=== PATIENT | male | born 1935 | race Caucasian/White ===

== ENCOUNTER 2018-07-05 14:39 | Observation (INO) | payer MEDICARE ==
[2018-07-05] MEDS ORDERED: BACIGUENT PACKET TP ONE (14:46)
--- NOTE | 2018-07-05 14:52 | ERPHSYRPT ---
- History of Present Illness Time Seen by Provider: 07/05/18 14:40 Source: patient, family Exam Limitations: no limitations Physician History: patient falling frequently at home; fell Tuesday - confused and slurred speech after that cleared in less then 24 hrs; CT was neg for bleed or stroke; fell again today hitting head and right elbow; suffered skin tear to elbow; no pain; patient remembers falling - tripped at home- not witnessed; confused and slurred speech after fall again today- cleared faster but still mentally "OFF" per family; no neck pain; no seizures or incontinence of focal weakness; general weakness Occurred: this morning, days ago (also 3 days ago) Reason for Fall: lost balance, fell from standing pos Injuries/Pain Location: head, upper extremity (right elbow) Loss of Consciousness: no loss of consciousness Quality: dullness Severity of Pain-Max: mild Severity of Pain-Current: none Modifying Factors: Improves With: nothing Associated Symptoms (Fall): denies symptoms Allergies/Adverse Reactions: No Known Drug Allergies Allergy (Verified 07/05/18 14:55) Home Medications: Clopidogrel Bisulfate [Clopidogrel] 75 mg PO DAILY 07/05/18 [History] Famotidine [Pepcid] 40 mg PO BID 07/05/18 [History] Folic Acid 1 mg PO DAILY 07/05/18 [History] Insulin Detemir [Levemir] 10 units SQ HS 07/05/18 [History] Isosorbide Mononitrate 20 mg [monoKET 20 MG] 20 mg PO TID 07/05/18 [History] Levothyroxine Sodium 75 mcg PO DAILY 07/05/18 [History] Metoprolol Succinate 50 mg [Toprol Xl 50 MG] 50 mg PO DAILY 07/05/18 [ History] Mirtazapine 15 mg PO HS 07/05/18 [History] Ranolazine 500 MG [Ranexa 500 MG] 500 mg PO BID 07/05/18 [History] Rosuvastatin Calcium 5 mg PO DAILY 07/05/18 [History] - Review of Systems Constitutional: No Symptoms Eyes: No Symptoms Ears, Nose, & Throat: No Symptoms Respiratory: No Cough, No Dyspnea, No Wheezing Cardiac: No Chest Pain, No Palpitations, No Syncope Abdominal/Gastrointestinal: No Abdominal Pain, No Nausea, No Vomiting, No Diarrhea Genitourinary Symptoms: No Dysuria, No Hematuria, No Incontinence, No Urinary Retention Musculoskeletal: Arthralgias, Fall, Injury (right elbow skin tear; abrasion post occiput), No Joint Redness, No Joint Pain, No Joint Swelling Skin: No Symptoms Neurological: No Symptoms Psychological: No Symptoms Endocrine: No Symptoms Hematologic/Lymphatic: Anemia, Easy Bleeding, Easy Bruising Immunological/Allergic: No Symptoms - Past Medical History Pertinent Past Medical History: Yes - Past Surgical History Past Surgical History: Yes - Social History Smoking Status: Never smoker Exposure to second hand smoke: No Alcohol Use: None Drug Use: none Patient Lives Alone: Yes Significant Family History: no pertinent family hx - Female History Hx Now: No - Nursing Vital Signs Nursing Vital Signs: Initial Vital Signs Temperature 97.8 F 07/05/18 14:40 Pulse Rate 75 07/05/18 14:40 Blood Pressure 188/104 07/05/18 14:40 O2 Sat by Pulse Oximetry 100 07/05/18 14:40 Pain Scale Pain Intensity 0 - [place] Coma Score Best Eye Response ([place]): (4) open spontaneously Best Verbal Response ([place]): (5) oriented Best Motor Response ([place]): (6) obeys commands [place] Total: 15 - Physical Exam General Appearance: mild distress, alert, thin, other (hard of hearing) Head Injury: lacerations (post occiput; no bleeding or FB), No active bleeding, No Merino's Sign, No raccoon eyes, No swelling, No tenderness Eye Exam: PERRL/EOMI, eyes nml inspection, other (fundi benign) ENT Exam: airway nml, nml ext.inspection, decreased hearing, No evidence of ENT injury, No clotted nasal blood, No malocclusion Neck Exam: supple, trachea midline, full range of motion, normal alignment, normal inspection, No focal neuro deficit, No muscle spasm, No paraspinous muscle tender, No pain on movement of neck, No stiff neck, No tenderness, No meningismus, No carotid bruit, No JVD, No subcutaneous emphysema Respiratory/Chest Exam: normal breath sounds, No chest tenderness, No respiratory distress, No ecchymosis, No crepitus, No rales, No rhonchi, No wheezing, No subcutaneous emphysema, No rib tenderness, No palpable fracture, No paradoxical movements Cardiovascular Exam: normal heart sounds, regular rate/rhythm, normal peripheral pulses, No murmur, No edema, No JVD Gastrointestinal Exam: soft, normal bowel sounds, No tenderness, No distention, No guarding, No pulsatile mass, No rebound, No organomegaly Genitalia Exam: normal genital exam Rectal Exam: deferred Back Exam: normal inspection, normal range of motion, No CVA tenderness, No vertebral tenderness, No rash, No point tenderness Extremity Exam: normal inspection (except for post right elbow with two small bleeding skin tears- no FB), normal range of motion, capillary refill <3 sec, pelvis stable, lacerations (skin teas post right elbow x 2), No riya's sign, No joint swelling, No bony point tenderness, No hip tenderness, No pain with movement, No pedal edema Peripheral Pulses: carotid (R): 4+, carotid (L): 4+, femoral (R): 4+, femoral (L ): 4+, dorsalis-pedis (R): 3+, dorsalis-pedis (L): 3+ Neurologic Exam: alert, oriented x 3, cooperative, bar turner II-XII nml as tested, normal mood/affect, sensation nml, No nml cerebellar function (poor balance), No nml station & gait (unsteady without help), No motor deficits, No facial droop, No slurred speech Skin Exam: normal color, warm, dry, ecchymosis (multiple old), laceration ( scalp post occiput 1 cm non- bleeding; skin tears psot right elbow x 2), No rash , No petechiae, No cyanosis SpO2 Interpretation: normal SpO2: 100 O2 Delivery: Room Air - Course Nursing assessment & vital signs reviewed: Yes - CT Exams Head CT Interpretation: Tele-radiologist Report, No/Intracranial Hemorrhag Ordered Tests: Active Orders 24 hr Category Date Time Status Accucheck ACHS Care 07/05/18 16:11 Ordered Accucheck STAT Care 07/05/18 14:44 Active Ambulate Patient ROUTINE Care 07/05/18 14:44 Active Call Admit Doctor for Orders ON ADMISSION Care 07/05/18 16:13 Ordered Branch Manager STAT Care 07/05/18 14:45 Active Code Status Order ROUTINE Care 07/05/18 16:12 Ordered Fall Protocol ROUTINE Care 07/05/18 16:13 Ordered IV Care Q6H Care 07/05/18 16:12 Ordered IV Insertion STAT Care 07/05/18 14:44 Active Neuro Checks Q4H Care 07/05/18 16:11 Ordered Orthostatic Vital Signs STAT Care 07/05/18 14:[address] in Observation ROUTINE Care 07/05/18 16:12 Ordered Pulse Oximetry (ED) STAT Care 07/05/18 14:44 Active Re-Check Vital Signs STAT Care 07/05/18 14:44 Active Sammy Megn, Apply ROUTINE Care 07/05/18 16:11 Ordered Telemetry q6h Care 07/05/18 16:11 Ordered Weight,Daily 0600 Care 07/05/18 16:11 Ordered Wound Care STAT Care 07/05/18 14:46 Active 2000 Calorie ADA Diet 07/05/18 Dinner Ordered HEAD WITHOUT CONTRAST [CT] Stat Exams 07/05/18 14:44 Completed MRI BRAIN WITH CONTRAST [MRI] Stat Exams 07/05/18 16:15 Ordered BMP Stat Lab 07/05/18 15:20 Completed CBC W DIFF Stat Lab 07/05/18 15:20 Completed PROTIME WITH INR Stat Lab 07/05/18 15:20 Completed Transfer Order Routine Transfer 07/05/18 Ordered Medication Summary Generic Name Dose Route Start Last Admin Trade Name Freq PRN Reason Stop Dose Admin Sodium Chloride 1,000 mls @ 100 mls/hr 07/05/18 14:45 07/05/18 15:55 Sodium Chloride 0.9% 1000 Ml IV 08/04/18 14:44 100 mls/hr .Q10H KATHYA Administration Sodium Chloride 1,000 mls @ 100 mls/hr 07/05/18 16:15 Sodium Chloride 0.9% 1000 Ml IV 08/04/18 16:14 .Q10H KATHYA Discontinued Medications Generic Name Dose Route Start Last Admin Trade Name Freq PRN Reason Stop Dose Admin Bacitracin Zinc 0.9 gm 07/05/18 14:46 07/05/18 15:55 Baciguent Packet TP 07/05/18 14:47 0.9 gm STAT ONE Administration Bacitracin Zinc Confirm 07/05/18 15:47 Baciguent Packet Administered 07/05/18 15:48 Dose 1 gm .ROUTE .STK-MED ONE Lab/Rad Data: Laboratory Result Diagrams 07/05/18 15:20 07/05/18 15:20 Laboratory Results 07/05/18 07/05/18 07/05/18 Range/Units 15:20 15:20 15:20 WBC 4.5 (4.0-10.5) K/mm3 RBC 3.15 L (4.1-5.6) M/mm3 Hgb 10.1 L (12.5-18.0) gm/dl Hct 29.5 L (42-50) % MCV 93.7 (78-100) fl MCH 32.0 (26-32) pg MCHC 34.2 (32-36) g/dl RDW 13.5 (11.5-14.0) % Plt Count 96 L (150-450) K/mm3 MPV 8.7 (6-9.5) fl Gran % 62.1 (36.0-66.0) % Eos # (Auto) 0.11 (0-0.5) Absolute Lymphs (auto) 1.27 (1.0-4.6) Absolute Monos (auto) 0.32 (0.0-1.3) Lymphocytes % 28.0 (24.0-44.0) % Monocytes % 7.1 (0.0-12.0) % Eosinophils % 2.4 (0.00-5.0) % Basophils % 0.4 (0.0-0.4) % Absolute Granulocytes 2.81 (1.4-6.9) Basophils # 0.02 (0-0.4) PT 12.4 (8.83-12.87) SECONDS INR 1.07 (0.8-3.0) Sodium 140 (137-145) mmol/L Potassium 5.1 (3.5-5.1) mmol/L Chloride 112 H (98-107) mmol/L Carbon Dioxide 19 L (22-30) mmol/L Anion Gap 14.2 (5-15) MEQ/L BUN 29 H (9-20) mg/dL Creatinine 1.43 H (0.66-1.25) mg/dL Estimated GFR 50.4 ML/MIN Glucose 310 H (74-106) mg/dL Calcium 8.1 L (8.4-10.2) mg/dL Slides for Path Review YES reviewed - Progress Progress: improved, re-examined (after xr) Progress Note: 07/05/18 15:01 family at bedside; will get FSBS and OSVS; labs CT head; clean and dress skin tears; will monitor and recheck; sats good 07/05/18 15:[address] ; BS 301; family at bedside; CT result pending; patient speech slow, thick and occassionally slight slurring; patient subdued compared to normal; lives with who has memory issues; after last fall had weakness one side for a while; not now 07/05/18 15:27 CT neg; labs pending; 07/05/18 15:31 OSVS tolerated ok; no change; family at bedside - informed of CT results; 07/05/18 16:08 recheck and reviewed labs - anemia- low plt; elevated renal function and BS; Dr Larose consulted and will place in Obs for further evaluation; patient and family notified and concur Discussed with : Rick (consulted and will admit to Obs) Will see patient in: hospital (observation) Counseled pt/family regarding: lab results, diagnosis, need for follow-up, rad results - Departure Time of Disposition: 16:09 Departure Disposition: Observation Clinical Impression: Frequent falls, Head injury, acute, Altered mental status, unspecified Condition: Fair Critical Care Time: No Referrals: EVAN LAROSE MD [Primary Care Provider] -
--- NOTE | 2018-07-05 15:29 | XRAY ---
Indication: Head injury following fall. Plavix therapy. Multiple contiguous axial images obtained through the head without contrast. Comparison: One day earlier. Stable age-appropriate global atrophy and mild periventricular degenerative micro-ischemia. Again no acute intracranial hemorrhage, abnormal extra-axial fluid question, or mass effect. Fourth ventricle is midline. Bony calvarium remains intact. Stable mucosal thickening of the right sphenoid sinus. Remaining visualized paranasal sinuses and mastoid air cells are clear. Impression: Stable nonacute senile brain with right sphenoid sinus disease. CT DI 49.41
[2018-07-05 15:33] LABS: BASOPHIL % 0.4 % (0.0-0.4); Basophil (Absolute #) 0.02 (0-0.4); Eosinophil % 2.4 % (0.00-5.0); Eosinophil (Absolute #) 0.11 (0-0.5); Granulocyte Absolute (ANC) 2.81 (1.4-6.9); Granulocytes % 62.1 % (36.0-66.0); Hematocrit 29.5 % (42-50); Hemoglobin 10.1 gm/dl (12.5-18.0); Lymphocyte (Absolute #) 1.27 (1.0-4.6); Mean Cell Volume 93.7 fl (78-100); Mean Corpuscular Hgb Concent. 34.2 g/dl (32-36); Mean Platelet Volume 8.7 fl (6-9.5); Monocyte (Absolute #) 0.32 (0.0-1.3); Monocytes % 7.1 % (0.0-12.0); Platelet Count 96 K/mm3 (150-450); Red Blood Count 3.15 M/mm3 (4.1-5.6); Red Cell Distribution Width 13.5 % (11.5-14.0); White Blood Count 4.5 K/mm3 (4.0-10.5)
[2018-07-05 15:36] LABS: INR 1.07 (0.8-3.0); PROTIME 12.4 SECONDS (8.83-12.87)
[2018-07-05 15:40] LABS: ANION GAP 14.2 MEQ/L (5-15); Calcium 8.1 mg/dL (8.4-10.2); Creatinine 1 1.43 mg/dL (0.66-1.25); Potassium 5.1 mmol/L (3.5-5.1)
[2018-07-05] MEDS ORDERED: BACIGUENT PACKET ONE (15:47)
[2018-07-05 15:54] LABS: Slide Review 1 YES
[2018-07-05] MEDS: Sodium Chloride 0.9% 1000 ML 1,000 ML IV SCH (15:55)
[2018-07-05] MEDS ORDERED: Sodium Chloride 0.9% 1000 ML 1,000 ML IV SCH (16:15)
[2018-07-05] MEDS ORDERED: APRESOLINE 20 MG/ML INJ IV PRN (18:00)
[2018-07-05] MEDS ORDERED: Pepcid 20 MG PO SCH (22:00)
[2018-07-05] MEDS: Lantus Insulin SQ SCH (22:02)
[2018-07-05] MEDS: Colace 100 MG PO SCH (22:02)
[2018-07-05] MEDS: NovoLOG Insulin SQ PRN (22:03)
[2018-07-05] MEDS: monoKET 20 MG PO SCH (22:03)
[2018-07-05] MEDS: Ranexa 500 MG PO SCH (22:03)
[2018-07-05] MEDS: Pepcid 20 MG PO SCH (22:03)
[2018-07-05] MEDS: TYLENOL 325 MG PO PRN (23:28)
[2018-07-06] MEDS: Sodium Chloride 0.9% 1000 ML 1,000 ML IV SCH ×3 (01:47→23:30)
--- NOTE | 2018-07-06 07:35 | PCM.HP ---
History of Present Illness - Chief Complaint Chief Complaint: Frequent Falls History of Present Illness: is a 82 year old male who was followed by Dr Oakes and has not yet established with me, he arrived yesterday in the emergency room with family complaining of frequent falls at home with some confusion and slurred speech. He is by himself this morning but does relay multiple falls in the last several weeks, he feels like he has a hard time thinking of things and finding words, he denies any focal weakness or numbness to his arms or legs. It sounds as though he has been unsteady and had some falls for some time, normally ambulates with a walker at home. 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 - Review of Systems Constitutional: No Fever, No Chills Respiratory: No Cough, No Short Of Breath Cardiac: No Chest Pain, No Edema, No Syncope Abdominal/Gastrointestinal: No Abdominal Pain, No Nausea, No Vomiting, No Diarrhea Neurological: Gait Changes, Speech Changes, No Focal Weakness, No Headache, No Paralysis, No Seizure, No Sensory Changes Psychological: No Symptoms Medications & Allergies Home Medications: Home Medication List Calcium Carbonate [Tums] 200 mg PO UD PRN 07/05/18 [History Confirmed 07/05/18] Cholecalciferol (Vitamin D3) [D3 Dots] 2,000 unit PO DAILY 07/05/18 [History Confirmed 07/05/18] Clopidogrel Bisulfate [Clopidogrel] 75 mg PO DAILY 07/05/18 [History Confirmed 07/05/18] Diphenhydramine HCl 25 mg [Benadryl 25 mg Capsule] 50 mg PO HS PRN [History Confirmed 07/05/18] Docusate Sodium 1 tab PO BID 07/05/18 [History Confirmed 07/05/18] Famotidine [Pepcid] 40 mg PO BID 07/05/18 [History Confirmed 07/05/18] Folic Acid 1 mg PO DAILY 07/05/18 [History Confirmed 07/05/18] Insulin Detemir [Levemir] 10 units SQ HS 07/05/18 [History Confirmed 07/05/18] Iron,Carb/Vit C/Vit B12/Folic [Iron 100 Plus Tablet] 1 each PO DAILY 07/05/18 [ History Confirmed 07/05/18] Isosorbide Mononitrate 20 mg [monoKET 20 MG] 20 mg PO TID 07/05/18 [History Confirmed 07/05/18] Levothyroxine Sodium 75 mcg PO DAILY 07/05/18 [History Confirmed 07/05/18] Melatonin 1 cap PO HS PRN 07/05/18 [History Confirmed 07/05/18] Metoprolol Succinate 50 mg [Toprol Xl 50 MG] 50 mg PO DAILY 07/05/18 [ History Confirmed 07/05/18] Mirtazapine 15 mg PO HS PRN 07/05/18 [History Confirmed 07/05/18] Mupirocin Calcium [Mupirocin] 30 gm TP TID 07/05/18 [History Confirmed 07/05/18] Naproxen Sodium 220 mg [Aleve 220 MG] 220 mg PO Q8H PRN PRN 07/05/18 [ History Confirmed 07/05/18] Ranolazine 500 MG [Ranexa 500 MG] 500 mg PO BID 07/05/18 [History Confirmed 07/05/18] Rosuvastatin Calcium 5 mg PO DAILY 07/05/18 [History Confirmed 07/05/18] Allergies/Adverse Reactions: Allergies Allergy/AdvReac Type Severity Reaction Status Date / Time No Known Drug Allergies Allergy Verified 07/05/18 14:55 - Past Medical History Past Medical History: Yes Neurological History: Peripheral Neuropathy ENT History: Cataracts Cardiac History: High Cholesterol, Myocardial Infarction ([place]) Respiratory History: No Pertinent History Endocrine Medical History: Diabetes Type II, Hypothyroidism GI Medical History: Gallbladder Disease History: Renal Disease Comment: chronic anemia - Past Surgical History Past Surgical History: Yes Cardiac History: CABG, Cardiac Stent, Valve Replacement GI Surgical History: Cholecystectomy Musculskeletal Surgical Hx: Orthopedic Surgery - Social History Smoking Status: Former smoker Exposure to second hand smoke: No Alcohol: None Drug Use: none Significant Family History: no pertinent family hx - Physical Exam Vital Signs: Vital Signs - 24 hr Temp Pulse Resp BP Pulse Ox 07/06/18 04:00 98.7 F 74 15 144/64 97 07/06/18 00:00 97.5 F 72 16 183/79 96 07/05/18 20:00 97.7 F 73 18 180/81 98 07/05/18 17:40 97.7 F 70 20 191/81 99 07/05/18 17:01 97.7 F 70 20 191/81 99 07/05/18 16:16 100 07/05/18 16:09 68 14 185/91 100 07/05/18 15:21 100 07/05/18 14:40 97.8 F 75 188/104 100 General Appearance: no apparent distress, thin Neurologic Exam: alert, cooperative, 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 nml as tested, sensation nml, aphasia, other (cranial nerve testing is normal, strength and sensation appear intact and symmetrical, he does have some difficulty findings words but speech is not slurred.), No motor weakness Respiratory Exam: normal breath sounds, lungs clear, No respiratory distress Cardiovascular Exam: regular rate/rhythm, normal heart sounds, normal peripheral pulses Gastrointestinal/Abdomen Exam: soft, normal bowel sounds, No tenderness, No mass Extremity Exam: normal inspection, normal range of motion, pelvis stable Skin Exam: normal color, warm, dry, No rash Results - Labs Lab/Micro Results: Accuchecks Accucheck Value: 237 Accucheck Value: 301 Lab Results-Last 24 Hours 07/05/18 07/05/18 07/05/18 Range/Units 15:20 15:20 15:20 WBC 4.5 (4.0-10.5) K/mm3 RBC 3.15 L (4.1-5.6) M/mm3 Hgb 10.1 L (12.5-18.0) gm/dl Hct 29.5 L (42-50) % MCV 93.7 (78-100) fl MCH 32.0 (26-32) pg MCHC 34.2 (32-36) g/dl RDW 13.5 (11.5-14.0) % Plt Count 96 L (150-450) K/mm3 MPV 8.7 (6-9.5) fl Gran % 62.1 (36.0-66.0) % Eos # (Auto) 0.11 (0-0.5) Absolute Lymphs (auto) 1.27 (1.0-4.6) Absolute Monos (auto) 0.32 (0.0-1.3) Lymphocytes % 28.0 (24.0-44.0) % Monocytes % 7.1 (0.0-12.0) % Eosinophils % 2.4 (0.00-5.0) % Basophils % 0.4 (0.0-0.4) % Absolute Granulocytes 2.81 (1.4-6.9) Basophils # 0.02 (0-0.4) PT 12.4 (8.83-12.87) SECONDS INR 1.07 (0.8-3.0) Sodium 140 (137-145) mmol/L Potassium 5.1 (3.5-5.1) mmol/L Chloride 112 H (98-107) mmol/L Carbon Dioxide 19 L (22-30) mmol/L Anion Gap 14.2 (5-15) MEQ/L BUN 29 H (9-20) mg/dL Creatinine 1.43 H (0.66-1.25) mg/dL Estimated GFR 50.4 ML/MIN Glucose 310 H (74-106) mg/dL Calcium 8.1 L (8.4-10.2) mg/dL Slides for Path Review YES Accuchecks Accucheck Value: 237 Accucheck Value: 301 - Radiology Impressions Radiology Exams & Impressions: Radiology Procedures Category Date Time Status HEAD WITHOUT CONTRAST [CT] Stat Exams 07/05/18 14:44 Completed MRI BRAIN WITH CONTRAST [MRI] Stat Exams 07/06/18 Ordered Assessment/Plan (1) CVA (cerebral vascular accident) Current Visit: Yes Status: Acute Assessment & Plan: head ct negative but patient has been hypertensive with new onset of expressive aphasia which points to a neurological insult, will obtain MRI today and neurology consult. will add 81mg aspirin to his plavix at this time. I have ordered prn hydralazine only to be given for bp >180/110 due to suspicion of acute or subacute infarct. will likely need rehab placement pending results. Code(s): I63.9 - CEREBRAL INFARCTION, UNSPECIFIED (2) Altered mental status, unspecified Current Visit: Yes Status: Acute Code(s): R41.82 - ALTERED MENTAL STATUS, UNSPECIFIED (3) Frequent falls Current Visit: Yes Status: Acute Code(s): R29.6 - REPEATED FALLS
[2018-07-06] MEDS: TYLENOL 325 MG PO PRN ×3 (07:56→22:41)
[2018-07-06] MEDS ORDERED: CALCIUM CARBONATE 200 MG PO PRN (08:19)
[2018-07-06] MEDS ORDERED: Tums EX 750 MG PO PRN (08:25)
[2018-07-06] MEDS: Ranexa 500 MG PO SCH ×2 (09:35→22:41)
[2018-07-06] MEDS: monoKET 20 MG PO SCH ×3 (09:36→22:41)
[2018-07-06] MEDS: PLAVIX 75 MG Tablet PO SCH (09:36)
[2018-07-06] MEDS: Zocor 10MG PO SCH (09:36)
[2018-07-06] MEDS: Toprol Xl 50 MG PO SCH (09:36)
[2018-07-06] MEDS: SYNTHROID 75 MCG PO SCH (09:36)
[2018-07-06] MEDS: ECOTRIN 81 MG PO SCH (09:37)
[2018-07-06] MEDS: Bactroban OINTMENT TOP SCH ×3 (09:37→22:40)
[2018-07-06] MEDS: Colace 100 MG PO SCH ×2 (09:37→22:40)
[2018-07-06] MEDS: Pepcid 20 MG PO SCH ×2 (09:37→22:41)
[2018-07-06] MEDS: FOLATE 1 MG PO SCH (09:41)
--- NOTE | 2018-07-06 09:51 | XRAY ---
Indication: TIA symptoms. Frequent falls. Slurred speech. Sagittal, coronal, and axial MRI brain was performed without contrast using T1, T2, FLAIR, diffusion, and ADC sequences. Comparison: November 25, 2010. Again age-appropriate global atrophy and mild periventricular degenerative micro-ischemia signal bilaterally. No acute intracranial hemorrhage, abnormal extra-axial fluid collection, or mass effect. Diffusion images are negative for restricted signal. Fourth ventricle is midline. 7/8 cranial nerve complex bilaterally symmetric. Normal flow void signal within the major intracerebral circulation. Normal-appearing craniocervical junction and sella turcica. Again chronic mucosal thickening of the right sphenoid sinus and 11 mm polyp/retention cyst floor of the left maxillary sinus. Remaining paranasal sinuses are clear. Impression: 1. Again aging brain including atrophy and degenerative micro-ischemia. 2. No acute intracranial abnormalities or evidence for evolving large vessel territorial stroke. 3. Incidental paranasal sinus disease.
[2018-07-06] MEDS ORDERED: MUPIROCIN CALCIUM TP SCH (10:00)
[2018-07-06 11:16] LABS: Folate (Folic Acid) > 20.0 ng/mL (2.76 - >20)
[2018-07-06] MEDS: NovoLOG Insulin SQ PRN ×2 (11:53→22:40)
[2018-07-06] MEDS: Lantus Insulin SQ SCH (22:40)
[2018-07-07 05:57] LABS: BASOPHIL % 0.4 % (0.0-0.4); Basophil (Absolute #) 0.02 (0-0.4); Eosinophil % 2.4 % (0.00-5.0); Eosinophil (Absolute #) 0.12 (0-0.5); Granulocyte Absolute (ANC) 2.78 (1.4-6.9); Granulocytes % 55.2 % (36.0-66.0); Hematocrit 27.3 % (42-50); Hemoglobin 8.9 gm/dl (12.5-18.0); Lymphocyte (Absolute #) 1.74 (1.0-4.6); Lymphocytes % 34.5 % (24.0-44.0); Mean Cell Volume 95.5 fl (78-100); Mean Corpuscular Hemoglobin 31.1 pg (26-32); Mean Corpuscular Hgb Concent. 32.6 g/dl (32-36); Mean Platelet Volume 9.1 fl (6-9.5); Monocyte (Absolute #) 0.38 (0.0-1.3); Monocytes % 7.5 % (0.0-12.0); Platelet Count 93 K/mm3 (150-450); Red Blood Count 2.86 M/mm3 (4.1-5.6); Red Cell Distribution Width 13.6 % (11.5-14.0)
[2018-07-07 06:16] LABS: ALBUMIN 3.6 g/dL (3.5-5.0); ANION GAP 12.6 MEQ/L (5-15); BILIRUBIN,TOTAL 0.4 mg/dL (0.2-1.3); Calcium 8.6 mg/dL (8.4-10.2); Creatinine 1 1.34 mg/dL (0.66-1.25); MAGNESIUM 2.2 mg/dL (1.6-2.3); Potassium 5.1 mmol/L (3.5-5.1); Total Protein 5.8 g/dL (6.3-8.2)
[2018-07-07] MEDS: Zocor 10MG PO SCH (08:27)
[2018-07-07] MEDS: Pepcid 20 MG PO SCH ×2 (08:27→21:30)
[2018-07-07] MEDS: Toprol Xl 50 MG PO SCH (08:27)
[2018-07-07] MEDS: monoKET 20 MG PO SCH ×3 (08:27→21:30)
[2018-07-07] MEDS: Colace 100 MG PO SCH ×2 (08:28→21:30)
[2018-07-07] MEDS: Bactroban OINTMENT TOP SCH ×3 (08:28→21:37)
[2018-07-07] MEDS: SYNTHROID 75 MCG PO SCH (08:28)
[2018-07-07] MEDS: PLAVIX 75 MG Tablet PO SCH (08:28)
[2018-07-07] MEDS: ECOTRIN 81 MG PO SCH (08:28)
[2018-07-07] MEDS: Sodium Chloride 0.9% 1000 ML 1,000 ML IV SCH (08:28)
[2018-07-07] MEDS: FOLATE 1 MG PO SCH (08:28)
[2018-07-07] MEDS: Ranexa 500 MG PO SCH ×2 (08:28→21:30)
--- NOTE | 2018-07-07 09:08 | PCM.NOTE ---
Date and Time: 07/07/18 09 Subjective Assessment: patient seems to be conversing better, joking with family. no weakness or numbness etc. Objective Exam General Appearance: no apparent distress, alert Neurologic Exam: alert, oriented x 3, cooperative, normal mood/affect, nml cerebellar function, sensation nml, No motor deficits Skin Exam: normal color, warm, dry Respiratory Exam: normal breath sounds, lungs clear, No respiratory distress Cardiovascular Exam: regular rate/rhythm, normal heart sounds Gastrointestinal/Abdomen Exam: soft, No tenderness, No mass OBJECTIVE DATA Vital Signs: Vital Signs - 24 hr Temp Pulse Resp BP Pulse Ox 07/07/18 07:20 98 F 69 20 171/72 99 07/07/18 04:00 98.3 F 72 16 172/76 98 07/07/18 00:00 98.2 F 70 16 156/70 98 07/06/18 20:00 98.2 F 69 16 164/71 99 07/06/18 15:38 97.9 F 72 19 166/70 99 07/06/18 11:37 97.6 F 71 13 160/70 99 Pain Assessment - Last Documented Pain Intensity 4 Pain Scale Used 0-10 Pain Scale Intake and Output: Intake & Output 07/04/18 07/05/18 07/06/18 07/07/18 11:59 11:59 11:59 11:59 Intake Total 1020 3113 Output Total 625 1425 Balance 395 1688 Weight 57.1 kg 57.2 kg Lab Results: Accuchecks Date 07/07/18 Date 07/06/18 Date 07/06/18 Time 07:30 Time 16:30 Time 11:30 Accucheck Value: 151 Accucheck Value: 267 Accucheck Value: 181 Accucheck Value: 344 Lab Results-Last 24 Hours 07/06/18 07/06/18 07/06/18 Range/Units 08:22 08:22 08:22 WBC (4.0-10.5) K/mm3 RBC (4.1-5.6) M/mm3 Hgb (12.5-18.0) gm/dl Hct (42-50) % MCV (78-100) fl MCH (26-32) pg MCHC (32-36) g/dl RDW (11.5-14.0) % Plt Count (150-450) K/mm3 MPV (6-9.5) fl Gran % (36.0-66.0) % Eos # (Auto) (0-0.5) Absolute Lymphs (auto) (1.0-4.6) Absolute Monos (auto) (0.0-1.3) Lymphocytes % (24.0-44.0) % Monocytes % (0.0-12.0) % Eosinophils % (0.00-5.0) % Basophils % (0.0-0.4) % Absolute Granulocytes (1.4-6.9) Basophils # (0-0.4) Sodium (137-145) mmol/L Potassium (3.5-5.1) mmol/L Chloride (98-107) mmol/L Carbon Dioxide (22-30) mmol/L Anion Gap (5-15) MEQ/L BUN (9-20) mg/dL Creatinine (0.66-1.25) mg/dL Estimated GFR ML/MIN Glucose (74-106) mg/dL Hemoglobin A1c 5.79 (4.5-6.0) % Calcium (8.4-10.2) mg/dL Magnesium (1.6-2.3) mg/dL Total Bilirubin (0.2-1.3) mg/dL AST (17-59) U/L ALT (0-50) U/L Alkaline Phosphatase (38-126) U/L Serum Total Protein (6.3-8.2) g/dL Albumin (3.5-5.0) g/dL Vitamin B12 > 1000 H (239-931) pg/mL Folic Acid > 20.0 (2.76 - >20) ng/mL TSH 3rd Generation 5.660 H (0.47-4.68) mIU/L Slides for Path Review 07/07/18 07/07/18 Range/Units 05:00 05:00 WBC 5.0 (4.0-10.5) K/mm3 RBC 2.86 L (4.1-5.6) M/mm3 Hgb 8.9 L (12.5-18.0) gm/dl Hct 27.3 L (42-50) % MCV 95.5 (78-100) fl MCH 31.1 (26-32) pg MCHC 32.6 (32-36) g/dl RDW 13.6 (11.5-14.0) % Plt Count 93 L (150-450) K/mm3 MPV 9.1 (6-9.5) fl Gran % 55.2 (36.0-66.0) % Eos # (Auto) 0.12 (0-0.5) Absolute Lymphs (auto) 1.74 (1.0-4.6) Absolute Monos (auto) 0.38 (0.0-1.3) Lymphocytes % 34.5 (24.0-44.0) % Monocytes % 7.5 (0.0-12.0) % Eosinophils % 2.4 (0.00-5.0) % Basophils % 0.4 (0.0-0.4) % Absolute Granulocytes 2.78 (1.4-6.9) Basophils # 0.02 (0-0.4) Sodium 142 (137-145) mmol/L Potassium 5.1 (3.5-5.1) mmol/L Chloride 113 H (98-107) mmol/L Carbon Dioxide 21 L (22-30) mmol/L Anion Gap 12.6 (5-15) MEQ/L BUN 22 H (9-20) mg/dL Creatinine 1.34 H (0.66-1.25) mg/dL Estimated GFR 54.4 ML/MIN Glucose 101 (74-106) mg/dL Hemoglobin A1c (4.5-6.0) % Calcium 8.6 (8.4-10.2) mg/dL Magnesium 2.2 (1.6-2.3) mg/dL Total Bilirubin 0.40 (0.2-1.3) mg/dL AST 34 (17-59) U/L ALT 52 H (0-50) U/L Alkaline Phosphatase 69 (38-126) U/L Serum Total Protein 5.8 L (6.3-8.2) g/dL Albumin 3.6 (3.5-5.0) g/dL Vitamin B12 (239-931) pg/mL Folic Acid (2.76 - >20) ng/mL TSH 3rd Generation (0.47-4.68) mIU/L Slides for Path Review Radiology Exams: Radiology Procedures Category Date Time Status CAROTID BILATERAL [US] Routine Exams 07/07/18 05:00 Ordered HEAD WITHOUT CONTRAST [CT] Stat Exams 07/05/18 14:44 Completed MRI BRAIN W/O CONTRAST [MRI] Stat Exams 07/06/18 09:36 Completed Assessment/Plan (1) CVA (cerebral vascular accident) Current Visit: Yes Status: Acute Assessment & Plan: continue aspirin, plavix and statin therapy. bp is stable at this time and will allow to be slightly hypertensive Code(s): I63.9 - CEREBRAL INFARCTION, UNSPECIFIED (2) Altered mental status, unspecified Current Visit: Yes Status: Acute Code(s): R41.82 - ALTERED MENTAL STATUS, UNSPECIFIED (3) Frequent falls Current Visit: Yes Status: Acute Code(s): R29.6 - REPEATED FALLS
--- NOTE | 2018-07-07 10:38 | XRAY ---
Indication: Stroke. Two-dimensional sonogram and color Doppler imaging of the carotid arteries of the neck performed. Comparison: None Examination of the right carotid circulation demonstrates tortuous common carotid artery. Mild heterogeneous plaquing seen in the level of the bulb extending into the origin and proximal internal carotid artery. PSV of the CCA is 75 cm/s. PSV of the ICA is 69 cm/s. ICA/CCA ratio is 0.9. Normal antegrade vertebral artery flow. Examination of the left carotid circulation demonstrates minimal scattered calcified plaquing throughout the common carotid artery. Mild heterogeneous plaquing at the level of the bulb extending into the origins of the internal and external carotid arteries. PSV of the CCA is 64 cm/s. PSV of the ICA is 145 cm/s. ICA/CCA ratio is 2.3. Normal antegrade vertebral artery flow. Impression: Minimal/mild scattered arteriosclerotic plaquing, left greater than right. Velocity measurements and ratios favor 50-69% stenosis on the left and less than 50% stenosis on the right.
--- NOTE | 2018-07-07 12:27 | XRAY ---
Indication: alf placement. Comparison: November 25, 2010. Portable chest again demonstrates bilateral tiny calcified granulomas. No focal infiltrate, consolidation, or large effusion. Heart is not enlarged again with cardiac valvular replacement surgery. Bony thorax intact again with mild osteopenia and degenerative changes. Partially visualized lower cervical fusion surgery. Impression: Nonacute chest with chronic features.
[2018-07-07] MEDS: NovoLOG Insulin SQ PRN (21:30)
[2018-07-07] MEDS: Lantus Insulin SQ SCH (21:30)
[2018-07-07] MEDS ORDERED: NON-FORMULARY ITEM PO SCH (22:00)
[2018-07-08 05:38] LABS: BASOPHIL % 0.4 % (0.0-0.4); Basophil (Absolute #) 0.02 (0-0.4); Eosinophil % 2.6 % (0.00-5.0); Eosinophil (Absolute #) 0.13 (0-0.5); Granulocyte Absolute (ANC) 2.72 (1.4-6.9); Granulocytes % 54.5 % (36.0-66.0); Hematocrit 25.9 % (42-50); Hemoglobin 8.7 gm/dl (12.5-18.0); Lymphocyte (Absolute #) 1.68 (1.0-4.6); Lymphocytes % 33.7 % (24.0-44.0); Mean Cell Volume 94.2 fl (78-100); Mean Corpuscular Hemoglobin 31.6 pg (26-32); Mean Corpuscular Hgb Concent. 33.6 g/dl (32-36); Mean Platelet Volume 9.4 fl (6-9.5); Monocyte (Absolute #) 0.44 (0.0-1.3); Monocytes % 8.8 % (0.0-12.0); Platelet Count 94 K/mm3 (150-450); Red Blood Count 2.75 M/mm3 (4.1-5.6); Red Cell Distribution Width 13.3 % (11.5-14.0)
[2018-07-08 06:03] LABS: ANION GAP 12.4 MEQ/L (5-15); Calcium 8.9 mg/dL (8.4-10.2); Creatinine 1 1.39 mg/dL (0.66-1.25); Potassium 4.9 mmol/L (3.5-5.1)
[2018-07-08] MEDS: Ranexa 500 MG PO SCH ×2 (10:54→20:46)
[2018-07-08] MEDS: Zocor 10MG PO SCH (10:54)
[2018-07-08] MEDS: Pepcid 20 MG PO SCH ×2 (10:54→20:46)
[2018-07-08] MEDS: monoKET 20 MG PO SCH ×3 (10:54→20:46)
[2018-07-08] MEDS: Toprol Xl 50 MG PO SCH (10:54)
[2018-07-08] MEDS: Colace 100 MG PO SCH ×2 (10:54→20:47)
[2018-07-08] MEDS: FOLATE 1 MG PO SCH (10:54)
[2018-07-08] MEDS: ECOTRIN 81 MG PO SCH (10:54)
[2018-07-08] MEDS: SYNTHROID 75 MCG PO SCH (10:54)
[2018-07-08] MEDS: PLAVIX 75 MG Tablet PO SCH (10:54)
[2018-07-08] MEDS: Bactroban OINTMENT TOP SCH ×3 (10:55→20:50)
[2018-07-08] MEDS ORDERED: Levofloxacin 500 MG Tablet PO ONE (11:35)
--- NOTE | 2018-07-08 11:41 | PCM.NOTE ---
Date and Time: 07/08/18 1136 Subjective Assessment: Patient reports he has some pain around his sore on his 2nd toe of his right foot. he states he has been finishing up keflex for this prescribed by ROSA MARIA Chacon but it hasn't gotten much better. He reports it stops hurting if he walks on his foot. He is hard of hearing. He denies any constipation or other pain. He is awaiting placement for rehab at [facility]. - Review of Systems Constitutional: No Symptoms Eyes: No Symptoms Ears, Nose, & Throat: Hearing Changes Respiratory: No Symptoms Cardiac: No Symptoms Abdominal/Gastrointestinal: No Symptoms Genitourinary Symptoms: No Symptoms Musculoskeletal: No Symptoms Skin: Other (sore on left 2nd toe) Objective Exam General Appearance: no apparent distress, alert, other (very hard of hearing) Neurologic Exam: alert, cooperative, normal mood/affect, other Skin Exam: normal color, other (0.5 x 0.5 cm ulcer on 2nd toe of right foot with surrounding tenderness and erythema.) Respiratory Exam: normal breath sounds, lungs clear, No crackles/rales, No rhonchi, No wheezing Cardiovascular Exam: regular rate/rhythm, normal heart sounds, No murmur, No friction rub, No gallop Gastrointestinal/Abdomen Exam: soft, normal bowel sounds, No tenderness, No distention, No mass Extremity Exam: other (no c/c/e) OBJECTIVE DATA Vital Signs: Vital Signs - 24 hr Temp Pulse Resp BP Pulse Ox 07/08/18 08:00 98.5 F 67 16 145/65 97 07/08/18 04:00 98.5 F 71 16 152/69 98 07/08/18 00:00 98.3 F 73 14 157/68 96 07/07/18 20:00 97.6 F 73 20 163/76 100 07/07/18 16:00 98.4 F 70 18 182/81 100 07/07/18 11:55 97.6 F 67 21 137/63 98 Pain Assessment - Last Documented Pain Intensity 0 Pain Scale Used 0-10 Pain Scale Intake and Output: Intake & Output 07/06/18 07/07/18 07/08/18 07/09/18 06:59 06:59 06:59 07:59 Intake Total 660 3633 1653 240 Output Total 707 6345 875 Balance 35 6248 778 240 Weight 57.1 kg 57.2 kg 57.2 kg Lab Results: Accuchecks Date 07/08/18 Date 07/07/18 Time 07:30 Time 22:00 Accucheck Value: 90 Accucheck Value: 363 Accucheck Value: 187 Lab Results-Last 24 Hours 07/08/18 07/08/18 Range/Units 05:34 05:34 WBC 5.0 (4.0-10.5) K/mm3 RBC 2.75 L (4.1-5.6) M/mm3 Hgb 8.7 L (12.5-18.0) gm/dl Hct 25.9 L (42-50) % MCV 94.2 (78-100) fl MCH 31.6 (26-32) pg MCHC 33.6 (32-36) g/dl RDW 13.3 (11.5-14.0) % Plt Count 94 L (150-450) K/mm3 MPV 9.4 (6-9.5) fl Gran % 54.5 (36.0-66.0) % Eos # (Auto) 0.13 (0-0.5) Absolute Lymphs (auto) 1.68 (1.0-4.6) Absolute Monos (auto) 0.44 (0.0-1.3) Lymphocytes % 33.7 (24.0-44.0) % Monocytes % 8.8 (0.0-12.0) % Eosinophils % 2.6 (0.00-5.0) % Basophils % 0.4 (0.0-0.4) % Absolute Granulocytes 2.72 (1.4-6.9) Basophils # 0.02 (0-0.4) Sodium 140 (137-145) mmol/L Potassium 4.9 (3.5-5.1) mmol/L Chloride 111 H (98-107) mmol/L Carbon Dioxide 22 (22-30) mmol/L Anion Gap 12.4 (5-15) MEQ/L BUN 23 H (9-20) mg/dL Creatinine 1.39 H (0.66-1.25) mg/dL Estimated GFR 52.1 ML/MIN Glucose 74 (74-106) mg/dL Calcium 8.9 (8.4-10.2) mg/dL Radiology Exams: Radiology Procedures Category Date Time Status CAROTID BILATERAL [US] Routine Exams 07/07/18 05:00 Completed CHEST 1 VIEW (PORTABLE) Routine Exams 07/07/18 12:10 Completed Assessment/Plan (1) CVA (cerebral vascular accident) Current Visit: Yes Status: Acute Assessment & Plan: Continue with plavix and aspirin. Carotid doppler showed 50-69% stenosis in left carotid artery so would benefit from outpatient consultation with director of analytical development about possible carotid endarterectomy on this side. She had <50% stenosis on right. Check fasting lipid profile and conitnue statin. Code(s): I63.9 - CEREBRAL INFARCTION, UNSPECIFIED (2) Diabetic foot ulcer associated with secondary diabetes mellitus Current Visit: Yes Status: Acute Qualifiers: Diabetic foot ulcer location: toe Laterality: right Assessment & Plan: Start levofloxacin as looks infected. His Hgb A1C was very good and last blood glucose was 90. Code(s): E08.621 - DIABETES MELLITUS DUE TO UNDERLYING CONDITION W FOOT ULCER; L97.509 - NON-PRESSURE CHRONIC ULCER OTH PRT UNSP FOOT W UNSP SEVERITY (3) Anemia Current Visit: Yes Status: Acute Qualifiers: Anemia type: unspecified type Qualified Code(s): D64.9 - Anemia, unspecified Assessment & Plan: Will check stool for hemoccult and iron and vit b 12 levels. Code(s): D64.9 - ANEMIA, UNSPECIFIED
[2018-07-08 12:46] LABS: Iron 54 ug/dL (49-181); Iron Saturation 23 % (20-39); TIBC 238 ug/dL (261-497)
[2018-07-08 13:55] LABS: Ferritin 1500 ng/mL (17.9-464); Vitamin B12 > 1000 pg/mL (239-931)
[2018-07-08] MEDS: NovoLOG Insulin SQ PRN ×2 (17:21→20:55)
[2018-07-08] MEDS: Lantus Insulin SQ SCH (20:48)
[2018-07-08] MEDS: PATIENT OWN MEDICATION PO SCH (20:52)
[2018-07-09] MEDS: TYLENOL 325 MG PO PRN ×3 (00:50→21:20)
[2018-07-09 05:26] LABS: BASOPHIL % 0.4 % (0.0-0.4); Basophil (Absolute #) 0.02 (0-0.4); Eosinophil % 2.7 % (0.00-5.0); Eosinophil (Absolute #) 0.12 (0-0.5); Granulocyte Absolute (ANC) 2.38 (1.4-6.9); Granulocytes % 53.2 % (36.0-66.0); Hematocrit 25.3 % (42-50); Hemoglobin 8.4 gm/dl (12.5-18.0); Lymphocyte (Absolute #) 1.65 (1.0-4.6); Lymphocytes % 36.8 % (24.0-44.0); Mean Cell Volume 94.8 fl (78-100); Mean Corpuscular Hgb Concent. 33.2 g/dl (32-36); Mean Platelet Volume 8.8 fl (6-9.5); Monocyte (Absolute #) 0.31 (0.0-1.3); Monocytes % 6.9 % (0.0-12.0); Platelet Count 83 K/mm3 (150-450); Red Blood Count 2.67 M/mm3 (4.1-5.6); Red Cell Distribution Width 13.6 % (11.5-14.0); White Blood Count 4.5 K/mm3 (4.0-10.5)
[2018-07-09 05:31] LABS: Mean Corpuscular Hemoglobin 31.4 pg (26-32)
[2018-07-09 05:37] LABS: ANION GAP 11.7 MEQ/L (5-15); Calcium 8.4 mg/dL (8.4-10.2); Creatinine 1 1.59 mg/dL (0.66-1.25)
[2018-07-09 05:48] LABS: Risk Ratio 3.9
[2018-07-09 07:11] LABS: Slide Review 1 YES
[2018-07-09] MEDS: Toprol Xl 50 MG PO SCH (10:13)
[2018-07-09] MEDS: Pepcid 20 MG PO SCH ×2 (10:13→21:10)
[2018-07-09] MEDS: Ranexa 500 MG PO SCH ×2 (10:13→21:11)
[2018-07-09] MEDS: ECOTRIN 81 MG PO SCH (10:13)
[2018-07-09] MEDS: SYNTHROID 75 MCG PO SCH (10:13)
[2018-07-09] MEDS: monoKET 20 MG PO SCH ×3 (10:13→21:11)
[2018-07-09] MEDS: FOLATE 1 MG PO SCH (10:13)
[2018-07-09] MEDS: PLAVIX 75 MG Tablet PO SCH (10:13)
[2018-07-09] MEDS: Levofloxacin 250MG Tablet PO SCH (10:13)
[2018-07-09] MEDS: Colace 100 MG PO SCH ×2 (10:13→21:11)
[2018-07-09] MEDS: Zocor 10MG PO SCH (10:13)
[2018-07-09] MEDS: NORVASC 5 MG PO SCH (10:15)
[2018-07-09] MEDS: Bactroban OINTMENT TOP SCH ×3 (10:18→21:13)
--- NOTE | 2018-07-09 11:15 | PCM.NOTE ---
Date and Time: 07/09/18 1110 Subjective Assessment: Patient reports that his 2nd right toe continues to hurt. He reports he thinks he has had an X-ray of this and when I look at his old record, I can fine an X- ray 06/21/18 that was read as negative. He also had arterial study of his femoral arteries bilat that showed occulsion of his right femoral artery (dated 07/04/18) and ordered by Dr. Jaskaran Hannon. Patient reports some generalized weakness. He is agreeable to going to rehab. - Review of Systems Constitutional: Weakness Eyes: No Symptoms Ears, Nose, & Throat: No Symptoms Respiratory: No Symptoms Cardiac: No Symptoms Abdominal/Gastrointestinal: No Symptoms Genitourinary Symptoms: No Symptoms Musculoskeletal: Other (right 2nd toe pain) Skin: Other (ulcer on foot) Neurological: No Symptoms Objective Exam General Appearance: no apparent distress Neurologic Exam: alert, cooperative, normal mood/affect Skin Exam: normal color, warm, other (0.5 x0.5 cm ulcer on right toe with minimal erythema surrounding; very tender to touch) Cardiovascular Exam: regular rate/rhythm, normal heart sounds, No murmur, No friction rub, No gallop Gastrointestinal/Abdomen Exam: soft, normal bowel sounds, No tenderness, No distention, No mass Extremity Exam: other (no c/c/e) OBJECTIVE DATA Vital Signs: Vital Signs - 24 hr Temp Pulse Resp BP Pulse Ox 07/09/18 07:26 97.7 F 76 17 165/70 97 07/09/18 05:00 98.7 F 67 12 143/67 97 07/09/18 00:00 98.4 F 72 16 137/63 98 07/08/18 20:00 97.6 F 72 20 163/69 97 07/08/18 16:00 98.5 F 70 18 144/61 99 07/08/18 12:00 97.8 F 68 16 182/74 99 Pain Assessment - Last Documented Pain Intensity 6 Pain Scale Used 0-10 Pain Scale Intake and Output: Intake & Output 07/07/18 07/08/18 07/09/18 07/10/18 05:59 05:59 06:59 06:59 Intake Total 240 Output Total Balance 240 Weight Lab Results: Accuchecks Date 07/09/18 Date 07/08/18 Date 07/08/18 Date 07/08/18 Time 07:30 Time 22:00 Time 16:30 Time 11:30 Accucheck Value: 77 Accucheck Value: 267 Accucheck Value: 204 Accucheck Value: 102 Lab Results-Last 24 Hours 07/08/18 07/08/18 07/09/18 Range/Units 05:00 05:00 05:05 WBC (4.0-10.5) K/mm3 RBC (4.1-5.6) M/mm3 Hgb (12.5-18.0) gm/dl Hct (42-50) % MCV (78-100) fl MCH (26-32) pg MCHC (32-36) g/dl RDW (11.5-14.0) % Plt Count (150-450) K/mm3 MPV (6-9.5) fl Gran % (36.0-66.0) % Eos # (Auto) (0-0.5) Absolute Lymphs (auto) (1.0-4.6) Absolute Monos (auto) (0.0-1.3) Lymphocytes % (24.0-44.0) % Monocytes % (0.0-12.0) % Eosinophils % (0.00-5.0) % Basophils % (0.0-0.4) % Absolute Granulocytes (1.4-6.9) Basophils # (0-0.4) Sodium (137-145) mmol/L Potassium (3.5-5.1) mmol/L Chloride (98-107) mmol/L Carbon Dioxide (22-30) mmol/L Anion Gap (5-15) MEQ/L BUN (9-20) mg/dL Creatinine (0.66-1.25) mg/dL Estimated GFR ML/MIN Glucose (74-106) mg/dL Calcium (8.4-10.2) mg/dL Iron 54 (49-181) ug/dL TIBC 238 L (261-497) ug/dL Iron Saturation 23 (20-39) % Ferritin 1500 H (17.9-464) ng/mL Triglycerides 87 (30-150) mg/dL Cholesterol 102 (50-200) mg/dL LDL Cholesterol 64 (30-100) mg/dL HDL Cholesterol 26 L (40-60) mg/dL Heart Disease Risk Ratio 3.9 Vitamin B12 > 1000 H (239-931) pg/mL Slides for Path Review 07/09/18 07/09/18 Range/Units 05:05 05:05 WBC 4.5 (4.0-10.5) K/mm3 RBC 2.67 L (4.1-5.6) M/mm3 Hgb 8.4 L (12.5-18.0) gm/dl Hct 25.3 L (42-50) % MCV 94.8 (78-100) fl MCH 31.4 (26-32) pg MCHC 33.2 (32-36) g/dl RDW 13.6 (11.5-14.0) % Plt Count 83 L (150-450) K/mm3 MPV 8.8 (6-9.5) fl Gran % 53.2 (36.0-66.0) % Eos # (Auto) 0.12 (0-0.5) Absolute Lymphs (auto) 1.65 (1.0-4.6) Absolute Monos (auto) 0.31 (0.0-1.3) Lymphocytes % 36.8 (24.0-44.0) % Monocytes % 6.9 (0.0-12.0) % Eosinophils % 2.7 (0.00-5.0) % Basophils % 0.4 (0.0-0.4) % Absolute Granulocytes 2.38 (1.4-6.9) Basophils # 0.02 (0-0.4) Sodium 140 (137-145) mmol/L Potassium 5.0 (3.5-5.1) mmol/L Chloride 111 H (98-107) mmol/L Carbon Dioxide 22 (22-30) mmol/L Anion Gap 11.7 (5-15) MEQ/L BUN 28 H (9-20) mg/dL Creatinine 1.59 H (0.66-1.25) mg/dL Estimated GFR 44.6 ML/MIN Glucose 77 (74-106) mg/dL Calcium 8.4 (8.4-10.2) mg/dL Iron (49-181) ug/dL TIBC (261-497) ug/dL Iron Saturation (20-39) % Ferritin (17.9-464) ng/mL Triglycerides (30-150) mg/dL Cholesterol (50-200) mg/dL LDL Cholesterol (30-100) mg/dL HDL Cholesterol (40-60) mg/dL Heart Disease Risk Ratio Vitamin B12 (239-931) pg/mL Slides for Path Review YES Radiology Exams: Radiology Procedures Category Date Time Status CHEST 1 VIEW (PORTABLE) Routine Exams 07/07/18 12:10 Completed TOE(S) (MIN 2 VIEWS) Routine Exams 07/09/18 Ordered Assessment/Plan (1) CVA (cerebral vascular accident) Current Visit: Yes Status: Acute Assessment & Plan: Continue with aspirin and plavix; plan for rehab at [facility] upon discharge; awaiting insurance approval. Code(s): I63.9 - CEREBRAL INFARCTION, UNSPECIFIED (2) Diabetic foot ulcer associated with secondary diabetes mellitus Current Visit: Yes Status: Acute Qualifiers: Diabetic foot ulcer location: toe Laterality: right Assessment & Plan: Redness around ulcer has improved with starting levofloxacin yesterday. Plan to continue this. Will repeat X-ray to look for possible osteomyelitis. His ferritin level was very high when checked for his anemia which is concerning. He has lower blood glucoses in the AM (70's to 90's); will try to adjust insulin to avoid this. Code(s): E08.621 - DIABETES MELLITUS DUE TO UNDERLYING CONDITION W FOOT ULCER; L97.509 - NON-PRESSURE CHRONIC ULCER OTH PRT UNSP FOOT W UNSP SEVERITY (3) Anemia Current Visit: Yes Status: Acute Qualifiers: Anemia type: due to chronic kidney disease Chronic kidney disease stage: stage 3 (moderate) Qualified Code(s): N18.3 - Chronic kidney disease, stage 3 (moderate); D63.1 - Anemia in chronic kidney disease Assessment & Plan: Stable at this time. Will discontinue further blood draws at this time as he has been stable. Code(s): D64.9 - ANEMIA, UNSPECIFIED (4) Cellulitis of toe of right foot Current Visit: Yes Status: Acute Assessment & Plan: Continue levofloxacin. Code(s): L03.031 - CELLULITIS OF RIGHT TOE (5) Peripheral arterial occlusive disease Current Visit: Yes Status: Acute Assessment & Plan: Will consult his farm implement engine mechanic, DR. Jaskaran Hannon, as this patient most likely will need revascularization of his right femoral artery for his chronic right toe wound to heal. Code(s): I77.9 - DISORDER OF ARTERIES AND ARTERIOLES, UNSPECIFIED (6) Hypertension Current Visit: Yes Status: Acute Assessment & Plan: Continue metoprolol and add amlodipine 5 mg daily. Code(s): I10 - ESSENTIAL (PRIMARY) HYPERTENSION
[2018-07-09] MEDS: NovoLOG Insulin SQ SCH ×2 (12:00→17:26)
[2018-07-09] MEDS: Lantus Insulin SQ SCH (21:11)
--- NOTE | 2018-07-09 21:36 | XRAY ---
Indication: 2nd toe ulcer. Comparison: None 2 views of the right 2nd toe demonstrates mild osteopenia. No other bony, articular, or soft tissue abnormalities.
[2018-07-09] MEDS: PATIENT OWN MEDICATION PO SCH (21:44)
[2018-07-10] MEDS: TYLENOL 325 MG PO PRN ×3 (03:54→21:50)
--- NOTE | 2018-07-10 08:10 | PCM.NOTE ---
Date and Time: 07/10/18 0806 Subjective Assessment: patient remains stable, no new complaints at this time. he is tolerating ambulation and speech has improved since admission. Objective Exam General Appearance: no apparent distress, alert Respiratory Exam: normal breath sounds, lungs clear, No respiratory distress Cardiovascular Exam: regular rate/rhythm, normal heart sounds Gastrointestinal/Abdomen Exam: soft, No tenderness, No mass OBJECTIVE DATA Vital Signs: Vital Signs - 24 hr Temp Pulse Resp BP Pulse Ox 07/10/18 07:07 97.8 F 71 20 152/64 96 07/10/18 05:00 98.3 F 68 16 153/67 98 07/09/18 23:26 98.2 F 70 16 152/67 100 07/09/18 21:00 97.9 F 67 20 138/60 100 07/09/18 17:00 97.8 F 76 18 143/65 100 07/09/18 13:00 97.5 F 69 18 140/63 99 Pain Assessment - Last Documented Pain Intensity 2 Pain Scale Used FLACC Intake and Output: Intake & Output 07/07/18 07/08/18 07/09/18 07/10/18 10:59 10:59 11:59 11:59 Intake Total 1060 Output Total Balance 1060 Weight 60.9 kg Lab Results: Accuchecks Date 07/09/18 Date 07/09/18 Time 16:30 Time 11:30 Accucheck Value: 194 Accucheck Value: 187 Radiology Exams: Radiology Procedures Category Date Time Status TOE(S) (MIN 2 VIEWS) Routine Exams 07/09/18 11:47 Completed Assessment/Plan (1) CVA (cerebral vascular accident) Current Visit: Yes Status: Acute Assessment & Plan: continue asa and plavix, rehab for PT/ST Code(s): I63.9 - CEREBRAL INFARCTION, UNSPECIFIED (2) Altered mental status, unspecified Current Visit: Yes Status: Acute Code(s): R41.82 - ALTERED MENTAL STATUS, UNSPECIFIED (3) Frequent falls Current Visit: Yes Status: Acute Code(s): R29.6 - REPEATED FALLS (4) 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 Code(s): I77.9 - DISORDER OF ARTERIES AND ARTERIOLES, UNSPECIFIED
[2018-07-10] MEDS: NovoLOG Insulin SQ SCH ×3 (08:35→16:30)
[2018-07-10] MEDS: Zocor 10MG PO SCH (09:17)
[2018-07-10] MEDS: Ranexa 500 MG PO SCH ×2 (09:17→21:50)
[2018-07-10] MEDS: NORVASC 5 MG PO SCH (09:17)
[2018-07-10] MEDS: PLAVIX 75 MG Tablet PO SCH (09:17)
[2018-07-10] MEDS: monoKET 20 MG PO SCH ×3 (09:17→21:50)
[2018-07-10] MEDS: ECOTRIN 81 MG PO SCH (09:17)
[2018-07-10] MEDS: Colace 100 MG PO SCH ×2 (09:17→21:50)
[2018-07-10] MEDS: Pepcid 20 MG PO SCH ×2 (09:17→21:49)
[2018-07-10] MEDS: SYNTHROID 75 MCG PO SCH (09:17)
[2018-07-10] MEDS: Levofloxacin 250MG Tablet PO SCH (09:17)
[2018-07-10] MEDS: Toprol Xl 50 MG PO SCH (09:17)
[2018-07-10] MEDS: FOLATE 1 MG PO SCH (09:17)
[2018-07-10] MEDS: Bactroban OINTMENT TOP SCH ×3 (09:18→21:50)
[2018-07-10] MEDS: PATIENT OWN MEDICATION PO SCH (21:49)
[2018-07-10] MEDS: Lantus Insulin SQ SCH (21:50)
--- NOTE | 2018-07-11 08:32 | PCM.NOTE ---
Date and Time: 07/11/18828 Subjective Assessment: patient states he is feeling well, still has some pain in his toe region from his ulceration. his speech is more fluid. he is unsteady and a significant fall risk. Objective Exam General Appearance: no apparent distress, alert Respiratory Exam: normal breath sounds, lungs clear, No respiratory distress Cardiovascular Exam: regular rate/rhythm, normal heart sounds Gastrointestinal/Abdomen Exam: soft, No tenderness, No mass Extremity Exam: normal inspection, normal range of motion OBJECTIVE DATA Vital Signs: Vital Signs - 24 hr Temp Pulse Resp BP Pulse Ox 07/11/18 07:15 97.8 F 74 20 118/68 96 07/11/18 04:00 98.4 F 75 16 142/65 99 07/11/18 00:00 98.5 F 78 16 149/63 98 07/10/18 20:00 97.3 F 71 18 151/65 100 07/10/18 16:07 97.6 F 67 20 137/63 99 07/10/18 11:02 97.2 F 78 20 147/78 95 07/10/18 10:36 97.8 F 71 20 152/64 96 Pain Assessment - Last Documented Pain Intensity [address] [facility] Intake and Output: Intake & Output 07/08/18 07/09/18 07/10/18 07/11/18 10:59 11:59 11:59 11:59 Intake Total 1480 1020 Output Total Balance 1480 1020 Weight 60.9 kg 61 kg Lab Results: Accuchecks Date 07/10/18 Date 07/10/18 Time 16:30 Time 11:30 Accucheck Value: 196 Accucheck Value: 163 Radiology Exams: Radiology Procedures Category Date Time Status TOE(S) (MIN 2 VIEWS) Routine Exams 07/09/18 11:47 Completed Assessment/Plan (1) CVA (cerebral vascular accident) Current Visit: Yes Status: Acute Assessment & Plan: continue aspirin and plavix, patient unable to live on his own at this time and desperately needs a rehab stay for speech therapy, physical therapy and improve strength and functional status. Code(s): I63.9 - CEREBRAL INFARCTION, UNSPECIFIED (2) Altered mental status, unspecified Current Visit: Yes Status: Acute Assessment & Plan: patient with some mild underlying dementia, EEG confirms diffuse slowing but nothing focal consistent with encephalopathy. patient is unsafe to live on his own at this time and unable to care for himself in my opinion. Code(s): R41.82 - ALTERED MENTAL STATUS, UNSPECIFIED (3) Frequent falls Current Visit: Yes Status: Acute Code(s): R29.6 - REPEATED FALLS (4) Diabetic foot ulcer associated with secondary diabetes mellitus Current Visit: Yes Status: Acute Qualifiers: Diabetic foot ulcer location: toe Laterality: right Code(s): E08.621 - DIABETES MELLITUS DUE TO UNDERLYING CONDITION W FOOT ULCER; L97.509 - NON-PRESSURE CHRONIC ULCER OTH PRT UNSP FOOT W UNSP SEVERITY (5) Peripheral arterial occlusive disease Current Visit: Yes Status: Acute Assessment & Plan: will f/u with Dr Jaskaran Hannon, continue local wound care to toe at this time. Code(s): I77.9 - DISORDER OF ARTERIES AND ARTERIOLES, UNSPECIFIED
[2018-07-11] MEDS: NovoLOG Insulin SQ SCH ×3 (08:34→17:08)
[2018-07-11] MEDS: PLAVIX 75 MG Tablet PO SCH (09:25)
[2018-07-11] MEDS: SYNTHROID 75 MCG PO SCH (09:25)
[2018-07-11] MEDS: FOLATE 1 MG PO SCH (09:25)
[2018-07-11] MEDS: monoKET 20 MG PO SCH ×3 (09:25→20:42)
[2018-07-11] MEDS: Toprol Xl 50 MG PO SCH (09:25)
[2018-07-11] MEDS: Ranexa 500 MG PO SCH ×2 (09:25→20:42)
[2018-07-11] MEDS: Pepcid 20 MG PO SCH ×2 (09:25→20:42)
[2018-07-11] MEDS: Zocor 10MG PO SCH (09:26)
[2018-07-11] MEDS: ECOTRIN 81 MG PO SCH (09:26)
[2018-07-11] MEDS: Bactroban OINTMENT TOP SCH ×3 (09:26→20:41)
[2018-07-11] MEDS: Levofloxacin 250MG Tablet PO SCH (09:26)
[2018-07-11] MEDS: Colace 100 MG PO SCH ×2 (09:26→20:43)
[2018-07-11] MEDS: NORVASC 5 MG PO SCH (09:26)
[2018-07-11] MEDS: PATIENT OWN MEDICATION PO SCH (20:41)
[2018-07-11] MEDS: Lantus Insulin SQ SCH (20:43)
[2018-07-11] MEDS: TYLENOL 325 MG PO PRN (22:01)
[2018-07-12] MEDS: TYLENOL 325 MG PO PRN ×2 (04:01→10:04)
[2018-07-12 07:16] VITALS: BP 151/71; PULSE 75; O2SAT 96
[2018-07-12] MEDS: NovoLOG Insulin SQ SCH (07:47)
--- NOTE | 2018-07-12 09:40 | PCM.DS ---
Discharge Summary Date of Admission: 07/05/18 16:52 Admitting Physician: EVAN LAROSE Consults: Consults on Case 07/06/18 07:39 Consult Tele-Health [Tele-Health Consult] ROUTINE 07/09/18 11:07 Consult Cardiology ROUTINE Primary Care Provider: EVAN LAROSE Allergies Allergies No Known Drug Allergies Allergy (Verified 07/05/18 14:55) Hospital Summary - Hospital Course Hospital Course: patient was admitted with expressive aphasia, weakness and falls. he has improved during his stay and is eating well and tolerating therapy and more steady on his feet. was planning rehab stay but now family plans to have daughter move in with him and requesting discharge to home. he does have a nonhealing ulceration to right 2nd toe, arterial doppler by Dr Jaskaran Thompson shows stenosis on stent in femoral artery. wound is clean at this time, will need wound care and referral back to cardiology. - Vitals & Intake/Output Vital Signs: Vital Signs Temperature 97.8 F 07/12/18 07:14 Pulse Rate 75 07/12/18 07:14 Respiratory Rate 18 07/12/18 07:14 Blood Pressure 151/71 07/12/18 07:14 O2 Sat by Pulse Oximetry 96 07/12/18 07:14 Intake & Output: Intake & Output 07/09/18 07/10/18 07/11/18 07/12/18 11:59 11:59 11:59 11:59 Intake Total 1480 1020 2170 Output Total Balance 1480 1020 2170 Weight 60.9 kg 61 kg 61.2 kg - Lab Result Diagrams: 07/09/18 05:05 07/09/18 05:05 Lab Results-Last 24 Hrs: Accuchecks Date 07/12/18 Date 07/11/18 Date 07/11/18 Time 07:30 Time 17:35 Time 11:30 Accucheck Value: 104 Accucheck Value: 202 Accucheck Value: 139 Micro Results-Entire Visit: Accuchecks Date 07/12/18 Date 07/11/18 Date 07/11/18 Time 07:30 Time 17:35 Time 11:30 Accucheck Value: 104 Accucheck Value: 202 Accucheck Value: 139 - Procedures and Test Procedures and Tests throughout Hospitalization: Therapy Orders & Screens 07/06/18 18:36 PT Eval & Treat ( Order) ROUTINE Reason for Eval:: recent falls Diagnosis: CVA 07/07/18 06:00 EEG 41-60 Minutes (Normal) ONCE Comment: Reason For Exam: Diagnosis: CVA 07/07/18 09:25 Speech Therapy Eval & Treat [ Eval & Treat ( Order)] .as ordered Comment: Physician Instructions: Reason For Exam: cva, expressive aphasia Evaluate: Yes Treat: Yes Reason for Eval: expressive aphasia Diagnosis: CVA Discharge Exam General Appearance: no apparent distress, alert Skin Exam: normal color, warm, dry Respiratory Exam: normal breath sounds, lungs clear, No respiratory distress Cardiovascular Exam: regular rate/rhythm, normal heart sounds Gastrointestinal/Abdomen Exam: soft, No tenderness, No mass Extremity Exam: other (right 2nd toe ulceration, no redness or drainage) Final Diagnosis/Problem List - Final Discharge Diagnosis/Problem (1) CVA (cerebral vascular accident) Current Visit: Yes Status: Acute Assessment & Plan: improved, doing much better at this time. on aspirin and plavix (2) Altered mental status, unspecified Current Visit: Yes Status: Acute (3) Frequent falls Current Visit: Yes Status: Acute Assessment & Plan: refer for home health. patient is home bound, requires a walker to ambulate. he is unable to drive and has some underlying dementia. 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 Current Visit: Yes Status: Acute (5) Peripheral arterial occlusive disease Current Visit: Yes Status: Acute Assessment & Plan: needs to f/u with Dr Jaskaran Thompson - Discharge Disposition: Home, Self-Care Condition: Good Prescriptions: New Aspirin EC 81 mg [Ecotrin 81 mg] 81 mg PO DAILY tablet.ec Amlodipine Besylate 5 mg [Norvasc 5 mg] 5 mg PO QAM #30 tablet Continue Folic Acid 1 mg PO DAILY Metoprolol Succinate 50 mg [Toprol Xl 50 MG] 50 mg PO DAILY Levothyroxine Sodium 75 mcg PO DAILY Isosorbide Mononitrate 20 mg [monoKET 20 MG] 20 mg PO TID Rosuvastatin Calcium 5 mg PO DAILY Famotidine [Pepcid] 40 mg PO BID Mirtazapine 15 mg PO HS PRN PRN Reason: Insomnia Clopidogrel Bisulfate [Clopidogrel] 75 mg PO DAILY Ranolazine 500 MG [Ranexa 500 MG] 500 mg PO BID Insulin Detemir [Levemir] 10 units SQ HS Docusate Sodium 1 tab PO BID Calcium Carbonate [Tums] 200 mg PO UD PRN PRN Reason: Indigestion Naproxen Sodium 220 mg [Aleve 220 MG] 220 mg PO Q8H PRN PRN PRN Reason: Pain Cholecalciferol (Vitamin D3) [D3 Dots] 2,000 unit PO DAILY Diphenhydramine HCl 25 mg [Benadryl 25 mg Capsule] 50 mg PO HS PRN PRN Reason: Insomnia Iron,Carb/Vit C/Vit B12/Folic [Iron 100 Plus Tablet] 1 each PO DAILY Mupirocin Calcium [Mupirocin] 30 gm TP TID Melatonin 1 cap PO HS PRN PRN Reason: Insomnia Follow up with: JASKARAN THOMPSON MD [CONSULTING PHYSICIAN] - 1 Week
[2018-07-12] MEDS: monoKET 20 MG PO SCH (10:04)
[2018-07-12] MEDS: Pepcid 20 MG PO SCH (10:04)
[2018-07-12] MEDS: SYNTHROID 75 MCG PO SCH (10:04)
[2018-07-12] MEDS: Ranexa 500 MG PO SCH (10:04)
[2018-07-12] MEDS: NORVASC 5 MG PO SCH (10:04)
[2018-07-12] MEDS: PLAVIX 75 MG Tablet PO SCH (10:05)
[2018-07-12] MEDS: Toprol Xl 50 MG PO SCH (10:05)
[2018-07-12] MEDS: FOLATE 1 MG PO SCH (10:05)
[2018-07-12] MEDS: ECOTRIN 81 MG PO SCH (10:05)
[2018-07-12] MEDS: Levofloxacin 250MG Tablet PO SCH (10:05)
[2018-07-12] MEDS: Zocor 10MG PO SCH (10:05)
[2018-07-12] MEDS: Colace 100 MG PO SCH (10:05)
[2018-07-12] MEDS: Bactroban OINTMENT TOP SCH (10:07)
== END 2018-07-12 11:50 | disposition home or self-care (01) ==
LOC: ED 14:39 → UNDOADMOB 16:52 → MED SURG 16:52 → OBSVTOIN 07-06 07:38 → INTOOBSV 07-06 07:38
PROVIDERS: ADMIT Family Medicine; ATTEND Family Medicine
DX: I63.9 Cerebral infarction, unspecified (principal); R47.01 Aphasia; R41.82 Altered mental status, unspecified; T82.856A Stenosis of peripheral vascular stent, initial encounter; E11.621 Type 2 diabetes mellitus with foot ulcer; R53.1 Weakness; E03.9 Hypothyroidism, unspecified; N18.3 Chronic kidney disease, stage 3 (moderate); D63.1 Anemia in chronic kidney disease; L03.031 Cellulitis of right toe; I10 Essential (primary) hypertension; Z91.81 History of falling; I77.9 Disorder of arteries and arterioles, unspecified; Z79.01 Long term (current) use of anticoagulants; Z79.4 Long term (current) use of insulin; Z79.899 Other long term (current) drug therapy; I25.2 Old myocardial infarction
CPT/HCPCS: 36415; 70450; 70551; 71045; 73660; 80048; 80053; 80061; 82607; 82728; 82746; 82962; 83036; 83540; 83550; 83721; 83735; 84443; 85025; 85610; 92522; 93041; 93268; 93880; 95812; 96360; 97110; 97161; 97530; 99285; G0378; Q3014; J0360; A9270-GY

== ENCOUNTER 2019-04-12 10:13 | Emergency (ER) | payer MEDICARE ==
--- NOTE | 2019-04-12 10:57 | ERPHSYRPT ---
- History of Present Illness Time Seen by Provider: 04/12/19 10:14 Source: patient Patient Subjective Stated Complaint: pt to ER with complaints of R Leg swelling. pt had procedure done tuesday ( angiograph ) in [place]. pt home health nurse noticed swelling of calf yesterday and today was worse. Triage Nursing Assessment: pt to ER with complaints of R leg swelling since yesterday. procedure done tuesday. Physician History: Patient is here with right leg swelling. Patient recently had angiograph with stenting 2 days ago in the right lower leg. This was done by Dr. Nevarez at [facility]. This was done there because no other physicians would perform the procedure. Over the past 24 hours, he has developed right calf swelling and tenderness. He was seen by his PCP and sent into the emergency department. Right lower leg swelling/pain radiates into right upper leg Duration : 2 days timing: after procedure other signs/symptoms: they have seen their PCP by not contacted Dr. Nevarez. Allergies/Adverse Reactions: No Known Drug Allergies Allergy (Verified 04/12/19 10:43) Home Medications: Calcium Carbonate [Tums] 200 mg PO UD PRN 07/05/18 [History] Cholecalciferol (Vitamin D3) [D3 Dots] 2,000 unit PO DAILY 07/05/18 [History] Clopidogrel Bisulfate [Clopidogrel] 75 mg PO DAILY 07/05/18 [History] Diphenhydramine HCl 25 mg [Benadryl 25 mg Capsule] 50 mg PO HS PRN [History] Docusate Sodium 1 tab PO BID 07/05/18 [History] Famotidine [Pepcid] 40 mg PO BID 07/05/18 [History] Folic Acid 1 mg PO DAILY 07/05/18 [History] Insulin Detemir [Levemir] 10 units SQ HS 07/05/18 [History] Iron,Carb/Vit C/Vit B12/Folic [Iron 100 Plus Tablet] 1 each PO DAILY 07/05/18 [ History] Isosorbide Mononitrate 20 mg [monoKET 20 MG] 20 mg PO TID 07/05/18 [History] Levothyroxine Sodium 75 mcg PO DAILY 07/05/18 [History] Melatonin 1 cap PO HS PRN 07/05/18 [History] Metoprolol Succinate 50 mg [Toprol Xl 50 MG] 50 mg PO DAILY 07/05/18 [ History] Mirtazapine 15 mg PO HS PRN 07/05/18 [History] Mupirocin Calcium [Mupirocin] 30 gm TP TID 07/05/18 [History] Naproxen Sodium 220 mg [Aleve 220 MG] 220 mg PO Q8H PRN PRN 07/05/18 [ History] Ranolazine 500 MG [Ranexa 500 MG] 500 mg PO BID 07/05/18 [History] Rosuvastatin Calcium 5 mg PO DAILY 07/05/18 [History] Allopurinol 100 mg [Zyloprim 100 mg] 100 mg PO DAILY 04/12/19 [History] Hx Tetanus, Diphtheria Vaccination/Date Given: Yes Hx Influenza Vaccination/Date Given: Yes Hx Pneumococcal Vaccination/Date Given: Yes Immunizations Up to Date: Yes - Review of Systems Constitutional: No Fever, No Chills Eyes: No Symptoms Ears, Nose, & Throat: No Symptoms Respiratory: No Cough, No Dyspnea Cardiac: No Chest Pain, No Edema, No Syncope Abdominal/Gastrointestinal: No Abdominal Pain, No Nausea, No Vomiting, No Diarrhea Genitourinary Symptoms: No Dysuria Musculoskeletal: Other (right leg swelling ), No Back Pain, No Neck Pain Skin: No Rash Neurological: No Dizziness, No Focal Weakness, No Sensory Changes Psychological: No Symptoms Endocrine: No Symptoms All Other Systems: Reviewed and Negative - Past Medical History Pertinent Past Medical History: Yes Neurological History: Peripheral Neuropathy ENT History: Cataracts Cardiac History: High Cholesterol, Myocardial Infarction ([place]) Respiratory History: No Pertinent History Endocrine Medical History: Diabetes Type II, Hypothyroidism GI Medical History: Gallbladder Disease History: Renal Disease Other Medical History: chronic anemia - Past Surgical History Past Surgical History: Yes Cardiac: CABG, Cardiac Stent, Valve Replacement Gastrointestinal: Cholecystectomy Musculoskeletal: Orthopedic Surgery - Social History Smoking Status: Never smoker Exposure to second hand smoke: No Alcohol Use: None Drug Use: none Patient Lives Alone: No Significant Family History: no pertinent family hx - Nursing Vital Signs Nursing Vital Signs: Initial Vital Signs Temperature 98 F 04/12/19 10:32 Pulse Rate 78 04/12/19 10:32 Respiratory Rate 12 04/12/19 10:32 Blood Pressure 145/65 04/12/19 10:32 O2 Sat by Pulse Oximetry 100 04/12/19 10:32 Pain Scale Pain Intensity 4 - Physical Exam General Appearance: alert Eyes, Ears, Nose, Throat Exam: moist mucous membranes Neck Exam: non-tender, supple Cardiovascular/Respiratory Exam: chest non-tender, normal breath sounds, regular rate/rhythm, no respiratory distress Gastrointestinal/Abdominal Exam: non-tender, guarding Back Exam: normal inspection, No vertebral tenderness Neuro/Tendon Exam: normal sensation, normal motor functions Mental Status Exam: alert, oriented x 3, cooperative Skin Exam: normal color, warm, dry SpO2: 100 Comments: right leg is minimally tender with intact pulses. No sends of skin changes or obvious ischemia. Very mild swelling of right lower calf, full range of motion without pain. Ordered Tests: Active Orders 24 hr Category Date Time Status IV Insertion STAT Care 04/12/19 12:00 Active ARTERIAL UNILAT/LTD LOWER EXT [US] Stat Exams 04/12/19 14:09 Taken CTA LOWER EXTREMITY W CONTRAST [CT] Stat Exams 04/12/19 12:01 Ordered CBC W DIFF Stat Lab 04/12/19 12:17 Completed CMP Stat Lab 04/12/19 12:17 Completed Lab/Rad Data: Laboratory Result Diagrams 04/12/19 12:17 04/12/19 12:17 Laboratory Results 04/12/19 04/12/19 Range/Units 12:17 12:17 WBC 5.6 (4.0-10.5) K/mm3 RBC 2.73 L (4.1-5.6) M/mm3 Hgb 8.9 L (12.5-18.0) gm/dl Hct 27.1 L (42-50) % MCV 99.3 (78-100) fl MCH 32.6 H (26-32) pg MCHC 32.8 (32-36) g/dl RDW 14.0 (11.5-14.0) % Plt Count 98 L (150-450) K/mm3 MPV 8.6 (6-9.5) fl Gran % 58.9 (36.0-66.0) % Eos # (Auto) 0.10 (0-0.5) Absolute Lymphs (auto) 1.70 (1.0-4.6) Absolute Monos (auto) 0.47 (0.0-1.3) Lymphocytes % 30.4 (24.0-44.0) % Monocytes % 8.4 (0.0-12.0) % Eosinophils % 1.8 (0.00-5.0) % Basophils % 0.5 (0.0-0.4) % Absolute Granulocytes 3.30 (1.4-6.9) Basophils # 0.03 (0-0.4) Sodium 142 (137-145) mmol/L Potassium 5.4 H (3.5-5.1) mmol/L Chloride 110 H (98-107) mmol/L Carbon Dioxide 24 (22-30) mmol/L Anion Gap 13.5 (5-15) MEQ/L BUN 30 H (9-20) mg/dL Creatinine 1.57 H (0.66-1.25) mg/dL Estimated GFR 45.2 ML/MIN Glucose 188 H (74-106) mg/dL Calcium 8.9 (8.4-10.2) mg/dL Total Bilirubin 0.50 (0.2-1.3) mg/dL AST 20 (17-59) U/L ALT 17 (0-50) U/L Alkaline Phosphatase 64 (38-126) U/L Serum Total Protein 6.7 (6.3-8.2) g/dL Albumin 3.8 (3.5-5.0) g/dL Slides for Path Review YES - Progress Progress Note: 04/12/19 11:04 We will attempt to contact performing physician. 04/12/19 14:15 We did get in contact with Dr. Nevarez. He recommend ultrasound arterial/venous of the right leg. This returned negative for DVT or arterial clot. Patient feeling improved. There is no change and leg reexam remained stable. We will discharge patient home at this point in time. They will return for new or changing symptoms. They will see Dr. Nevarez in clinic for follow up. - Departure Departure Disposition: Home Clinical Impression: Right leg pain Condition: Stable Critical Care Time: No Referrals: EVAN LAROSE MD [Primary Care Provider] - (Reexam in 24-48 hours )
[2019-04-12 12:22] LABS: BASOPHIL % 0.5 % (0.0-0.4); Basophil (Absolute #) 0.03 (0-0.4); Eosinophil % 1.8 % (0.00-5.0); Hematocrit 27.1 % (42-50); Hemoglobin 8.9 gm/dl (12.5-18.0); Lymphocytes % 30.4 % (24.0-44.0); Mean Cell Volume 99.3 fl (78-100); Mean Corpuscular Hemoglobin 32.6 pg (26-32); Mean Corpuscular Hgb Concent. 32.8 g/dl (32-36); Mean Platelet Volume 8.6 fl (6-9.5); Monocyte (Absolute #) 0.47 (0.0-1.3); Monocytes % 8.4 % (0.0-12.0); Neutrophil % 58.9 % (36.0-66.0); Platelet Count 98 K/mm3 (150-450); Red Blood Count 2.73 M/mm3 (4.1-5.6); White Blood Count 5.6 K/mm3 (4.0-10.5)
[2019-04-12 12:33] LABS: ALBUMIN 3.8 g/dL (3.5-5.0); ANION GAP 13.5 MEQ/L (5-15); BILIRUBIN,TOTAL 0.5 mg/dL (0.2-1.3); Calcium 8.9 mg/dL (8.4-10.2); Creatinine 1 1.57 mg/dL (0.66-1.25); Potassium 5.4 mmol/L (3.5-5.1); Total Protein 6.7 g/dL (6.3-8.2)
[2019-04-12 13:05] VITALS: BP 143/84; PULSE 72
[2019-04-12 13:09] LABS: Slide Review 1 YES
[2019-04-12 14:17] VITALS: O2SAT 100
--- NOTE | 2019-04-12 14:34 | XRAY ---
Indication: Swelling. Status post stent placement April 10, 2019. Two-dimensional sonogram and color Doppler imaging of the major arteries of the right leg was performed. Comparison: July 04, 2018. New patent stent graft in the common femoral and throughout the superficial femoral artery with monophasic arterial waveforms. No free fluid or evidence for complications. Popliteal artery demonstrates mild scattered arteriosclerotic disease with monophasic arterial waveforms. There is now faint color flow in the posterior tibial and dorsal pedal arteries with attenuated monophasic arterial waveforms. Impression: Status post endovascular stent placement common femoral and superficial femoral arteries appearing patent. No complications. 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
== END 2019-04-12 14:34 | disposition home or self-care (01) ==
LOC: ED 10:13
DX: M79.604 Pain in right leg (principal); M79.89 Other specified soft tissue disorders; Z98.890 Other specified postprocedural states; E03.9 Hypothyroidism, unspecified; G62.9 Polyneuropathy, unspecified; N28.9 Disorder of kidney and ureter, unspecified; E11.9 Type 2 diabetes mellitus without complications; E78.00 Pure hypercholesterolemia, unspecified; Z79.899 Other long term (current) drug therapy; I25.2 Old myocardial infarction
CPT/HCPCS: 36000; 36415; 80053; 85025; 93926; 99284

== ENCOUNTER 2019-06-05 14:13 | Observation (INO) | payer MEDICARE ==
[2019-06-05] MEDS ORDERED: NovoLIN R SQ PRN (15:15)
[2019-06-05] MEDS ORDERED: MELATONIN PO PRN (15:25)
[2019-06-05] MEDS ORDERED: NON-FORMULARY ITEM (Hydrocodone/Apap 5-325 Tab^^^ 1 TAB) PO PRN (15:25)
[2019-06-05] MEDS ORDERED: REMERON 30 MG PO PRN (15:42)
[2019-06-05] MEDS: NORCO 5/325 MG PO PRN ×2 (15:58→22:13)
[2019-06-05] MEDS ORDERED: MEDICATION INTERVENTION PO SCH ×2 (16:00)
[2019-06-05] MEDS: Sodium Chloride 0.9% 1000 ML 1,000 ML IV SCH (16:06)
[2019-06-05 16:18] LABS: Absolute Neutrophil Ct (ANC) 3.72 (1.4-6.9); BASOPHIL % 0.3 % (0.0-0.4); Basophil (Absolute #) 0.02 (0-0.4); Eosinophil % 1.6 % (0.00-5.0); Hematocrit 33.5 % (42-50); Hemoglobin 11.3 gm/dl (12.5-18.0); Lymphocyte (Absolute #) 2.13 (1.0-4.6); Lymphocytes % 33.6 % (24.0-44.0); Mean Cell Volume 94.6 fl (78-100); Mean Corpuscular Hemoglobin 31.9 pg (26-32); Mean Corpuscular Hgb Concent. 33.7 g/dl (32-36); Mean Platelet Volume 8.8 fl (7.5-11.0); Monocyte (Absolute #) 0.36 (0.0-1.3); Monocytes % 5.7 % (0.0-12.0); Neutrophil % 58.8 % (36.0-66.0); Platelet Count 119 K/mm3 (150-450); Red Blood Count 3.54 M/mm3 (4.1-5.6); Red Cell Distribution Width 13.5 % (11.5-14.0); White Blood Count 6.3 K/mm3 (4.0-10.5)
--- NOTE | 2019-06-05 16:19 | XRAY ---
Indication: CVA. 2-dimensional sonogram and color Doppler imaging of the carotid arteries of the neck performed. Comparison: July 07, 2018. Examination of the right carotid circulation continues to demonstrate tortuous common carotid artery. Stable mild heterogeneous plaquing at the level of the bulb extending into the proximal internal and external carotid arteries. PSV of the CCA is 44 cm/s. PSV of the ICA is 76 cm/s. ICA/CCA ratio is 1.7. Normal antegrade vertebral artery flow. Examination of the left carotid circulation again demonstrates minimal calcified plaquing throughout the common carotid artery. At the level of the bulb, there is again mild heterogeneous plaquing extending into the origin of the internal and external carotid arteries. PSV of the CCA is 64 cm/s. PSV of the ICA is 71 cm/s. ICA/CCA ratio is 1.1. Normal antegrade vertebral artery flow. Impression: Again minimal to mild scattered arteriosclerotic plaquing bilaterally. Velocity measurements and ratios are negative for hemodynamically significant flow-limiting stenosis. CTA carotid arteries of the neck may yield further information if there remains further clinical concern.
[2019-06-05 16:22] LABS: Appearance CLEAR (CLEAR); Bilirubin NEGATIVE (NEGATIVE); Blood NEGATIVE Ery/ul (0-5); Glucose NEGATIVE (NEGATIVE); Hyaline Casts 0-2 /LPF (0-2); Ketones NEGATIVE (NEGATIVE); Leukocyte Esterase NEGATIVE (NEGATIVE); Nitrite NEGATIVE (NEGATIVE); Protein,Urine Dip NEGATIVE (Negative); Specific Gravity 1.011 (1.005-1.025); Urobilinogen NEGATIVE mg/dL (0-1)
--- NOTE | 2019-06-05 16:46 | XRAY ---
Indication: CVA. Sagittal, coronal, and axial MRI brain was performed using T1, T2, FLAIR, diffusion, and ADC sequences. Comparison: July 06, 2018. Stable age-appropriate global atrophy and mild periventricular degenerative micro-ischemia bilaterally. Again no acute intracranial hemorrhage, abnormal extra-axial fluid collection, or mass effect. Diffusion images are negative for restricted signal. Fourth ventricle is midline. 7/8 cranial nerve complex bilaterally symmetric. Normal flow void signal within the major intracerebral circulation. Normal appearing craniocervical junction and sella turcica. Floor of the left maxillary sinus demonstrates stable 1 cm polyp/retention cyst. Remaining paranasal sinuses are clear. Impression: 1. Stable atrophy and degenerative micro-ischemia within normal limits for patient's age. 2. No new or acute intracranial abnormalities or evidence for evolving large vessel territorial stroke. 3. Again incidental left maxillary sinus polyp/retention cyst.
[2019-06-05] MEDS ORDERED: Lasix 40 MG PO SCH (17:00)
[2019-06-05 17:10] LABS: ALBUMIN 4.4 g/dL (3.5-5.0); ANION GAP 17.2 MEQ/L (5-15); BILIRUBIN,TOTAL 0.6 mg/dL (0.2-1.3); Calcium 9.9 mg/dL (8.4-10.2); Creatinine 1 2.05 mg/dL (0.66-1.25); Potassium 5.1 mmol/L (3.5-5.1); TSH, 3RD Generation 2.63 mIU/L (0.47-4.68); Total Protein 7.4 g/dL (6.3-8.2)
[2019-06-05] MEDS ORDERED: Sodium Chloride 0.9% 500 ML 500 ML IV ONE (17:45)
[2019-06-05] MEDS ORDERED: NON-FORMULARY ITEM (Famotidine [Pepcid] 40 MG) PO SCH (22:00)
[2019-06-05] MEDS ORDERED: INSULIN DETEMIR 15 UNIT SQ SCH (22:00)
[2019-06-05] MEDS ORDERED: NON-FORMULARY ITEM (Iron [Iron] 65 MG) PO SCH (22:00)
[2019-06-05] MEDS ORDERED: FEOSOL 325 MG PO SCH (22:00)
[2019-06-05] MEDS ORDERED: Lantus Insulin SQ SCH (22:00)
[2019-06-05] MEDS ORDERED: monoKET 20 MG PO SCH (22:00)
[2019-06-05] MEDS: Pepcid 20 MG PO SCH (22:13)
[2019-06-05] MEDS: Ranexa 500 MG PO SCH (22:14)
[2019-06-05] MEDS: Colace 100 MG PO SCH (22:15)
[2019-06-06] MEDS: Sodium Chloride 0.9% 1000 ML 1,000 ML IV SCH (00:09)
[2019-06-06 04:55] LABS: ANION GAP 11.5 MEQ/L (5-15); Calcium 8.9 mg/dL (8.4-10.2); Creatinine 1 2.02 mg/dL (0.66-1.25); Potassium 5.2 mmol/L (3.5-5.1)
[2019-06-06] MEDS ORDERED: Sodium Chloride 0.9% 1000 ML 1,000 ML IV STA (08:39)
[2019-06-06] MEDS: Colace 100 MG PO SCH (09:10)
[2019-06-06] MEDS: Ranexa 500 MG PO SCH (09:10)
[2019-06-06] MEDS: Pepcid 20 MG PO SCH (09:10)
[2019-06-06] MEDS ORDERED: SYNTHROID 75 MCG PO SCH (10:00)
[2019-06-06] MEDS ORDERED: ZYLOPRIM 100 MG PO SCH (10:00)
[2019-06-06] MEDS ORDERED: NORVASC 5 MG PO SCH (10:00)
[2019-06-06] MEDS ORDERED: Ecotrin 325 MG PO SCH (10:00)
[2019-06-06] MEDS ORDERED: Vitamin B-12 500 MCG PO SCH (10:00)
[2019-06-06] MEDS ORDERED: Zocor 10MG PO SCH (10:00)
[2019-06-06] MEDS ORDERED: PLAVIX 75 MG Tablet PO SCH (10:00)
[2019-06-06] MEDS ORDERED: Vitamin C 500 MG PO SCH (10:00)
[2019-06-06] MEDS ORDERED: NON-FORMULARY ITEM (Cyanocobalamin (Vitamin B-12) [Vitamin B-12] 1,000 MCG) PO SCH (10:00)
[2019-06-06] MEDS ORDERED: FOLATE 1 MG PO SCH (10:00)
[2019-06-06] MEDS ORDERED: Toprol Xl 50 MG PO SCH (10:00)
[2019-06-06] MEDS ORDERED: CHOLECALCIFEROL 25 MCG PO SCH (10:00)
[2019-06-06] MEDS ORDERED: NON-FORMULARY ITEM (Folic Acid [Folic Acid] 0.8 MG) PO SCH (10:00)
--- NOTE | 2019-06-06 11:42 | PCM.SSS ---
History of Present Illness - Chief Complaint Chief Complaint: Slowed speech, possible right side weakness Date: 06/06/19 History of Present Illness: is a 83 year old male, presented to office yesterday, in general did not feel well, had vomited X2 which is not unusual for him. Pt. family thought he may be a little more weak on right side than usual, and having trouble finding his words. - Review of Systems Constitutional: No Fever, No Chills Eyes: No Symptoms Ears, Nose, & Throat: No Symptoms Respiratory: No Cough, No Short Of Breath Cardiac: No Chest Pain, No Edema, No Syncope Abdominal/Gastrointestinal: Vomiting, No Abdominal Pain, No Nausea, No Diarrhea , No Constipation Genitourinary Symptoms: No Dysuria Musculoskeletal: No Back Pain, No Neck Pain Skin: No Rash Neurological: Speech Changes, No Dizziness, No Gait Changes, No Headache, No Parasthesia, No Vertigo Psychological: No Symptoms Endocrine: No Symptoms Hematologic/Lymphatic: No Symptoms Medications & Allergies Home Medications: Home Medication List Clopidogrel Bisulfate [Clopidogrel] 75 mg PO DAILY 07/05/18 [History Confirmed 06/05/19] Famotidine [Pepcid] 40 mg PO BID 07/05/18 [History Confirmed 06/05/19] Isosorbide Mononitrate 20 mg [monoKET 20 MG] 20 mg PO HS 07/05/18 [History Confirmed 06/05/19] Levothyroxine Sodium 75 mcg PO DAILY 07/05/18 [History Confirmed 06/05/19] Melatonin 1 cap PO HS PRN 07/05/18 [History Confirmed 06/05/19] Metoprolol Succinate 50 mg [Toprol Xl 50 MG] 50 mg PO DAILY 07/05/18 [ History Confirmed 06/05/19] Mirtazapine 15 mg PO HS PRN 07/05/18 [History Confirmed 06/05/19] Ranolazine 500 MG [Ranexa 500 MG] 500 mg PO BID 07/05/18 [History Confirmed 06/05/19] Rosuvastatin Calcium 5 mg PO DAILY 07/05/18 [History Confirmed 06/05/19] Amlodipine Besylate 5 mg [Norvasc 5 mg] 5 mg PO QAM #30 tablet 07/12/18 [ Rx Confirmed 06/05/19] Allopurinol 100 mg [Zyloprim 100 mg] 100 mg PO DAILY 04/12/19 [History Confirmed 06/05/19] Ascorbic Acid 500 mg [Vitamin C 500 MG] 500 mg PO DAILY 06/05/19 [History Confirmed 06/05/19] Aspirin EC 325 mg [Ecotrin 325 MG] 325 mg PO DAILY 06/05/19 [History Confirmed 06/05/19] Cholecalciferol (Vitamin D3) [Vitamin D3] 25 mcg PO DAILY 06/05/19 [History Confirmed 06/05/19] Cyanocobalamin (Vitamin B-12) [Vitamin B-12] 1,000 mcg PO DAILY 06/05/19 [ History Confirmed 06/05/19] Docusate Sodium 100 mg [Colace 100 MG] 100 mg PO BID 06/05/19 [History Confirmed 06/05/19] Folic Acid 0.8 mg PO DAILY 06/05/19 [History Confirmed 06/05/19] Furosemide 40 mg [Lasix 40 MG] 40 mg PO BID 06/05/19 [History Confirmed ] Hydrocodone/APAP 5-325 Tab^^^ [Scandia 5-325 Tablet^^^] 1 tab PO Q6HPRN PRN MDD 6 06/05/19 [History Confirmed 06/05/19] Insulin Aspart [Novolog] 0 unit SQ UD 06/05/19 [History Confirmed 06/05/19] Insulin Detemir [Levemir] 15 unit SQ HS 06/05/19 [History Confirmed 06/05/19] Iron 65 mg PO HS 06/05/19 [History Confirmed 06/05/19] Allergies/Adverse Reactions: Allergies Allergy/AdvReac Type Severity Reaction Status Date / Time No Known Drug Allergies Allergy Verified 06/05/19 14:59 - Past Medical History Past Medical History: Yes Neurological History: Peripheral Neuropathy ENT History: Cataracts Cardiac History: Coronary Artery Disease, High Cholesterol, Hypertension, Myocardial Infarction ([place]) Respiratory History: No Pertinent History Endocrine Medical History: Diabetes Type II, Hypothyroidism Musculoskelatal History: Osteoporosis GI Medical History: Gallbladder Disease History: Renal Disease Pyscho-Social History: No Pertinent History Male Reproductive Disorders: No Pertinent History Comment: chronic anemia - Past Surgical History Past Surgical History: Yes Neuro Surgical History: No Pertinent History Cardiac History: CABG, Cardiac Stent, Valve Replacement Respiratory Surgery: No Pertinent History GI Surgical History: Cholecystectomy Genitourinary Surgical Hx: No Pertinent History Musculskeletal Surgical Hx: Orthopedic Surgery Male Surgical History: No Pertinent History Other Surgical History: STENTS PLACE IN BOTH LEGS - Social History Smoking Status: Never smoker Exposure to second hand smoke: No Alcohol: None Drug Use: none Significant Family History: no pertinent family hx - Physical Exam Vital Signs: Vital Signs - 24 hr Temp Pulse Resp BP Pulse Ox 06/06/19 08:00 97.9 F 66 16 125/58 98 06/06/19 07:58 17 06/06/19 04:15 97.9 F 68 17 128/60 100 06/06/19 00:00 18 06/05/19 23:58 98.0 F 58 L 18 109/56 100 06/05/19 20:00 16 06/05/19 19:40 97.7 F 60 16 148/63 100 06/05/19 16:00 97.6 F 68 20 151/65 99 06/05/19 14:30 98.0 F 71 20 172/7 100 General Appearance: no apparent distress Neurologic Exam: alert, cooperative (speech seemed pressured on initial examination, possible right leg weaker but pt. notes this is chronic for him) Eye Exam: PERRL/EOMI, eyes nml inspection Ears, Nose, Throat Exam: normal ENT inspection, TMs normal, pharynx normal, moist mucous membranes Neck Exam: normal inspection, non-tender, supple, full range of motion Respiratory Exam: normal breath sounds, lungs clear, No respiratory distress Cardiovascular Exam: regular rate/rhythm, normal heart sounds, normal peripheral pulses Gastrointestinal/Abdomen Exam: soft, normal bowel sounds, No tenderness, No mass Rectal Exam: deferred Back Exam: normal inspection, normal range of motion, No CVA tenderness, No vertebral tenderness Extremity Exam: normal inspection, normal range of motion, pelvis stable Skin Exam: normal color, warm, dry, No rash Wound Assessment: Skin/Wound Assessment Wound/Incision Assessment Start: 06/05/19 15: 14 Text: Status: Active Freq: Q6H Protocol: Document 06/06/19 07:58 GREGORY (Rec: 06/06/19 07:59 JM [id number]) Wound/Incision Assessment Left Medial Ankle Wound Assessment Shift Assessment Wound Type Pressure Ulcer Dressing Status Dry & Intact Drainage Amount None Primary Dressing mepilex Comment dressing cdi, picture in chart from admission 06/05/19 Buttock Wound Assessment Shift Assessment Wound Type reddened Comment buttocks reddened but blanchable Wound Photo Photo Taken Yes Date: 06/05/19 Results - Labs Lab/Micro Results: Accuchecks Date 06/06/19 Date 06/05/19 Time 07:56 Time 22:00 Accucheck Value: 78 Accucheck Value: 310 Accucheck Value: 153 Lab Results-Last 24 Hours 06/05/19 06/05/19 06/05/19 Range/Units 14:50 16:00 16:10 WBC (4.0-10.5) K/mm3 RBC (4.1-5.6) M/mm3 Hgb (12.5-18.0) gm/dl Hct (42-50) % MCV (78-100) fl MCH (26-32) pg MCHC (32-36) g/dl RDW (11.5-14.0) % Plt Count (150-450) K/mm3 MPV (7.5-11.0) fl Gran % (36.0-66.0) % Eos # (Auto) (0-0.5) Absolute Lymphs (auto) (1.0-4.6) Absolute Monos (auto) (0.0-1.3) Lymphocytes % (24.0-44.0) % Monocytes % (0.0-12.0) % Eosinophils % (0.00-5.0) % Basophils % (0.0-0.4) % Absolute Granulocytes (1.4-6.9) Basophils # (0-0.4) Sodium 141 (137-145) mmol/L Potassium 5.1 (3.5-5.1) mmol/L Chloride 101 (98-107) mmol/L Carbon Dioxide 28 (22-30) mmol/L Anion Gap 17.2 H (5-15) MEQ/L BUN 49 H (9-20) mg/dL Creatinine 2.05 H (0.66-1.25) mg/dL Estimated GFR 33.2 ML/MIN Glucose (74-106) mg/dL Hemoglobin A1c 6.12 H (4.5-6.0) % Calcium 9.9 (8.4-10.2) mg/dL Total Bilirubin 0.60 (0.2-1.3) mg/dL AST 26 (17-59) U/L ALT 27 (0-50) U/L Alkaline Phosphatase 82 (38-126) U/L Serum Total Protein 7.4 (6.3-8.2) g/dL Albumin 4.4 (3.5-5.0) g/dL TSH 3rd Generation 2.630 (0.47-4.68) mIU/L Urine Color YELLOW (YELLOW) Urine Appearance CLEAR (CLEAR) Urine pH 5.0 (5-6) Ur Specific Gilman 1.011 (1.005-1.025) Urine Protein NEGATIVE (Negative) Urine Ketones NEGATIVE (NEGATIVE) Urine Blood NEGATIVE (0-5) Vasu/ul Urine Nitrite NEGATIVE (NEGATIVE) Urine Bilirubin NEGATIVE (NEGATIVE) Urine Urobilinogen NEGATIVE (0-1) mg/dL Ur Leukocyte Esterase NEGATIVE (NEGATIVE) Urine WBC (Auto) NONE (0-5) /HPF Urine RBC (Auto) NONE (0-2) /HPF U Hyaline Cast (Auto) 0-2 (0-2) /LPF U Epithel Cells (Auto) NONE (FEW) /HPF Urine Bacteria (Auto) NONE (NEGATIVE) /HPF Urine Culture Reflexed NO (NO) Urine Glucose NEGATIVE (NEGATIVE) mg/dL 06/05/19 06/06/19 Range/Units 16:10 04:28 WBC 6.3 (4.0-10.5) K/mm3 RBC 3.54 L (4.1-5.6) M/mm3 Hgb 11.3 L (12.5-18.0) gm/dl Hct 33.5 L (42-50) % MCV 94.6 (78-100) fl MCH 31.9 (26-32) pg MCHC 33.7 (32-36) g/dl RDW 13.5 (11.5-14.0) % Plt Count 119 L (150-450) K/mm3 MPV 8.8 (7.5-11.0) fl Gran % 58.8 (36.0-66.0) % Eos # (Auto) 0.10 (0-0.5) Absolute Lymphs (auto) 2.13 (1.0-4.6) Absolute Monos (auto) 0.36 (0.0-1.3) Lymphocytes % 33.6 (24.0-44.0) % Monocytes % 5.7 (0.0-12.0) % Eosinophils % 1.6 (0.00-5.0) % Basophils % 0.3 (0.0-0.4) % Absolute Granulocytes 3.72 (1.4-6.9) Basophils # 0.02 (0-0.4) Sodium 139 (137-145) mmol/L Potassium 5.2 H (3.5-5.1) mmol/L Chloride 106 (98-107) mmol/L Carbon Dioxide 27 (22-30) mmol/L Anion Gap 11.5 (5-15) MEQ/L BUN 46 H (9-20) mg/dL Creatinine 2.02 H (0.66-1.25) mg/dL Estimated GFR 33.8 ML/MIN Glucose 81 (74-106) mg/dL Hemoglobin A1c (4.5-6.0) % Calcium 8.9 (8.4-10.2) mg/dL Total Bilirubin (0.2-1.3) mg/dL AST (17-59) U/L ALT (0-50) U/L Alkaline Phosphatase (38-126) U/L Serum Total Protein (6.3-8.2) g/dL Albumin (3.5-5.0) g/dL TSH 3rd Generation (0.47-4.68) mIU/L Urine Color (YELLOW) Urine Appearance (CLEAR) Urine pH (5-6) Ur Specific Gilman (1.005-1.025) Urine Protein (Negative) Urine Ketones (NEGATIVE) Urine Blood (0-5) Vasu/ul Urine Nitrite (NEGATIVE) Urine Bilirubin (NEGATIVE) Urine Urobilinogen (0-1) mg/dL Ur Leukocyte Esterase (NEGATIVE) Urine WBC (Auto) (0-5) /HPF Urine RBC (Auto) (0-2) /HPF U Hyaline Cast (Auto) (0-2) /LPF U Epithel Cells (Auto) (FEW) /HPF Urine Bacteria (Auto) (NEGATIVE) /HPF Urine Culture Reflexed (NO) Urine Glucose (NEGATIVE) mg/dL Accuchecks Date 06/06/19 Date 06/05/19 Time 07:56 Time 22:00 Accucheck Value: 78 Accucheck Value: 310 Accucheck Value: 153 - Radiology Impressions Radiology Exams & Impressions: Radiology Procedures Category Date Time Status CAROTID BILATERAL [US] Routine Exams 06/05/19 14:50 Completed ECHO W/2D AND DOPPLER [US] Routine Exams 06/05/19 15:00 Taken MRI BRAIN W/O CONTRAST [MRI] Routine Exams 06/05/19 14:50 Completed Assessment/Plan (1) Aphasia Current Visit: Yes Status: Acute Assessment & Plan: symptoms improved with hydration Code(s): R47.01 - APHASIA (2) CVA (cerebral vascular accident) Current Visit: Yes Status: Acute Assessment & Plan: MRI negative for acute CVA Code(s): I63.9 - CEREBRAL INFARCTION, UNSPECIFIED (3) Dehydration Current Visit: Yes Status: Acute Assessment & Plan: All symptoms improved with ivf, pt. ate a full breakfast speech was not pressured and words flowed easily. Pt. notes feeling better Code(s): E86.0 - DEHYDRATION Hospital Summary - Hospital Course Hospital Course: Pt. admitted with ivf and evaluation for possible CVA, studies returned all normal and no source of infection identified. Pt. felt better by the am and all cva studies returned as negative. Pt. feeling better and felt he was able to go home. - Vitals & Intake/Output Vital Signs: Vital Signs Temperature 97.9 F 06/06/19 08:00 Pulse Rate 66 06/06/19 08:00 Respiratory Rate 16 06/06/19 08:00 Blood Pressure 125/58 06/06/19 08:00 O2 Sat by Pulse Oximetry 98 06/06/19 08:00 Intake & Output: Intake & Output 06/03/19 06/04/19 06/05/19 06/06/19 11:59 11:59 11:59 11:59 Intake Total 2199 Balance 2199 Weight 53.4 kg - Lab Result Diagrams: 06/05/19 16:10 06/06/19 04:28 Lab Results-Last 24 Hrs: Accuchecks Date 06/06/19 Date 06/05/19 Time 07:56 Time 22:00 Accucheck Value: 78 Accucheck Value: 310 Accucheck Value: 153 Lab Results-Last 24 Hours 06/05/19 06/05/19 06/05/19 Range/Units 14:50 16:00 16:10 WBC (4.0-10.5) K/mm3 RBC (4.1-5.6) M/mm3 Hgb (12.5-18.0) gm/dl Hct (42-50) % MCV (78-100) fl MCH (26-32) pg MCHC (32-36) g/dl RDW (11.5-14.0) % Plt Count (150-450) K/mm3 MPV (7.5-11.0) fl Gran % (36.0-66.0) % Eos # (Auto) (0-0.5) Absolute Lymphs (auto) (1.0-4.6) Absolute Monos (auto) (0.0-1.3) Lymphocytes % (24.0-44.0) % Monocytes % (0.0-12.0) % Eosinophils % (0.00-5.0) % Basophils % (0.0-0.4) % Absolute Granulocytes (1.4-6.9) Basophils # (0-0.4) Sodium 141 (137-145) mmol/L Potassium 5.1 (3.5-5.1) mmol/L Chloride 101 (98-107) mmol/L Carbon Dioxide 28 (22-30) mmol/L Anion Gap 17.2 H (5-15) MEQ/L BUN 49 H (9-20) mg/dL Creatinine 2.05 H (0.66-1.25) mg/dL Estimated GFR 33.2 ML/MIN Glucose (74-106) mg/dL Hemoglobin A1c 6.12 H (4.5-6.0) % Calcium 9.9 (8.4-10.2) mg/dL Total Bilirubin 0.60 (0.2-1.3) mg/dL AST 26 (17-59) U/L ALT 27 (0-50) U/L Alkaline Phosphatase 82 (38-126) U/L Serum Total Protein 7.4 (6.3-8.2) g/dL Albumin 4.4 (3.5-5.0) g/dL TSH 3rd Generation 2.630 (0.47-4.68) mIU/L Urine Color YELLOW (YELLOW) Urine Appearance CLEAR (CLEAR) Urine pH 5.0 (5-6) Ur Specific Gilman 1.011 (1.005-1.025) Urine Protein NEGATIVE (Negative) Urine Ketones NEGATIVE (NEGATIVE) Urine Blood NEGATIVE (0-5) Vasu/ul Urine Nitrite NEGATIVE (NEGATIVE) Urine Bilirubin NEGATIVE (NEGATIVE) Urine Urobilinogen NEGATIVE (0-1) mg/dL Ur Leukocyte Esterase NEGATIVE (NEGATIVE) Urine WBC (Auto) NONE (0-5) /HPF Urine RBC (Auto) NONE (0-2) /HPF U Hyaline Cast (Auto) 0-2 (0-2) /LPF U Epithel Cells (Auto) NONE (FEW) /HPF Urine Bacteria (Auto) NONE (NEGATIVE) /HPF Urine Culture Reflexed NO (NO) Urine Glucose NEGATIVE (NEGATIVE) mg/dL 06/05/19 06/06/19 Range/Units 16:10 04:28 WBC 6.3 (4.0-10.5) K/mm3 RBC 3.54 L (4.1-5.6) M/mm3 Hgb 11.3 L (12.5-18.0) gm/dl Hct 33.5 L (42-50) % MCV 94.6 (78-100) fl MCH 31.9 (26-32) pg MCHC 33.7 (32-36) g/dl RDW 13.5 (11.5-14.0) % Plt Count 119 L (150-450) K/mm3 MPV 8.8 (7.5-11.0) fl Gran % 58.8 (36.0-66.0) % Eos # (Auto) 0.10 (0-0.5) Absolute Lymphs (auto) 2.13 (1.0-4.6) Absolute Monos (auto) 0.36 (0.0-1.3) Lymphocytes % 33.6 (24.0-44.0) % Monocytes % 5.7 (0.0-12.0) % Eosinophils % 1.6 (0.00-5.0) % Basophils % 0.3 (0.0-0.4) % Absolute Granulocytes 3.72 (1.4-6.9) Basophils # 0.02 (0-0.4) Sodium 139 (137-145) mmol/L Potassium 5.2 H (3.5-5.1) mmol/L Chloride 106 (98-107) mmol/L Carbon Dioxide 27 (22-30) mmol/L Anion Gap 11.5 (5-15) MEQ/L BUN 46 H (9-20) mg/dL Creatinine 2.02 H (0.66-1.25) mg/dL Estimated GFR 33.8 ML/MIN Glucose 81 (74-106) mg/dL Hemoglobin A1c (4.5-6.0) % Calcium 8.9 (8.4-10.2) mg/dL Total Bilirubin (0.2-1.3) mg/dL AST (17-59) U/L ALT (0-50) U/L Alkaline Phosphatase (38-126) U/L Serum Total Protein (6.3-8.2) g/dL Albumin (3.5-5.0) g/dL TSH 3rd Generation (0.47-4.68) mIU/L Urine Color (YELLOW) Urine Appearance (CLEAR) Urine pH (5-6) Ur Specific Gilman (1.005-1.025) Urine Protein (Negative) Urine Ketones (NEGATIVE) Urine Blood (0-5) Vasu/ul Urine Nitrite (NEGATIVE) Urine Bilirubin (NEGATIVE) Urine Urobilinogen (0-1) mg/dL Ur Leukocyte Esterase (NEGATIVE) Urine WBC (Auto) (0-5) /HPF Urine RBC (Auto) (0-2) /HPF U Hyaline Cast (Auto) (0-2) /LPF U Epithel Cells (Auto) (FEW) /HPF Urine Bacteria (Auto) (NEGATIVE) /HPF Urine Culture Reflexed (NO) Urine Glucose (NEGATIVE) mg/dL Micro Results-Entire Visit: Accuchecks Date 06/06/19 Date 06/05/19 Time 07:56 Time 22:00 Accucheck Value: 78 Accucheck Value: 310 Accucheck Value: 153 - Radiology Exams Ordered Rad Exams-Entire Visit: Radiology Procedures Category Date Time Status CAROTID BILATERAL [US] Routine Exams 06/05/19 14:50 Completed ECHO W/2D AND DOPPLER [US] Routine Exams 06/05/19 15:00 Taken MRI BRAIN W/O CONTRAST [MRI] Routine Exams 06/05/19 14:50 Completed - Procedures and Test Procedures and Tests throughout Hospitalization: Therapy Orders & Screens 06/05/19 14:50 PT Eval & Treat (MD Order) ROUTINE Reason for Eval:: OLD CVA for strengthening Diagnosis: cva ST Eval & Treat (MD Order) .as ordered Comment: Physician Instructions: Reason For Exam: Evaluate: Yes Treat: Yes Reason for Eval: strengthening Diagnosis: cva 06/05/19 15:14 OT Screen per Nursing Assess Comment: Protocol Order Physician Instructions: Greater than 3 points order OT Admission Screening Reason For Exam: Triggered on Admission Diagnosis: cva Open Wound/Cellutlitis/Pressure Ulcers: Yes Acute Fx/ORIF/Change in wt bearing status: No Severe MUSCULOSKELETAL pain: No ADL Dysfunction: No Acute CVA w/Hemiparesis/Hemiplegia: Yes Decreased Functional Mobility/Strength: Yes Sprain/Strain: No Acute Post-op Mobility Dysfunction: No Total Points: 11 PT Screen per Nursing Assess Comment: Protocol Order Physician Instructions: Greater than 3 points order PT Admission Screenin Reason For Exam: Triggered on Admission Diagnosis: cva Open Wound/Cellutlitis/Pressure Ulcers: Yes Acute Fx/ORIF/Change in wt bearing status: No Severe MUSCULOSKELETAL pain: No ADL Dysfunction: No Acute CVA w/Hemiparesis/Hemiplegia: Yes Decreased Functional Mobility/Strength: Yes Sprain/Strain: No Acute Post-op Mobility Dysfunction: No Total Points: 11 - Discharge Discharge Date: 06/06/19 Disposition: Home, Self-Care Condition: Stable Prescriptions: No Action Metoprolol Succinate 50 mg [Toprol Xl 50 MG] 50 mg PO DAILY Levothyroxine Sodium 75 mcg PO DAILY Isosorbide Mononitrate 20 mg [monoKET 20 MG] 20 mg PO HS Rosuvastatin Calcium 5 mg PO DAILY Famotidine [Pepcid] 40 mg PO BID Mirtazapine 15 mg PO HS PRN PRN Reason: Insomnia Clopidogrel Bisulfate [Clopidogrel] 75 mg PO DAILY Ranolazine 500 MG [Ranexa 500 MG] 500 mg PO BID Melatonin 1 cap PO HS PRN PRN Reason: Insomnia Amlodipine Besylate 5 mg [Norvasc 5 mg] 5 mg PO QAM #30 tablet Allopurinol 100 mg [Zyloprim 100 mg] 100 mg PO DAILY Cyanocobalamin (Vitamin B-12) [Vitamin B-12] 1,000 mcg PO DAILY Aspirin EC 325 mg [Ecotrin 325 MG] 325 mg PO DAILY Furosemide 40 mg [Lasix 40 MG] 40 mg PO BID Ascorbic Acid 500 mg [Vitamin C 500 MG] 500 mg PO DAILY Folic Acid 0.8 mg PO DAILY Iron 65 mg PO HS Insulin Aspart [Novolog] 0 unit SQ UD Insulin Detemir [Levemir] 15 unit SQ HS Docusate Sodium 100 mg [Colace 100 MG] 100 mg PO BID Cholecalciferol (Vitamin D3) [Vitamin D3] 25 mcg PO DAILY Hydrocodone/APAP 5-325 Tab^^^ [Scandia 5-325 Tablet^^^] 1 tab PO Q6HPRN PRN MDD 6 PRN Reason: Pain Additional Instructions: Hold amlodipine and follow-up for recheck and blood pressure check next week. Follow up with: EVAN LAROSE MD [Primary Care Provider] - 1 Week
[2019-06-06 13:39] VITALS: BP 133/63; PULSE 77; O2SAT 100
--- NOTE | 2019-06-07 08:04 | ECHO ---
DATE OF PROCEDURE: 06/05/2019 CLINICAL INFORMATION: CVA. The M-mode 2D, and Doppler echocardiogram including color flow Doppler shows the left ventricle is normal in size at 3.6 cm. No thrombus is noted in the left ventricle. The septal wall thickness is normal at 1.0 cm. The left ventricular posterior wall thickness is normal at 0.7 cm. The left ventricular systolic function is mildly decreased with an ejection fraction calculated at 41%. There is septal hypokinesis present. The mitral valve E to A inflow velocity ratio is decreased at 0.5 suggestive of impaired left ventricular relaxation. The right ventricle is not well visualized. The left atrium is 2.8 cm which is normal. The interatrial septum is intact. The right atrium is normal. The aortic valve opens well. There is no aortic regurgitation present. There is mitral valve leaflet thickening associated with moderate mitral regurgitation present. There is mild tricuspid regurgitation. The right ventricular systolic pressure is normal. The pulmonic valve is not well visualized. The aortic root is normal at 2.1 cm. There is no pericardial effusion present. IMPRESSION: 1) NO THROMBUS IS NOTED. 2) MILD IMPAIRMENT OF LEFT VENTRICULAR SYSTOLIC FUNCTION. 3) SEPTAL HYPOKINESIS PRESENT. 4) MODERATE MITRAL REGURGITATION. 5) MILD TRICUSPID REGURGITATION. 6) NORMAL RIGHT VENTRICULAR SYSTOLIC PRESSURE.
== END 2019-06-06 12:57 | disposition home or self-care (01) ==
LOC: MED SURG 14:17 → INTOOBSV 14:17
PROVIDERS: ADMIT Family Medicine; ATTEND Family Medicine
DX: R47.01 Aphasia (principal); E86.0 Dehydration; E11.9 Type 2 diabetes mellitus without complications; L89.529 Pressure ulcer of left ankle, unspecified stage; E78.00 Pure hypercholesterolemia, unspecified; R53.1 Weakness; D64.9 Anemia, unspecified; I10 Essential (primary) hypertension; I25.10 Atherosclerotic heart disease of native coronary artery without angina pectoris; I25.2 Old myocardial infarction; Z79.899 Other long term (current) drug therapy
CPT/HCPCS: 36415; 70551; 80048; 80053; 81001; 82962; 83036; 84443; 85025; 93306; 93880; G0378; A9270-GY

== ENCOUNTER 2019-06-29 11:56 | Observation (INO) | payer MEDICARE ==
--- NOTE | 2019-06-29 12:04 | ERPHSYRPT ---
- History of Present Illness Time Seen by Provider: 06/29/19 12:04 Source: patient, family Exam Limitations: no limitations Physician History: This is a thin 83-year-old gentleman who is diabetic, has a history of hypertension, has a history of coronary artery disease and myocardial infarction. In addition the patient has a history of peripheral vascular disease, stage IV renal disease and chronic anemia. He is hypothyroid and has a history of osteoporosis. Patient has a remote history of syncopal episodes. In the last several months he is not had any issues with this. However the Tuesday prior to this evaluation he felt weak and Tuesday he reports "blacking out" and falling. Today he also is feeling more weak than usual. The patient' s daughter, who he lives with, states that she was concerned about weakness. Patient's field party manager is Dr. Nelson. He has had a coronary artery bypass graft in the past, cardiac stents placed, bilateral lower extremity stents placed and cardiac valve replacement surgery. Takes Plavix, metoprolol and levothyroxine. Occurred: days ago (2) Reason for Fall: lightheaded Injuries/Pain Location: back Loss of Consciousness: no loss of consciousness Quality: sharpness, stabbing Severity of Pain-Max: mild Severity of Pain-Current: mild Modifying Factors: Improves With: movement Associated Symptoms (Fall): back pain, No abdominal pain, No chest pain, No extremity injury, No neck pain, No shortness of breath, No trouble walking Allergies/Adverse Reactions: No Known Drug Allergies Allergy (Verified 06/29/19 12:22) Home Medications: Clopidogrel Bisulfate [Clopidogrel] 75 mg PO DAILY 07/05/18 [History] Famotidine [Pepcid] 40 mg PO BID 07/05/18 [History] Isosorbide Mononitrate 20 mg [monoKET 20 MG] 20 mg PO HS 07/05/18 [History] Levothyroxine Sodium 75 mcg PO DAILY 07/05/18 [History] Melatonin 1 cap PO HS PRN 07/05/18 [History] Metoprolol Succinate 50 mg [Toprol Xl 50 MG] 50 mg PO DAILY 07/05/18 [ History] Mirtazapine 15 mg PO HS PRN 07/05/18 [History] Ranolazine 500 MG [Ranexa 500 MG] 500 mg PO BID 07/05/18 [History] Rosuvastatin Calcium 5 mg PO DAILY 07/05/18 [History] Allopurinol 100 mg [Zyloprim 100 mg] 100 mg PO DAILY 04/12/19 [History] Ascorbic Acid 500 mg [Vitamin C 500 MG] 500 mg PO DAILY 06/05/19 [History] Aspirin EC 325 mg [Ecotrin 325 MG] 325 mg PO DAILY 06/05/19 [History] Cholecalciferol (Vitamin D3) [Vitamin D3] 25 mcg PO DAILY 06/05/19 [History] Cyanocobalamin (Vitamin B-12) [Vitamin B-12] 1,000 mcg PO DAILY 06/05/19 [ History] Docusate Sodium 100 mg [Colace 100 MG] 100 mg PO BID 06/05/19 [History] Folic Acid 0.8 mg PO DAILY 06/05/19 [History] Furosemide 40 mg [Lasix 40 MG] 40 mg PO BID 06/05/19 [History] Hydrocodone/APAP 5-325 Tab^^^ [[place] 5-325 Tablet^^^] 1 tab PO Q6HPRN PRN MDD 6 06/05/19 [History] Insulin Aspart [Novolog] 0 unit SQ UD 06/05/19 [History] Insulin Detemir [Levemir] 15 unit SQ HS 06/05/19 [History] Iron 65 mg PO HS 06/05/19 [History] Hx Tetanus, Diphtheria Vaccination/Date Given: Yes Hx Influenza Vaccination/Date Given: Yes Hx Pneumococcal Vaccination/Date Given: Yes - Review of Systems Constitutional: Weakness Eyes: No Symptoms Ears, Nose, & Throat: No Symptoms Respiratory: No Symptoms Cardiac: No Symptoms Abdominal/Gastrointestinal: No Symptoms Genitourinary Symptoms: No Symptoms Musculoskeletal: Back Pain Skin: No Symptoms Neurological: Dizziness Psychological: No Symptoms Endocrine: No Symptoms Hematologic/Lymphatic: Anemia Immunological/Allergic: No Symptoms All Other Systems: Reviewed and Negative - Past Medical History Pertinent Past Medical History: Yes Neurological History: Peripheral Neuropathy ENT History: Cataracts Cardiac History: Coronary Artery Disease, High Cholesterol, Hypertension, Myocardial Infarction (VT) Respiratory History: No Pertinent History Endocrine Medical History: Diabetes Type II, Hypothyroidism Musculoskeletal History: Osteoporosis GI Medical History: Gallbladder Disease History: Renal Disease Psycho-Social History: No Pertinent History Male Reproductive Disorders: No Pertinent History Other Medical History: chronic anemia - Past Surgical History Past Surgical History: Yes Neuro Surgical History: No Pertinent History Cardiac: CABG, Cardiac Stent, Valve Replacement Respiratory: No Pertinent History Gastrointestinal: Cholecystectomy Genitourinary: No Pertinent History Musculoskeletal: Orthopedic Surgery Male Surgical History: No Pertinent History Other Surgical History: STENTS PLACE IN BOTH LEGS - Social History Smoking Status: Never smoker Exposure to second hand smoke: No Alcohol Use: None Drug Use: none Patient Lives Alone: No Significant Family History: no pertinent family hx - Nursing Vital Signs Nursing Vital Signs: Initial Vital Signs Temperature 97.6 F 06/29/19 12:06 Pulse Rate 66 06/29/19 12:06 Respiratory Rate 22 06/29/19 12:06 Blood Pressure 143/65 06/29/19 12:06 O2 Sat by Pulse Oximetry 94 L 06/29/19 12:06 Pain Scale Pain Intensity 8 - [place] Coma Score Best Eye Response ([place]): (4) open spontaneously Best Verbal Response ([place]): (5) oriented Best Motor Response ([place]): (6) obeys commands [place] Total: 15 - Physical Exam General Appearance: no apparent distress, alert, anxiety, thin Head Injury: no evidence of injury Eye Exam: PERRL/EOMI, eyes nml inspection ENT Exam: airway nml, evidence of ENT injury Neck Exam: supple, trachea midline, full range of motion, normal alignment, normal inspection Respiratory/Chest Exam: normal breath sounds, respiratory distress, No chest tenderness, No ecchymosis, No crepitus, No decreased breath sounds, No rhonchi, No wheezing, No accessory muscle use Cardiovascular Exam: normal heart sounds, regular rate/rhythm Gastrointestinal Exam: soft, normal bowel sounds, No tenderness Rectal Exam: not done Back Exam: normal inspection, normal range of motion, vertebral tenderness ( Thoracic and lumbar spine level), No CVA tenderness Extremity Exam: normal inspection, normal range of motion, pelvis stable Neurologic Exam: alert, oriented x 3, cooperative, television director II-XII nml as tested, normal mood/affect, other (Patient is hard of hearing) Skin Exam: warm, dry SpO2 Interpretation: normal O2 Delivery: Room Air - Course Nursing assessment & vital signs reviewed: Yes EKG Interpreted by Me: RATE (66), Sinus Rhythm, NORMAL AXIS, NORMAL INTERVALS, NORMAL QRS, Non-specific ST Changes, Other (No comparison EKG.) Ordered Tests: Active Orders 24 hr Category Date Time Status EKG-ER Only STAT Care 06/29/19 12:38 Active IV Insertion STAT Care 06/29/19 12:38 Active Pulse Oximetry (ED) STAT Care 06/29/19 12:38 Active HEAD WITHOUT CONTRAST [CT] Stat Exams 06/29/19 12:39 Completed LUMBAR LIMITED (2 OR 3 VIEWS) Stat Exams 06/29/19 12:40 Completed THORACIC SPINE (AP,LAT,SWIMM) Stat Exams 06/29/19 12:40 Completed CBC W DIFF Stat Lab 06/29/19 12:40 Completed CMP Stat Lab 06/29/19 12:40 Completed T4 (Thyroxine) Stat Lab 06/29/19 12:40 Completed TROPONIN Q3H Lab 06/29/19 12:40 Completed TROPONIN Q3H Lab 06/29/19 15:45 Completed TROPONIN Q3H Lab 06/29/19 18:45 Ordered TROPONIN Q3H Lab 06/29/19 21:45 Ordered TSH, 3RD Generation Routine Lab 06/29/19 12:40 Completed UA W/RFX UR CULTURE Stat Lab 06/29/19 13:49 Completed Transfer Order Routine Transfer 06/29/19 Ordered Medication Summary Discontinued Medications Generic Name Dose Route Start Last Admin Trade Name Freq PRN Reason Stop Dose Admin Sodium Chloride 500 mls @ 500 mls/hr 06/29/19 12:39 06/29/19 13:50 Sodium Chloride 0.9% 500 Ml IV 06/29/19 13:38 Infused .Q1H ONE Infusion Sodium Chloride Confirm 06/29/19 12:47 Sodium Chloride 0.9% 500 Ml Administered 06/29/19 12:48 Dose 500 mls @ ud IV .STK-MED ONE Lab/Rad Data: Laboratory Result Diagrams 06/29/19 12:40 06/29/19 12:40 Laboratory Results 06/29/19 06/29/19 06/29/19 Range/Units 15:45 13:49 12:40 WBC (4.0-10.5) K/mm3 RBC (4.1-5.6) M/mm3 Hgb (12.5-18.0) gm/dl Hct (42-50) % MCV (78-100) fl MCH (26-32) pg MCHC (32-36) g/dl RDW (11.5-14.0) % Plt Count (150-450) K/mm3 MPV (7.5-11.0) fl Gran % (36.0-66.0) % Eos # (Auto) (0-0.5) Absolute Lymphs (auto) (1.0-4.6) Absolute Monos (auto) (0.0-1.3) Lymphocytes % (24.0-44.0) % Monocytes % (0.0-12.0) % Eosinophils % (0.00-5.0) % Basophils % (0.0-0.4) % Absolute Granulocytes (1.4-6.9) Basophils # (0-0.4) Sodium (137-145) mmol/L Potassium (3.5-5.1) mmol/L Chloride (98-107) mmol/L Carbon Dioxide (22-30) mmol/L Anion Gap (5-15) MEQ/L BUN (9-20) mg/dL Creatinine (0.66-1.25) mg/dL Estimated GFR ML/MIN Glucose (74-106) mg/dL Calcium (8.4-10.2) mg/dL Total Bilirubin (0.2-1.3) mg/dL AST (17-59) U/L ALT (0-50) U/L Alkaline Phosphatase (38-126) U/L Troponin I < 0.012 < 0.012 (0.000-0.034) ng/mL Serum Total Protein (6.3-8.2) g/dL Albumin (3.5-5.0) g/dL Thyroxine (T4) (5.53-10.96) ug/dL TSH 3rd Generation 3.870 (0.47-4.68) mIU/L Urine Color YELLOW (YELLOW) Urine Appearance CLEAR (CLEAR) Urine pH 7.0 (5-6) Ur Specific [place] 1.010 (1.005-1.025) Urine Protein NEGATIVE (Negative) Urine Ketones NEGATIVE (NEGATIVE) Urine Blood NEGATIVE (0-5) Vasu/ul Urine Nitrite NEGATIVE (NEGATIVE) Urine Bilirubin NEGATIVE (NEGATIVE) Urine Urobilinogen NEGATIVE (0-1) mg/dL Ur Leukocyte Esterase NEGATIVE (NEGATIVE) Urine WBC (Auto) NONE (0-5) /HPF Urine RBC (Auto) NONE (0-2) /HPF U Epithel Cells (Auto) NONE (FEW) /HPF Urine Bacteria (Auto) NONE (NEGATIVE) /HPF Fatty Casts N (NEGATIVE) /LPF Waxy Casts (Auto) N (NEGATIVE) /LPF Urine Culture Reflexed NO (NO) Urine Glucose NEGATIVE (NEGATIVE) mg/dL 06/29/19 06/29/19 Range/Units 12:40 12:40 WBC 5.9 (4.0-10.5) K/mm3 RBC 3.49 L (4.1-5.6) M/mm3 Hgb 10.9 L (12.5-18.0) gm/dl Hct 33.9 L (42-50) % MCV 97.1 (78-100) fl MCH 31.2 (26-32) pg MCHC 32.2 (32-36) g/dl RDW 14.0 (11.5-14.0) % Plt Count 104 L (150-450) K/mm3 MPV 9.2 (7.5-11.0) fl Gran % 68.8 H (36.0-66.0) % Eos # (Auto) 0.15 (0-0.5) Absolute Lymphs (auto) 1.32 (1.0-4.6) Absolute Monos (auto) 0.37 (0.0-1.3) Lymphocytes % 22.2 L (24.0-44.0) % Monocytes % 6.2 (0.0-12.0) % Eosinophils % 2.5 (0.00-5.0) % Basophils % 0.3 (0.0-0.4) % Absolute Granulocytes 4.08 (1.4-6.9) Basophils # 0.02 (0-0.4) Sodium 142 (137-145) mmol/L Potassium 5.1 (3.5-5.1) mmol/L Chloride 106 (98-107) mmol/L Carbon Dioxide 27 (22-30) mmol/L Anion Gap 14.2 (5-15) MEQ/L BUN 35 H (9-20) mg/dL Creatinine 1.68 H (0.66-1.25) mg/dL Estimated GFR 41.8 ML/MIN Glucose 85 (74-106) mg/dL Calcium 9.2 (8.4-10.2) mg/dL Total Bilirubin 0.70 (0.2-1.3) mg/dL AST 25 (17-59) U/L ALT 27 (0-50) U/L Alkaline Phosphatase 79 (38-126) U/L Troponin I (0.000-0.034) ng/mL Serum Total Protein 7.7 (6.3-8.2) g/dL Albumin 4.6 (3.5-5.0) g/dL Thyroxine (T4) 5.19 L (5.53-10.96) ug/dL TSH 3rd Generation (0.47-4.68) mIU/L Urine Color (YELLOW) Urine Appearance (CLEAR) Urine pH (5-6) Ur Specific [place] (1.005-1.025) Urine Protein (Negative) Urine Ketones (NEGATIVE) Urine Blood (0-5) Vasu/ul Urine Nitrite (NEGATIVE) Urine Bilirubin (NEGATIVE) Urine Urobilinogen (0-1) mg/dL Ur Leukocyte Esterase (NEGATIVE) Urine WBC (Auto) (0-5) /HPF Urine RBC (Auto) (0-2) /HPF U Epithel Cells (Auto) (FEW) /HPF Urine Bacteria (Auto) (NEGATIVE) /HPF Fatty Casts (NEGATIVE) /LPF Waxy Casts (Auto) (NEGATIVE) /LPF Urine Culture Reflexed (NO) Urine Glucose (NEGATIVE) mg/dL - Progress Progress: improved, re-examined Progress Note: 06/29/19 16:18 The CAT scan of the head reveals moderate generalized atrophy which is unchanged from CAT scan dated 07/05/2018. There is no acute intracranial bleed or extra-axial fluid collection. There is no other acute intracranial process. There is no acute bony fractures. The the x-ray of the thoracic spine shows mild to moderate anterior wedge fracture deformity of T12 vertebral body of unknown age. This could be acute or subacute. No other acute thoracic spine fracture or subluxation is seen The x-ray of the lumbar spine shows no acute lumbar compression fracture deformity. There is no lumbar subluxation present 06/29/19 17:17 At 5:00 PM I spoke with Dr. Muñoz regarding this patient. I reviewed the patient's history, condition, labs, EKG and x-ray results. She accepts to place patient in observation Discussed with : Nnamdi Counseled pt/family regarding: lab results, diagnosis, rad results - Departure Departure Disposition: Observation Clinical Impression: Dehydration, Frequent falls, Fracture of thoracic spine Condition: Stable Critical Care Time: No Referrals: EVAN LAROSE MD [Primary Care Provider] -
[2019-06-29] MEDS ORDERED: Sodium Chloride 0.9% 500 ML 500 ML IV ONE ×2 (12:39→12:47)
[2019-06-29 12:52] LABS: Absolute Neutrophil Ct (ANC) 4.08 (1.4-6.9); BASOPHIL % 0.3 % (0.0-0.4); Basophil (Absolute #) 0.02 (0-0.4); Eosinophil % 2.5 % (0.00-5.0); Eosinophil (Absolute #) 0.15 (0-0.5); Hematocrit 33.9 % (42-50); Hemoglobin 10.9 gm/dl (12.5-18.0); Lymphocyte (Absolute #) 1.32 (1.0-4.6); Lymphocytes % 22.2 % (24.0-44.0); Mean Cell Volume 97.1 fl (78-100); Mean Corpuscular Hemoglobin 31.2 pg (26-32); Mean Corpuscular Hgb Concent. 32.2 g/dl (32-36); Mean Platelet Volume 9.2 fl (7.5-11.0); Monocyte (Absolute #) 0.37 (0.0-1.3); Monocytes % 6.2 % (0.0-12.0); Neutrophil % 68.8 % (36.0-66.0); Platelet Count 104 K/mm3 (150-450); Red Blood Count 3.49 M/mm3 (4.1-5.6); White Blood Count 5.9 K/mm3 (4.0-10.5)
[2019-06-29 13:25] LABS: ALBUMIN 4.6 g/dL (3.5-5.0); ANION GAP 14.2 MEQ/L (5-15); BILIRUBIN,TOTAL 0.7 mg/dL (0.2-1.3); Calcium 9.2 mg/dL (8.4-10.2); Creatinine 1 1.68 mg/dL (0.66-1.25); Potassium 5.1 mmol/L (3.5-5.1); T4 (Thyroxine) 5.19 ug/dL (5.53-10.96); Total Protein 7.7 g/dL (6.3-8.2)
--- NOTE | 2019-06-29 13:26 | XRAY ---
Exam: CT of the head without IV contrast from 06/29/2019. CTDI: 53.92 mGy. Comparison: CT of the head without IV contrast from 07/05/2018. Indication: 83-year-old male fell a few days ago with loss of consciousness. Technique: Non-IV contrast axial images were obtained through the brain. Reconstructed coronal and sagittal images were created and reviewed. Findings: The patient's head is mildly tilted in the CT gantry. I again see evidence of moderate generalized atrophy/cerebral volume loss representing no significant change from 07/05/2018. No focal mass effect or midline shift is seen. No acute intracranial bleed or abnormal extra-axial fluid collection is seen. There is mild bilateral periventricular and subcortical white matter white matter changes suggestive of chronic microvascular disease. This is unchanged. Atherosclerotic vascular calcification is seen within both distal vertebral arteries as well as both carotid siphons. The calvarium of the skull reveals no fracture or other significant focal bone lesion. There is a 1.2 cm in diameter polyp or retention cyst within the inferior aspect of the left maxillary sinus. I also note some minimal mucosal thickening at the inferior margin of the left maxillary sinus. Prior soft tissue density within the right side of the sphenoid sinus has resolved. No air-fluid levels are seen. The mastoid air cells appear clear. Impression: 1. Moderate generalized atrophy is again seen representing no significant change from 07/05/2018. 2. No acute intracranial bleed or abnormal extra-axial fluid collection is seen. No other acute intracranial process is seen. 3. Mild bilateral periventricular and subcortical white matter changes are seen, likely due to chronic microvascular disease. This is unchanged. 4. No acute fracture of the calvarium of the skull is seen. 5. Small polyp versus retention cyst at inferior left maxillary sinus with minimal adjacent mucosal thickening. No paranasal sinus air-fluid levels are seen. The right side of the sphenoid sinus has cleared as compared to the prior study. Mild thickening of the wall the right side of the sphenoid sinus is seen suggesting chronic changes. This is unchanged.
[2019-06-29 13:41] LABS: TROPONIN < 0.012 ng/mL (0.000-0.034)
--- NOTE | 2019-06-29 14:05 | XRAY ---
Exam: Thoracic spine films from 06/29/2019. Comparison: None. Indication: 83-year-old male with fall. Findings: AP, lateral, and swimmer's views of the thoracic spine were obtained. Lower anterior cervical fusion is seen at C5-C6 with a metallic plate with adjoining screws. The bones are demineralized. There is a mild to moderate anterior wedge fracture deformity of the T12 vertebral body with about 30-40% loss of the anterior vertebral body height. Age is unknown, but this could be acute or subacute. No other thoracic spine fracture or AP subluxation is seen. There is evidence of prior valve replacement at the level of the aortic valve with mediastinal clips and sternal wires. Surgical clips consistent with prior cholecystectomy are seen within the right upper quadrant. Abundant colonic stool is seen within the upper abdomen. The transverse heart size is normal. Impression: 1. Mild to moderate anterior wedge fracture deformity of T12 vertebral body of unknown age. However, this could be acute or subacute. 2. Bone demineralization and mild mid dorsal kyphosis are seen. 3. No other acute thoracic spine fracture or AP subluxation is seen.
[2019-06-29 14:09] LABS: Appearance CLEAR (CLEAR); Bilirubin NEGATIVE (NEGATIVE); Blood NEGATIVE Ery/ul (0-5); Glucose NEGATIVE (NEGATIVE); Ketones NEGATIVE (NEGATIVE); Leukocyte Esterase NEGATIVE (NEGATIVE); Nitrite NEGATIVE (NEGATIVE); Protein,Urine Dip NEGATIVE (Negative); Urobilinogen NEGATIVE mg/dL (0-1)
--- NOTE | 2019-06-29 14:09 | XRAY ---
Exam: 3 view lumbar spine series from 06/29/2019. Comparison: None. Indication: 83-year-old male with fall. Findings: AP, lateral, and coned-down lateral films of the lumbosacral junction were obtained. There are 5 [id number] lumbar-type vertebra. The bones are demineralized. I again see a mild to moderate anterior wedge fracture deformity of unknown age affecting T12. I see no acute lumbar spine fracture. There is mild grade 1 anterolisthesis of L5 over S1. I cannot exclude spondylolysis within the posterior elements of L5. There is mild narrowing of the L5-S1 interspace height. The other lumbar interspaces are well-maintained. A left renal artery stent and a right common iliac artery stent are seen. Surgical clips consistent with prior cholecystectomy are noted. Moderate atherosclerotic vascular calcification is seen within the abdominal aorta. Impression: 1. I again see a mild to moderate anterior wedge fracture deformity of T12 of unknown age. However, this could be acute or subacute. 2. Grade 1 anterolisthesis of L5 over S1. Posterior spondylolysis at L5 cannot be excluded. 3. No other acute lumbar compression fracture deformity is seen. The bones are demineralized. 4. Other incidental findings, as discussed above.
[2019-06-29 14:15] LABS: Fatty Casts,Urine N /LPF (NEGATIVE); Waxy Casts,Urine N /LPF (NEGATIVE)
[2019-06-29] MEDS ORDERED: Zofran 4 MG/2 ML VIAL IV PRN (18:01)
[2019-06-29] MEDS ORDERED: NORCO 5/325 MG PO PRN (19:56)
[2019-06-29] MEDS: Sodium Chloride 0.9% 1000 ML 1,000 ML IV SCH (20:18)
[2019-06-29] MEDS: Colace 100 MG PO SCH (21:50)
[2019-06-29] MEDS: Ranexa 500 MG PO SCH (21:50)
[2019-06-29] MEDS: Lantus Insulin SQ SCH (21:50)
[2019-06-29] MEDS: monoKET 20 MG PO SCH (21:50)
[2019-06-29] MEDS: REMERON 30 MG PO SCH (21:51)
[2019-06-29] MEDS: Pepcid 20 MG PO SCH (21:51)
[2019-06-30 04:56] LABS: Absolute Neutrophil Ct (ANC) 2.95 (1.4-6.9); BASOPHIL % 0.4 % (0.0-0.4); Basophil (Absolute #) 0.02 (0-0.4); Eosinophil % 2.6 % (0.00-5.0); Eosinophil (Absolute #) 0.13 (0-0.5); Hematocrit 28.9 % (42-50); Hemoglobin 9.4 gm/dl (12.5-18.0); Lymphocyte (Absolute #) 1.52 (1.0-4.6); Lymphocytes % 30.3 % (24.0-44.0); Mean Corpuscular Hemoglobin 31.5 pg (26-32); Mean Corpuscular Hgb Concent. 32.5 g/dl (32-36); Mean Platelet Volume 8.5 fl (7.5-11.0); Neutrophil % 58.7 % (36.0-66.0); Platelet Count 90 K/mm3 (150-450); Red Blood Count 2.98 M/mm3 (4.1-5.6); Red Cell Distribution Width 13.9 % (11.5-14.0)
[2019-06-30 04:58] LABS: ANION GAP 11.1 MEQ/L (5-15); Calcium 8.7 mg/dL (8.4-10.2); Creatinine 1 1.72 mg/dL (0.66-1.25); Potassium 5.2 mmol/L (3.5-5.1)
[2019-06-30 05:31] LABS: Slide Review 1 YES
[2019-06-30] MEDS ORDERED: MELATONIN PO PRN (08:15)
[2019-06-30] MEDS ORDERED: MEDICATION INTERVENTION MC SCH (08:45)
[2019-06-30] MEDS ORDERED: NON-FORMULARY ITEM (Cyanocobalamin (Vitamin B-12) [Vitamin B-12] 1,000 MCG) PO SCH (10:00)
[2019-06-30] MEDS ORDERED: CHOLECALCIFEROL 25 MCG PO SCH (10:00)
[2019-06-30] MEDS ORDERED: NON-FORMULARY ITEM (Folic Acid [Folic Acid] 0.8 MG) PO SCH (10:00)
[2019-06-30] MEDS: FOLATE 1 MG PO SCH (10:02)
[2019-06-30] MEDS: Lasix 40 MG PO SCH ×2 (10:02→19:45)
[2019-06-30] MEDS: Ecotrin 325 MG PO SCH (10:02)
[2019-06-30] MEDS: Pepcid 20 MG PO SCH ×2 (10:02→22:06)
[2019-06-30] MEDS: Colace 100 MG PO SCH ×2 (10:02→22:06)
[2019-06-30] MEDS: VITAMIN D PO SCH (10:03)
[2019-06-30] MEDS: Toprol Xl 50 MG PO SCH (10:03)
[2019-06-30] MEDS: ZYLOPRIM 100 MG PO SCH (10:03)
[2019-06-30] MEDS: Vitamin C 500 MG PO SCH (10:03)
[2019-06-30] MEDS: SYNTHROID 75 MCG PO SCH (10:03)
[2019-06-30] MEDS: Ranexa 500 MG PO SCH ×2 (10:03→22:07)
[2019-06-30] MEDS: Vitamin B-12 500 MCG PO SCH (10:03)
[2019-06-30] MEDS: PLAVIX 75 MG Tablet PO SCH (10:03)
--- NOTE | 2019-06-30 14:07 | PCM.HP ---
History of Present Illness - Chief Complaint Chief Complaint: weakness History of Present Illness: is a 83 year old male who lives at home with his . He is IDDM , with CAD/S/P CABG , HTN ,PVD and Hx CVA.He has osteoporosis and a recent fracture of vertebra. He walks without assistance and has normal mentation. Patient is seen today with his and daughter present who state patient has had 3 falls in the last 10 days(patient describes it as "the lights go out and I find myself on the ground".) states he had the same fall senario back in APR 2019 but no explanation of why he has the syncope. Real Estate Recruiter is Dr Jaskaran Hannon .He presented through ER because of progressive weakness and another fall. - Review of Systems Constitutional: Weakness (no fever or chills) Eyes: No Symptoms Ears, Nose, & Throat: No Symptoms Respiratory: No Symptoms Cardiac: Other (light headed upon standing,episodic) Genitourinary Symptoms: Other (see HPI is to have a back brace for tx of fx following a fall) Musculoskeletal: Back Pain Skin: No Symptoms Neurological: Dizziness (denies seizure or focal weakness) Hematologic/Lymphatic: Other (is on blood thinner) Medications & Allergies Home Medications: Home Medication List Clopidogrel Bisulfate [Clopidogrel] 75 mg PO DAILY 07/05/18 [History Confirmed 06/29/19] Famotidine [Pepcid] 40 mg PO BID 07/05/18 [History Confirmed 06/29/19] Isosorbide Mononitrate 20 mg [monoKET 20 MG] 20 mg PO HS 07/05/18 [History Confirmed 06/29/19] Levothyroxine Sodium 75 mcg PO DAILY 07/05/18 [History Confirmed 06/29/19] Melatonin 1 cap PO HS PRN 07/05/18 [History Confirmed 06/29/19] Metoprolol Succinate 50 mg [Toprol Xl 50 MG] 50 mg PO DAILY 07/05/18 [ History Confirmed 06/29/19] Mirtazapine 15 mg PO DAILY 07/05/18 [History Confirmed 06/29/19] Ranolazine 500 MG [Ranexa 500 MG] 500 mg PO BID 07/05/18 [History Confirmed 06/29/19] Rosuvastatin Calcium 5 mg PO DAILY 07/05/18 [History Confirmed 06/29/19] Allopurinol 100 mg [Zyloprim 100 mg] 100 mg PO DAILY 04/12/19 [History Confirmed 06/29/19] Ascorbic Acid 500 mg [Vitamin C 500 MG] 500 mg PO DAILY 06/05/19 [History Confirmed 06/29/19] Aspirin EC 325 mg [Ecotrin 325 MG] 325 mg PO DAILY 06/05/19 [History Confirmed 06/29/19] Cholecalciferol (Vitamin D3) [Vitamin D3] 25 mcg PO DAILY 06/05/19 [History Confirmed 06/29/19] Cyanocobalamin (Vitamin B-12) [Vitamin B-12] 1,000 mcg PO DAILY 06/05/19 [ History Confirmed 06/29/19] Docusate Sodium 100 mg [Colace 100 MG] 100 mg PO BID 06/05/19 [History Confirmed 06/29/19] Folic Acid 0.8 mg PO DAILY 06/05/19 [History Confirmed 06/29/19] Furosemide 40 mg [Lasix 40 MG] 40 mg PO BID 06/05/19 [History Confirmed ] Hydrocodone/APAP 5-325 Tab^^^ [[place] 5-325 Tablet^^^] 1 tab PO Q6HPRN PRN MDD 6 06/05/19 [History Confirmed 06/29/19] Insulin Aspart [Novolog] 0 unit SQ UD 06/05/19 [History Confirmed 06/29/19] Insulin Detemir [Levemir] 15 unit SQ HS 06/05/19 [History Confirmed 06/29/19] Iron 65 mg PO HS 06/05/19 [History Confirmed 06/29/19] Allergies/Adverse Reactions: Allergies Allergy/AdvReac Type Severity Reaction Status Date / Time No Known Drug Allergies Allergy Verified 06/29/19 18:58 - Past Medical History Past Medical History: Yes Neurological History: Peripheral Neuropathy ENT History: Cataracts Cardiac History: Coronary Artery Disease, High Cholesterol, Hypertension, Myocardial Infarction ([place]) Respiratory History: No Pertinent History Endocrine Medical History: Diabetes Type II, Hypothyroidism Musculoskelatal History: Osteoporosis GI Medical History: Gallbladder Disease History: Renal Disease Pyscho-Social History: No Pertinent History Male Reproductive Disorders: No Pertinent History Comment: chronic anemia - Past Surgical History Past Surgical History: Yes Neuro Surgical History: No Pertinent History Cardiac History: CABG, Cardiac Stent, Valve Replacement Respiratory Surgery: No Pertinent History GI Surgical History: Cholecystectomy Genitourinary Surgical Hx: No Pertinent History Musculskeletal Surgical Hx: Orthopedic Surgery Male Surgical History: No Pertinent History Other Surgical History: STENTS PLACE IN BOTH LEGS. right hip tx in Nov with surgical repair with pin - Social History Smoking Status: Never smoker Exposure to second hand smoke: No Alcohol: None Drug Use: none Significant Family History: no pertinent family hx - Physical Exam Vital Signs: Vital Signs - 24 hr Temp Pulse Resp BP Pulse Ox 06/30/19 12:00 98.3 F 69 15 144/65 98 06/30/19 08:00 97.7 F 68 16 154/77 98 06/30/19 04:00 97.8 F 68 20 159/71 95 06/30/19 00:09 98.2 F 67 18 151/70 96 06/29/19 19:48 97.6 F 61 20 166/72 96 06/29/19 18:38 95 06/29/19 18:25 97.6 F 61 18 166/72 96 06/29/19 16:14 59 L 13 141/67 100 06/29/19 15:11 59 L 7 L 172/67 100 06/29/19 14:06 62 184/72 99 General Appearance: no apparent distress Neurologic Exam: alert, oriented x 3, cooperative, clinical allergist II-XII nml as tested, normal mood/affect, other (normal movement of all extremities with dcreased strength bilat LE4/5) Results - Labs Lab/Micro Results: Accuchecks Date 06/30/19 Date 06/29/19 Time 07:30 Time 22:00 Accucheck Value: 223 Lab Results-Last 24 Hours 06/29/19 06/29/19 06/29/19 Range/Units 13:49 15:45 18:30 WBC (4.0-10.5) K/mm3 RBC (4.1-5.6) M/mm3 Hgb (12.5-18.0) gm/dl Hct (42-50) % MCV (78-100) fl MCH (26-32) pg MCHC (32-36) g/dl RDW (11.5-14.0) % Plt Count (150-450) K/mm3 MPV (7.5-11.0) fl Gran % (36.0-66.0) % Eos # (Auto) (0-0.5) Absolute Lymphs (auto) (1.0-4.6) Absolute Monos (auto) (0.0-1.3) Lymphocytes % (24.0-44.0) % Monocytes % (0.0-12.0) % Eosinophils % (0.00-5.0) % Basophils % (0.0-0.4) % Absolute Granulocytes (1.4-6.9) Basophils # (0-0.4) Sodium (137-145) mmol/L Potassium (3.5-5.1) mmol/L Chloride (98-107) mmol/L Carbon Dioxide (22-30) mmol/L Anion Gap (5-15) MEQ/L BUN (9-20) mg/dL Creatinine (0.66-1.25) mg/dL Estimated GFR ML/MIN Glucose (74-106) mg/dL Hemoglobin A1c 6.21 H (4.5-6.0) % Calcium (8.4-10.2) mg/dL Troponin I < 0.012 (0.000-0.034) ng/mL Urine Color YELLOW (YELLOW) Urine Appearance CLEAR (CLEAR) Urine pH 7.0 (5-6) Ur Specific [place] 1.010 (1.005-1.025) Urine Protein NEGATIVE (Negative) Urine Ketones NEGATIVE (NEGATIVE) Urine Blood NEGATIVE (0-5) Vasu/ul Urine Nitrite NEGATIVE (NEGATIVE) Urine Bilirubin NEGATIVE (NEGATIVE) Urine Urobilinogen NEGATIVE (0-1) mg/dL Ur Leukocyte Esterase NEGATIVE (NEGATIVE) Urine WBC (Auto) NONE (0-5) /HPF Urine RBC (Auto) NONE (0-2) /HPF U Epithel Cells (Auto) NONE (FEW) /HPF Urine Bacteria (Auto) NONE (NEGATIVE) /HPF Fatty Casts N (NEGATIVE) /LPF Waxy Casts (Auto) N (NEGATIVE) /LPF Urine Culture Reflexed NO (NO) Urine Glucose NEGATIVE (NEGATIVE) mg/dL Slides for Path Review 06/29/19 06/29/19 06/30/19 Range/Units 19:20 22:42 04:45 WBC 5.0 (4.0-10.5) K/mm3 RBC 2.98 L (4.1-5.6) M/mm3 Hgb 9.4 L (12.5-18.0) gm/dl Hct 28.9 L (42-50) % MCV 97.0 (78-100) fl MCH 31.5 (26-32) pg MCHC 32.5 (32-36) g/dl RDW 13.9 (11.5-14.0) % Plt Count 90 L (150-450) K/mm3 MPV 8.5 (7.5-11.0) fl Gran % 58.7 (36.0-66.0) % Eos # (Auto) 0.13 (0-0.5) Absolute Lymphs (auto) 1.52 (1.0-4.6) Absolute Monos (auto) 0.40 (0.0-1.3) Lymphocytes % 30.3 (24.0-44.0) % Monocytes % 8.0 (0.0-12.0) % Eosinophils % 2.6 (0.00-5.0) % Basophils % 0.4 (0.0-0.4) % Absolute Granulocytes 2.95 (1.4-6.9) Basophils # 0.02 (0-0.4) Sodium (137-145) mmol/L Potassium (3.5-5.1) mmol/L Chloride (98-107) mmol/L Carbon Dioxide (22-30) mmol/L Anion Gap (5-15) MEQ/L BUN (9-20) mg/dL Creatinine (0.66-1.25) mg/dL Estimated GFR ML/MIN Glucose (74-106) mg/dL Hemoglobin A1c (4.5-6.0) % Calcium (8.4-10.2) mg/dL Troponin I < 0.012 < 0.012 (0.000-0.034) ng/mL Urine Color (YELLOW) Urine Appearance (CLEAR) Urine pH (5-6) Ur Specific [place] (1.005-1.025) Urine Protein (Negative) Urine Ketones (NEGATIVE) Urine Blood (0-5) Vasu/ul Urine Nitrite (NEGATIVE) Urine Bilirubin (NEGATIVE) Urine Urobilinogen (0-1) mg/dL Ur Leukocyte Esterase (NEGATIVE) Urine WBC (Auto) (0-5) /HPF Urine RBC (Auto) (0-2) /HPF U Epithel Cells (Auto) (FEW) /HPF Urine Bacteria (Auto) (NEGATIVE) /HPF Fatty Casts (NEGATIVE) /LPF Waxy Casts (Auto) (NEGATIVE) /LPF Urine Culture Reflexed (NO) Urine Glucose (NEGATIVE) mg/dL Slides for Path Review YES 06/30/19 Range/Units 04:45 WBC (4.0-10.5) K/mm3 RBC (4.1-5.6) M/mm3 Hgb (12.5-18.0) gm/dl Hct (42-50) % MCV (78-100) fl MCH (26-32) pg MCHC (32-36) g/dl RDW (11.5-14.0) % Plt Count (150-450) K/mm3 MPV (7.5-11.0) fl Gran % (36.0-66.0) % Eos # (Auto) (0-0.5) Absolute Lymphs (auto) (1.0-4.6) Absolute Monos (auto) (0.0-1.3) Lymphocytes % (24.0-44.0) % Monocytes % (0.0-12.0) % Eosinophils % (0.00-5.0) % Basophils % (0.0-0.4) % Absolute Granulocytes (1.4-6.9) Basophils # (0-0.4) Sodium 140 (137-145) mmol/L Potassium 5.2 H (3.5-5.1) mmol/L Chloride 107 (98-107) mmol/L Carbon Dioxide 27 (22-30) mmol/L Anion Gap 11.1 (5-15) MEQ/L BUN 38 H (9-20) mg/dL Creatinine 1.72 H (0.66-1.25) mg/dL Estimated GFR 40.7 ML/MIN Glucose 141 H (74-106) mg/dL Hemoglobin A1c (4.5-6.0) % Calcium 8.7 (8.4-10.2) mg/dL Troponin I (0.000-0.034) ng/mL Urine Color (YELLOW) Urine Appearance (CLEAR) Urine pH (5-6) Ur Specific [place] (1.005-1.025) Urine Protein (Negative) Urine Ketones (NEGATIVE) Urine Blood (0-5) Vasu/ul Urine Nitrite (NEGATIVE) Urine Bilirubin (NEGATIVE) Urine Urobilinogen (0-1) mg/dL Ur Leukocyte Esterase (NEGATIVE) Urine WBC (Auto) (0-5) /HPF Urine RBC (Auto) (0-2) /HPF U Epithel Cells (Auto) (FEW) /HPF Urine Bacteria (Auto) (NEGATIVE) /HPF Fatty Casts (NEGATIVE) /LPF Waxy Casts (Auto) (NEGATIVE) /LPF Urine Culture Reflexed (NO) Urine Glucose (NEGATIVE) mg/dL Slides for Path Review Accuchecks Date 06/30/19 Date 06/29/19 Time 07:30 Time 22:00 Accucheck Value: 223 - Radiology Impressions Radiology Exams & Impressions: Radiology Procedures Category Date Time Status HEAD WITHOUT CONTRAST [CT] Stat Exams 06/29/19 12:39 Completed LUMBAR LIMITED (2 OR 3 VIEWS) Stat Exams 06/29/19 12:40 Completed THORACIC SPINE (AP,LAT,SWIMM) Stat Exams 06/29/19 12:40 Completed Assessment/Plan (1) Syncope and collapse Current Visit: Yes Status: Acute Assessment & Plan: ECHO, EEG,Monitor sugars Code(s): R55 - SYNCOPE AND COLLAPSE (2) IDDM (insulin dependent diabetes mellitus) Current Visit: Yes Status: Chronic Code(s): [id number] - (3) Dehydration Current Visit: Yes Status: Acute Assessment & Plan: improved since adm Code(s): E86.0 - DEHYDRATION (4) CAD (coronary artery disease) of artery bypass graft Current Visit: Yes Status: Chronic Qualifiers: Associated angina: without angina Code(s): I25.810 - ATHEROSCLEROSIS OF CABG W/O ANGINA PECTORIS (5) Recurrent falls Current Visit: Yes Status: Acute Code(s): R29.6 - REPEATED FALLS
[2019-06-30] MEDS ORDERED: DULCOLAX 5 MG PO PRN (15:41)
[2019-06-30] MEDS: Sodium Chloride 0.9% 1000 ML 1,000 ML IV SCH (17:21)
[2019-06-30] MEDS: HUMALOG SQ PRN (17:22)
[2019-06-30] MEDS ORDERED: NON-FORMULARY ITEM (Iron [Iron] 65 MG) PO SCH (22:00)
[2019-06-30] MEDS: FEOSOL 325 MG PO SCH (22:06)
[2019-06-30] MEDS: Zocor 10MG PO SCH (22:06)
[2019-06-30] MEDS: REMERON 30 MG PO SCH (22:07)
[2019-06-30] MEDS: monoKET 20 MG PO SCH (22:07)
[2019-06-30] MEDS: Lantus Insulin SQ SCH (22:08)
[2019-06-30] MEDS: TYLENOL 325 MG PO PRN (22:19)
[2019-07-01] MEDS: Pepcid 20 MG PO SCH ×2 (09:10→22:08)
[2019-07-01] MEDS: Ecotrin 325 MG PO SCH (09:10)
[2019-07-01] MEDS: Lasix 40 MG PO SCH ×2 (09:10→17:01)
[2019-07-01] MEDS: Colace 100 MG PO SCH ×2 (09:10→22:08)
[2019-07-01] MEDS: Ranexa 500 MG PO SCH ×2 (09:10→22:08)
[2019-07-01] MEDS: PLAVIX 75 MG Tablet PO SCH (09:10)
[2019-07-01] MEDS: FOLATE 1 MG PO SCH (09:10)
[2019-07-01] MEDS: Vitamin C 500 MG PO SCH (09:11)
[2019-07-01] MEDS: Vitamin B-12 500 MCG PO SCH (09:11)
[2019-07-01] MEDS: Toprol Xl 50 MG PO SCH (09:11)
[2019-07-01] MEDS: VITAMIN D PO SCH (09:11)
[2019-07-01] MEDS: SYNTHROID 75 MCG PO SCH (09:11)
[2019-07-01] MEDS: ZYLOPRIM 100 MG PO SCH (09:11)
[2019-07-01] MEDS: Sodium Chloride 0.9% 1000 ML 1,000 ML IV SCH (14:24)
--- NOTE | 2019-07-01 14:43 | PCM.NOTE ---
Date and Time: 07/01/19 1437 Subjective Assessment: Patient is resting in bed and denies any new symptoms .Has been up with staff walking back and forth in the room without any dizziness or weakness today. FBS 85 today, patient states he has had sugars as low as (66) in the morning. states he wants to snack on sweets like marshmellows and then will not eat supper.She is not sure if he tests sugars or takes mealtime insulin . He is on Levemir 15 units q PM. He will be staying overnight to have ECHO and EEG Tuesday . This is his 2nd admit for Syncope in the past few months.His Pathology Supervisor is Dr Melinda Hannon who does not round at out hospital. Teleneuro and Telecardiology not available today(Tuesday). Objective Exam General Appearance: no apparent distress, other (Patient is seen with and daughter at the bedside. He is pleasant and talkative and willing to eat "real food" at mealtime in place of sweets like he has been doing.) Neurologic Exam: alert, oriented x 3, cooperative, certified lactation educator II-XII nml as tested, normal mood/affect, motor deficits (since admission) Skin Exam: normal color, warm, dry Eye Exam: PERRL, EOMI Ears, Nose, Throat Exam: normal ENT inspection Neck Exam: normal inspection Respiratory Exam: normal breath sounds Cardiovascular Exam: regular rate/rhythm, other (sinus rythum on telemetry) Extremity Exam: other (no edema , strength 4-5/5 bilat UE,4/5 right LE 5/5 left LE) OBJECTIVE DATA Vital Signs: Vital Signs - 24 hr Temp Pulse Resp BP Pulse Ox 07/01/19 12:00 98.3 F 70 16 166/74 98 07/01/19 08:00 97.6 F 70 16 168/81 98 07/01/19 04:00 97.9 F 65 18 159/69 95 07/01/19 00:00 98.5 F 66 17 173/75 95 06/30/19 20:00 98.7 F 67 18 185/76 96 06/30/19 16:00 98.4 F 70 16 141/65 98 Pain Assessment - Last Documented Pain Intensity 0 Pain Scale Used 0-10 Pain Scale Intake and Output: Intake & Output 06/29/19 06/30/19 07/01/1902/20 11:59 11:59 11:59 11:59 Intake Total 903 2392 240 Output Total 1100 400 Balance -197 1991 240 Weight 54.8 kg 57.2 kg Lab Results: Accuchecks Date 07/01/19 Date 07/01/19 Date 06/30/19 Time 11:30 Time 07:50 Time 16:30 Accucheck Value: 177 Accucheck Value: 85 Accucheck Value: 156 Accucheck Value: 242 Radiology Exams: Radiology Procedures Category Date Time Status ECHO W/2D AND DOPPLER [US] Routine Exams 07/02/19 08:00 Ordered Assessment/Plan (1) Syncope and collapse Status: Acute Code(s): R55 - SYNCOPE AND COLLAPSE (2) Hypoglycemia associated with type 2 diabetes mellitus Status: Acute Assessment & Plan: noncompliance with regular testing,may need to stop insulin since A1c 6.1% Code(s): E11.649 - TYPE 2 DIABETES MELLITUS WITH HYPOGLYCEMIA WITHOUT COMA
[2019-07-01] MEDS: HUMALOG SQ PRN ×2 (17:02→22:11)
[2019-07-01] MEDS: REMERON 30 MG PO SCH (22:08)
[2019-07-01] MEDS: FEOSOL 325 MG PO SCH (22:08)
[2019-07-01] MEDS: Zocor 10MG PO SCH (22:09)
[2019-07-01] MEDS: monoKET 20 MG PO SCH (22:09)
[2019-07-01] MEDS: Lantus Insulin SQ SCH (22:12)
--- NOTE | 2019-07-02 08:18 | PCM.NOTE ---
Date and Time: 07/02/19 0816 Subjective Assessment: patient denies any chest pain or shortness of breath, states he has had no episodes since admission and is ambulating with his walker. he describes episodes of becoming very dizzy and weak in his legs to me but not truly "passing out" or losing consciousness prior to admission. Objective Exam General Appearance: no apparent distress Neurologic Exam: alert, oriented x 3, cooperative Skin Exam: normal color, warm, dry Respiratory Exam: normal breath sounds, lungs clear, No respiratory distress Cardiovascular Exam: regular rate/rhythm, normal heart sounds Gastrointestinal/Abdomen Exam: soft, No tenderness, No mass Extremity Exam: normal inspection, normal range of motion OBJECTIVE DATA Vital Signs: Vital Signs - 24 hr Temp Pulse Resp BP Pulse Ox 07/02/19 04:00 98.2 F 71 16 165/80 100 07/02/19 00:00 98.5 F 75 18 147/83 98 07/01/19 20:00 98.5 F 73 16 150/65 99 07/01/19 16:00 98.3 F 77 15 167/73 99 07/01/19 12:00 98.3 F 70 16 166/74 98 Pain Assessment - Last Documented Pain Intensity 0 Pain Scale Used 0-10 Pain Scale Intake and Output: Intake & Output 06/29/19 06/30/19 07/01/19 07/02/19 11:59 11:59 11:59 11:59 Intake Total 903 2392 2005 Output Total 1100 400 800 Balance -197 1991 120 Weight 54.8 kg 57.2 kg 61.1 kg Lab Results: Accuchecks Date 07/01/19 Date 07/01/19 Time 16:30 Time 11:30 Accucheck Value: 226 Accucheck Value: 207 Accucheck Value: 177 Radiology Exams: Radiology Procedures Category Date Time Status ECHO W/2D AND DOPPLER [US] Routine Exams 07/02/19 08:00 Ordered Assessment/Plan (1) Pre-syncope Current Visit: Yes Status: Acute Assessment & Plan: echo pending, will have EEG today. also will have telecardiology consult with [facility] today. (2) Dehydration Current Visit: Yes Status: Acute Assessment & Plan: has been rehydrated and doing well. Code(s): E86.0 - DEHYDRATION (3) Frequent falls Current Visit: Yes Status: Acute Code(s): R29.6 - REPEATED FALLS
[2019-07-02] MEDS: Ecotrin 325 MG PO SCH (08:19)
[2019-07-02] MEDS: Pepcid 20 MG PO SCH ×2 (08:19→21:30)
[2019-07-02] MEDS: Vitamin B-12 500 MCG PO SCH (08:19)
[2019-07-02] MEDS: PLAVIX 75 MG Tablet PO SCH (08:19)
[2019-07-02] MEDS: VITAMIN D PO SCH (08:19)
[2019-07-02] MEDS: Lasix 40 MG PO SCH ×2 (08:19→17:11)
[2019-07-02] MEDS: Toprol Xl 50 MG PO SCH (08:19)
[2019-07-02] MEDS: Colace 100 MG PO SCH ×2 (08:20→21:45)
[2019-07-02] MEDS: SYNTHROID 75 MCG PO SCH (08:20)
[2019-07-02] MEDS: Ranexa 500 MG PO SCH ×2 (08:20→21:31)
[2019-07-02] MEDS: FOLATE 1 MG PO SCH (08:20)
[2019-07-02] MEDS: Vitamin C 500 MG PO SCH (08:20)
[2019-07-02] MEDS: ZYLOPRIM 100 MG PO SCH (08:20)
[2019-07-02 09:45] LABS: Absolute Neutrophil Ct (ANC) 3.15 (1.4-6.9); BASOPHIL % 0.4 % (0.0-0.4); Basophil (Absolute #) 0.02 (0-0.4); Eosinophil % 2.4 % (0.00-5.0); Eosinophil (Absolute #) 0.13 (0-0.5); Hematocrit 28.2 % (42-50); Hemoglobin 9.4 gm/dl (12.5-18.0); Lymphocyte (Absolute #) 1.81 (1.0-4.6); Lymphocytes % 32.7 % (24.0-44.0); Mean Cell Volume 95.6 fl (78-100); Mean Corpuscular Hemoglobin 31.9 pg (26-32); Mean Corpuscular Hgb Concent. 33.3 g/dl (32-36); Mean Platelet Volume 8.3 fl (7.5-11.0); Monocyte (Absolute #) 0.42 (0.0-1.3); Monocytes % 7.6 % (0.0-12.0); Neutrophil % 56.9 % (36.0-66.0); Platelet Count 88 K/mm3 (150-450); Red Blood Count 2.95 M/mm3 (4.1-5.6); White Blood Count 5.5 K/mm3 (4.0-10.5)
[2019-07-02] MEDS ORDERED: Sodium Chloride 0.9% 1000 ML 1,000 ML IV STA (09:46)
[2019-07-02 10:08] LABS: ANION GAP 10.8 MEQ/L (5-15); Calcium 8.7 mg/dL (8.4-10.2); Creatinine 1 1.54 mg/dL (0.66-1.25); Potassium 4.5 mmol/L (3.5-5.1)
[2019-07-02 11:05] LABS: Slide Review 1 YES
[2019-07-02] MEDS: Sodium Chloride 0.9% 1000 ML 1,000 ML IV SCH (11:54)
[2019-07-02] MEDS ORDERED: NORVASC 5 MG ONE (19:28)
[2019-07-02] MEDS ORDERED: NORVASC 5 MG PO ONE (19:29)
[2019-07-02] MEDS: Zocor 10MG PO SCH (21:31)
[2019-07-02] MEDS: monoKET 20 MG PO SCH (21:31)
[2019-07-02] MEDS: FEOSOL 325 MG PO SCH (21:31)
[2019-07-02] MEDS: REMERON 30 MG PO SCH (21:31)
[2019-07-02] MEDS: HUMALOG SQ PRN (21:46)
[2019-07-02] MEDS: Lantus Insulin SQ SCH (21:46)
--- NOTE | 2019-07-03 08:24 | ECHO ---
DATE OF PROCEDURE: 07/02/2019 INDICATION FOR STUDY: Syncope, coronary artery disease, history of coronary artery bypass graft and hypertension as well as TAVR. PROCEDURE: Complete two-dimensional echocardiogram with color Doppler and Spectral analysis. FINDINGS: The left ventricle is normal size with mild concentric left ventricular hypertrophy. Normal left ventricular systolic function with ejection fraction of 55 to 60%. Right ventricular is normal size with normal systolic function. The left atrium is mildly dilated. The right atrium is normal size. Inferior vena cava is not well visualized. 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 The mitral valve leaflets are thickened. There is mild mitral annular calcification. There is moderate mitral regurgitation. The tricuspid valve leaflets are thin and pliable. There is mild tricuspid regurgitation. Right ventricular systolic pressure is normal. The pulmonic valve is not well visualized. The aortic root is normal diameter. There is no pericardial effusion. IMPRESSION: 1) NORMAL LEFT VENTRICULAR SIZE WITH MILD LEFT VENTRICULAR CONCENTRIC HYPERTROPHY. 2) NORMAL LEFT VENTRICULAR SYSTOLIC FUNCTION WITH EJECTION FRACTION 55 TO 60%. 3) NORMAL RIGHT VENTRICULAR SIZE AND SYSTOLIC FUNCTION. 4) TRANSCATHETER AORTIC VALVE REPLACEMENT IS WELL SEATED WITH NO PARAVALVULAR LEAK AND NORMAL VALVE GRADIENT. 5) MODERATE MITRAL REGURGITATION. 6) MILD TRICUSPID REGURGITATION WITH NORMAL RIGHT VENTRICULAR SYSTOLIC PRESSURE. 7) NO PERICARDIAL EFFUSION.
[2019-07-03] MEDS ORDERED: APRESOLINE 20 MG/ML INJ IV PRN (08:43)
--- NOTE | 2019-07-03 08:43 | PCM.NOTE ---
Date and Time: 07/03/19 0838 Subjective Assessment: Pt has no real complaints today. No dizziness or falling in the past day or so. Ronan po. - Review of Systems Constitutional: No Fever Abdominal/Gastrointestinal: No Vomiting Objective Exam General Appearance: no apparent distress, alert Neurologic Exam: oriented x 3, cooperative Skin Exam: normal color, warm, dry, No rash Eye Exam: eyes nml inspection Respiratory Exam: normal breath sounds, lungs clear, No crackles/rales, No rhonchi, No wheezing Cardiovascular Exam: regular rate/rhythm, normal heart sounds, No murmur Gastrointestinal/Abdomen Exam: soft, normal bowel sounds, No tenderness, No distention Extremity Exam: normal inspection, No pedal edema, No swelling Back Exam: normal inspection, No rash OBJECTIVE DATA Vital Signs: Vital Signs - 24 hr Temp Pulse Resp BP Pulse Ox 07/03/19 08:00 97.9 F 74 18 156/70 100 07/03/19 04:00 98.2 F 79 20 158/77 98 07/03/19 00:00 98.5 F 73 22 151/72 97 07/02/19 20:00 98.6 F 66 20 182/79 100 07/02/19 16:00 98.4 F 73 16 171/86 98 07/02/19 12:00 98.1 F 70 16 162/75 100 Pain Assessment - Last Documented Pain Intensity 0 Pain Scale Used 0-10 Pain Scale Intake and Output: Intake & Output 06/30/19 07/01/19 07/02/19 07/03/19 11:59 11:59 11:59 11:59 Intake Total 903 2392 2246 2415 Output Total 5614 552 0264 1125 Balance -197 1992 1046 1290 Weight 54.8 kg 57.2 kg 61.1 kg 61.4 kg Lab Results: Accuchecks Date 07/03/19 Date 07/02/19 Date 07/02/19 Time 07:30 Time 18:43 Time 18:43 Accucheck Value: 76 Accucheck Value: 363 Accucheck Value: 179 Accucheck Value: 118 Lab Results-Last 24 Hours 07/02/19 07/02/19 Range/Units 09:42 09:42 WBC 5.5 (4.0-10.5) K/mm3 RBC 2.95 L (4.1-5.6) M/mm3 Hgb 9.4 L (12.5-18.0) gm/dl Hct 28.2 L (42-50) % MCV 95.6 (78-100) fl MCH 31.9 (26-32) pg MCHC 33.3 (32-36) g/dl RDW 14.0 (11.5-14.0) % Plt Count 88 L (150-450) K/mm3 MPV 8.3 (7.5-11.0) fl Gran % 56.9 (36.0-66.0) % Eos # (Auto) 0.13 (0-0.5) Absolute Lymphs (auto) 1.81 (1.0-4.6) Absolute Monos (auto) 0.42 (0.0-1.3) Lymphocytes % 32.7 (24.0-44.0) % Monocytes % 7.6 (0.0-12.0) % Eosinophils % 2.4 (0.00-5.0) % Basophils % 0.4 (0.0-0.4) % Absolute Granulocytes 3.15 (1.4-6.9) Basophils # 0.02 (0-0.4) Sodium 143 (137-145) mmol/L Potassium 4.5 (3.5-5.1) mmol/L Chloride 111 H (98-107) mmol/L Carbon Dioxide 26 (22-30) mmol/L Anion Gap 10.8 (5-15) MEQ/L BUN 32 H (9-20) mg/dL Creatinine 1.54 H (0.66-1.25) mg/dL Estimated GFR 46.2 ML/MIN Glucose 119 H (74-106) mg/dL Calcium 8.7 (8.4-10.2) mg/dL Slides for Path Review YES Radiology Exams: Radiology Procedures Category Date Time Status ECHO W/2D AND DOPPLER [US] Routine Exams 07/02/19 08:00 Draft Assessment/Plan (1) Pre-syncope Current Visit: Yes Status: Acute Assessment & Plan: Cardiology was consulted yesterday and echo done as well; await reports, thank you. (2) Dehydration Current Visit: Yes Status: Resolved Code(s): E86.0 - DEHYDRATION (3) Fracture of thoracic spine Current Visit: Yes Status: Acute Qualifiers: Encounter type: subsequent encounter Thoracic vertebra fracture level: T12 Fracture type: closed Fracture morphology: wedge compression Fracture healing: with routine healing Qualified Code(s): S22.080D - Wedge compression fracture of T11-T12 vertebra, subsequent encounter for fracture with routine healing Assessment & Plan: possibly subacute Code(s): S22.009A - UNSP FRACTURE OF UNSP THORACIC VERTEBRA, INIT FOR CLOS FX (4) Recurrent falls Current Visit: Yes Status: Acute Code(s): R29.6 - REPEATED FALLS (5) Hypertension Current Visit: No Status: Chronic Qualifiers: Hypertension type: essential hypertension Qualified Code(s): I10 - Essential (primary) hypertension Assessment & Plan: One high bp overnight to 182/79; currently 158/77. Will add prn bp meds. Code(s): I10 - ESSENTIAL (PRIMARY) HYPERTENSION
[2019-07-03] MEDS: NORVASC 5 MG PO SCH (09:10)
[2019-07-03] MEDS: Colace 100 MG PO SCH ×2 (09:11→21:09)
[2019-07-03] MEDS: Pepcid 20 MG PO SCH ×2 (09:12→21:10)
[2019-07-03] MEDS: ECOTRIN 81 MG PO SCH (09:12)
[2019-07-03] MEDS: FOLATE 1 MG PO SCH (09:12)
[2019-07-03] MEDS: VITAMIN D PO SCH (09:12)
[2019-07-03] MEDS: Vitamin C 500 MG PO SCH (09:12)
[2019-07-03] MEDS: Ranexa 500 MG PO SCH ×2 (09:12→21:09)
[2019-07-03] MEDS: PLAVIX 75 MG Tablet PO SCH (09:13)
[2019-07-03] MEDS: SYNTHROID 75 MCG PO SCH (09:13)
[2019-07-03] MEDS: Toprol Xl 50 MG PO SCH (09:13)
[2019-07-03] MEDS: Vitamin B-12 500 MCG PO SCH (09:13)
[2019-07-03] MEDS: ZYLOPRIM 100 MG PO SCH (09:13)
--- NOTE | 2019-07-03 10:03 | CONS ---
TELE-CARDIOLOGY CONSULT DATE: 07/02/2019 REASON FOR CONSULT: Syncope. HISTORY: Jordan Vernon is an 83 year-old gentleman with multiple medical problems including chronic diastolic congestive heart failure, severe aortic stenosis status post transcatheter aortic valve replacement, severe peripheral vascular disease status post multiple previous interventions, hypertension, dyslipidemia, coronary artery disease, who was admitted to [facility] with recurrent falls and syncope. He reports that he has dizziness and "head swimming" prior to all of these episodes. He does feel this coming on and he uses a walker but still has had multiple falls. He did not have any major trauma but during this hospitalization his orthostatics were borderline positive. An echo performed this hospital which I personally reviewed demonstrated preserved ejection fraction and moderate mitral regurgitation. His transcatheter aortic valve replacement is well seated with normal valve gradients and no regurgitation. Currently his blood pressure has been ranging in the 140's to 150's systolic while sitting but it did drop earlier today when he went from supine to sitting position. His heart rate did not change. Heart rate is in the 60's to 70's with one heart rate of 59 earlier today. He has not had any dizziness throughout today. He denies any orthopnea, paroxysmal nocturnal dyspnea, palpitations. He does not have any claudication symptoms at this time and he does not have any peripheral edema. MEDICATIONS: Current inpatient medications reviewed. See MAR for full details. PAST MEDICAL HISTORY: As noted in history of present illness. SOCIAL HISTORY: He lives at home with his . Denies any current smoking. FAMILY HISTORY: Reviewed and noncontributory to this illness. REVIEW OF SYSTEMS: Fourteen system review performed. Pertinent positives noted in H&P otherwise negative. PHYSICAL EXAMINATION: This is a tele-cardiology consultation. I did note his visual appearance which is in no acute distress, frail, elderly appearing gentleman conversant. Per his bedside nurse who is sitting with him, his lungs are clear and he has a soft systolic murmur. He does not have any current peripheral edema. LAB DATA AND TESTS: EKG personally reviewed demonstrated a sinus rhythm with heart rate in the 60's with left atrial abnormality and old anteroseptal infarct pattern. Echo personally reviewed demonstrates normal left ventricular systolic function with ejection fraction 55-60%, moderate mitral regurgitation, transcatheter aortic valve replacement is well seated with no paravalvular leak and no central aortic regurgitation and normal valve gradient, mild tricuspid regurgitation with normal right ventricular systolic pressure. IMPRESSION: 1) Recurrent syncope with possible orthostatic. 2) Resting hypertension. 3) Coronary artery disease with history of ischemic cardiomyopathy. 4) Severe aortic stenosis status post transcatheter aortic valve replacement. 5) Severe bilateral lower extremity peripheral artery disease status post multiple previous interventions which is stable. RECOMMENDATIONS: At this time I will reduce furosemide to 40 mg orally Tuesday, Tuesday, Tuesday; and to add amlodipine 2.5 mg for resting high blood pressure. I would recommend daily a.m. orthostatics to further evaluate for improvement. If the patient develops any ankle swelling can increase Lasix dose PRN. In addition, I will reduce aspirin 325 mg to aspirin 81 mg daily as his most recent peripheral intervention was over six months ago. In the future, he may benefit more from aspirin low dose versus aspirin and clopidogrel. However this can be managed as an outpatient.
[2019-07-03] MEDS: Sodium Chloride 0.9% 1000 ML 1,000 ML IV SCH (11:05)
[2019-07-03] MEDS: HUMALOG SQ PRN ×2 (16:33→21:10)
[2019-07-03] MEDS: monoKET 20 MG PO SCH (21:09)
[2019-07-03] MEDS: Zocor 10MG PO SCH (21:09)
[2019-07-03] MEDS: FEOSOL 325 MG PO SCH (21:09)
[2019-07-03] MEDS: Lantus Insulin SQ SCH (21:10)
[2019-07-03] MEDS: REMERON 30 MG PO SCH (21:10)
[2019-07-04] MEDS: TYLENOL 325 MG PO PRN ×2 (02:01→10:31)
[2019-07-04 08:53] VITALS: BP 175/74; PULSE 75; O2SAT 100
--- NOTE | 2019-07-04 09:39 | PCM.DS ---
Discharge Summary Date of Admission: 06/29/19 17:55 Admitting Physician: EVAN LAROSE Consults: Consults on Case 07/02/19 08:15 Consult Cardiology ROUTINE Primary Care Provider: EVAN LAROSE Allergies Allergies No Known Drug Allergies Allergy (Verified 06/29/19 18:58) Hospital Summary - Hospital Course Hospital Course: 83yo male admitted with pre-syncopal episode, seen by Dr Fran Thompson in consult, echo EF 55-65% TAVR well seated with no paravalvular leak, he suggested medication adjustments and outpatient followup. Mr Vernon is ambulating with his walker in the hospital with no further episodes and feels well. no chest pain or exertional dyspnea etc. - Vitals & Intake/Output Vital Signs: Vital Signs Temperature 98.0 F 07/04/19 08:00 Pulse Rate 75 07/04/19 08:00 Respiratory Rate 16 07/04/19 08:00 Blood Pressure 175/74 07/04/19 08:00 O2 Sat by Pulse Oximetry 100 07/04/19 08:00 Intake & Output: Intake & Output 07/01/19 07/02/19 07/03/19 07/04/19 11:59 11:59 11:59 11:59 Intake Total 2392 2246 2895 1730 Output Total 400 1200 1125 625 Balance 1991 1046 1770 1105 Weight 57.2 kg 61.1 kg 61.4 kg 56.3 kg - Lab Result Diagrams: 07/02/19 09:42 07/02/19 09:42 Lab Results-Last 24 Hrs: Accuchecks Date 07/03/19 Date 07/03/19 Date 07/03/19 Time 16:30 Time 16:30 Time 11:30 Accucheck Value: 339 Accucheck Value: 229 Accucheck Value: 154 Micro Results-Entire Visit: Accuchecks Date 07/03/19 Date 07/03/19 Date 07/03/19 Time 16:30 Time 16:30 Time 11:30 Accucheck Value: 339 Accucheck Value: 229 Accucheck Value: 154 - Procedures and Test Procedures and Tests throughout Hospitalization: Therapy Orders & Screens 07/02/19 07:00 EEG 41-60 Minutes (Normal) ONCE Comment: Reason For Exam: syncope Diagnosis: weakness Discharge Exam General Appearance: no apparent distress Neurologic Exam: alert, oriented x 3, cooperative Respiratory Exam: normal breath sounds, lungs clear, No respiratory distress Cardiovascular Exam: regular rate/rhythm, normal heart sounds Gastrointestinal/Abdomen Exam: soft, No tenderness, No mass Extremity Exam: normal inspection, normal range of motion Skin Exam: normal color, warm, dry Final Diagnosis/Problem List - Final Discharge Diagnosis/Problem (1) Pre-syncope Current Visit: Yes Status: Acute (2) Dehydration Current Visit: Yes Status: Resolved Code(s): E86.0 - DEHYDRATION (3) Frequent falls Current Visit: Yes Status: Acute Code(s): R29.6 - REPEATED FALLS (4) Fracture of thoracic spine Current Visit: Yes Status: Acute Code(s): S22.009A - UNSP FRACTURE OF UNSP THORACIC VERTEBRA, INIT FOR CLOS FX - Discharge Disposition: Home, Self-Care Condition: Stable Prescriptions: New Amlodipine Besylate 2.5 mg PO DAILY #30 tablet Aspirin EC 81 mg [Ecotrin 81 mg] 81 mg PO DAILY #30 tablet.ec Furosemide 40 mg [Lasix 40 MG] 40 mg PO MOWEFR #12 tablet Furosemide 40 mg [Lasix 40 MG] 40 mg PO BID #60 tablet Continue Metoprolol Succinate 50 mg [Toprol Xl 50 MG] 50 mg PO DAILY Levothyroxine Sodium 75 mcg PO DAILY Isosorbide Mononitrate 20 mg [monoKET 20 MG] 20 mg PO HS Rosuvastatin Calcium 5 mg PO DAILY Famotidine [Pepcid] 40 mg PO BID Mirtazapine 15 mg PO DAILY Clopidogrel Bisulfate [Clopidogrel] 75 mg PO DAILY Ranolazine 500 MG [Ranexa 500 MG] 500 mg PO BID Melatonin 1 cap PO HS PRN PRN Reason: Insomnia Allopurinol 100 mg [Zyloprim 100 mg] 100 mg PO DAILY Cyanocobalamin (Vitamin B-12) [Vitamin B-12] 1,000 mcg PO DAILY Ascorbic Acid 500 mg [Vitamin C 500 MG] 500 mg PO DAILY Folic Acid 0.8 mg PO DAILY Iron 65 mg PO HS Insulin Aspart [Novolog] 0 unit SQ UD Insulin Detemir [Levemir] 15 unit SQ HS Docusate Sodium 100 mg [Colace 100 MG] 100 mg PO BID Cholecalciferol (Vitamin D3) [Vitamin D3] 25 mcg PO DAILY Hydrocodone/APAP 5-325 Tab^^^ [Amberson 5-325 Tablet^^^] 1 tab PO Q6HPRN PRN MDD 6 PRN Reason: Pain Discontinued Aspirin EC 325 mg [Ecotrin 325 MG] 325 mg PO DAILY Furosemide 40 mg [Lasix 40 MG] 40 mg PO BID Follow up with: EVAN LAROSE MD [Primary Care Provider] - 1 Week MIKE THOMPSON MD [CONSULTING PHYSICIAN] - 1 Week
[2019-07-04] MEDS ORDERED: Lasix 40 MG PO SCH (10:00)
[2019-07-04] MEDS: Pepcid 20 MG PO SCH (10:33)
[2019-07-04] MEDS: Ranexa 500 MG PO SCH (10:37)
[2019-07-04] MEDS: Vitamin C 500 MG PO SCH (10:37)
[2019-07-04] MEDS: FOLATE 1 MG PO SCH (10:38)
[2019-07-04] MEDS: Toprol Xl 50 MG PO SCH (10:38)
[2019-07-04] MEDS: PLAVIX 75 MG Tablet PO SCH (10:39)
[2019-07-04] MEDS: SYNTHROID 75 MCG PO SCH (10:40)
[2019-07-04] MEDS: Colace 100 MG PO SCH (10:40)
[2019-07-04] MEDS: NORVASC 5 MG PO SCH (10:41)
[2019-07-04] MEDS: ECOTRIN 81 MG PO SCH (10:41)
[2019-07-04] MEDS: ZYLOPRIM 100 MG PO SCH (10:42)
[2019-07-04] MEDS: Vitamin B-12 500 MCG PO SCH (10:46)
== END 2019-07-04 11:40 | disposition home or self-care (01) ==
LOC: ED 11:56 → MED SURG 17:55
PROVIDERS: ADMIT Family Medicine; ATTEND Family Medicine
DX: R55 Syncope and collapse (principal); E86.0 Dehydration; E11.649 Type 2 diabetes mellitus with hypoglycemia without coma; R29.6 Repeated falls; S22.009A Unspecified fracture of unspecified thoracic vertebra, initial encounter for closed fracture; I10 Essential (primary) hypertension; M81.0 Age-related osteoporosis without current pathological fracture; M54.9 Dorsalgia, unspecified; I25.10 Atherosclerotic heart disease of native coronary artery without angina pectoris; E03.9 Hypothyroidism, unspecified; Z95.1 Presence of aortocoronary bypass graft; I25.2 Old myocardial infarction; Z79.899 Other long term (current) drug therapy; Z86.73 Personal history of transient ischemic attack (TIA), and cerebral infarction without residual deficits; I34.0 Nonrheumatic mitral (valve) insufficiency; I73.9 Peripheral vascular disease, unspecified
CPT/HCPCS: 36000; 36415; 70450; 72072; 72100; 80048; 80053; 81001; 82962; 83036; 84436; 84443; 84484; 85025; 93005; 93268; 93306; 94760; 95812; 96360; 99284; G0378; Q3014; J1817; A9270-GY

== ENCOUNTER 2019-09-28 17:03 | Emergency (ER) | payer MEDICARE ==
--- NOTE | 2019-09-28 17:31 | ERPHSYRPT ---
- History of Present Illness Time Seen by Provider: 09/28/19 17:25 Source: patient, EMS Exam Limitations: other (Hearing impaired) Patient Subjective Stated Complaint: Hypoglycemia Triage Nursing Assessment: Patient brought into ED via EMS and transferred to bed with assist of 2. Patient A+O X3. Patient's skin pink, warm and dry. Patient complains of hypoglycemia after checking his blood around noon was 318. Patient states he gave himself 10 units of Novolog. Patient's family started around 1600 he came beligerent and not acting right and Patient's blood sugar was 44. Patient's blood sugar upon arrival is 191. Patient denies pain or discomfort. Physician History: Pt became hypoglycemic w glucose in 40's after giving himself 10units of SQ novolog. He was given 1amp D50 at scene, and sesorium normalized. Pt arrived alert and oriented x3 wo focal weakness. Timing/Duration: today Severity: moderate Modifying Factors: Improves With: medication Associated Symptoms: denies symptoms Allergies/Adverse Reactions: No Known Drug Allergies Allergy (Verified 09/28/19 17:06) Home Medications: Clopidogrel Bisulfate [Clopidogrel] 75 mg PO DAILY 07/05/18 [History] Famotidine [Pepcid] 40 mg PO BID 07/05/18 [History] Isosorbide Mononitrate 20 mg [monoKET 20 MG] 20 mg PO HS 07/05/18 [History] Levothyroxine Sodium 75 mcg PO DAILY 07/05/18 [History] Melatonin 1 cap PO HS PRN 07/05/18 [History] Metoprolol Succinate 50 mg [Toprol Xl 50 MG] 50 mg PO DAILY 07/05/18 [ History] Mirtazapine 15 mg PO DAILY 07/05/18 [History] Ranolazine 500 MG [Ranexa 500 MG] 500 mg PO BID 07/05/18 [History] Rosuvastatin Calcium 5 mg PO DAILY 07/05/18 [History] Allopurinol 100 mg [Zyloprim 100 mg] 100 mg PO DAILY 04/12/19 [History] Ascorbic Acid 500 mg [Vitamin C 500 MG] 500 mg PO DAILY 06/05/19 [History] Cholecalciferol (Vitamin D3) [Vitamin D3] 25 mcg PO DAILY 06/05/19 [History] Cyanocobalamin (Vitamin B-12) [Vitamin B-12] 1,000 mcg PO DAILY 06/05/19 [ History] Docusate Sodium 100 mg [Colace 100 MG] 100 mg PO BID 06/05/19 [History] Folic Acid 0.8 mg PO DAILY 06/05/19 [History] Insulin Aspart [Novolog] 0 unit SQ UD 06/05/19 [History] Insulin Detemir [Levemir] 15 unit SQ HS 06/05/19 [History] Iron 65 mg PO BID 06/05/19 [History] Hx Tetanus, Diphtheria Vaccination/Date Given: Yes Hx Influenza Vaccination/Date Given: Yes Hx Pneumococcal Vaccination/Date Given: Yes Immunizations Up to Date: Yes Travel Risk - International Travel Have you traveled outside of the country in past 3 weeks: No Have you or anyone close to you been diagnosed with or: No Do your reside in a community with a known COVID-19 case?: Yes If Yes where:: [facility] - Coronavirus Screening Has patient experienced Coronavirus symptoms: No - Review of Systems Constitutional: No Symptoms Eyes: No Symptoms Ears, Nose, & Throat: No Symptoms Respiratory: No Symptoms Cardiac: No Symptoms Abdominal/Gastrointestinal: No Symptoms Genitourinary Symptoms: No Symptoms Musculoskeletal: No Symptoms Skin: No Symptoms Neurological: No Symptoms Psychological: No Symptoms Endocrine: No Symptoms Hematologic/Lymphatic: No Symptoms Immunological/Allergic: No Symptoms - Past Medical History Pertinent Past Medical History: Yes Neurological History: Peripheral Neuropathy ENT History: Cataracts Cardiac History: Coronary Artery Disease, High Cholesterol, Hypertension, Myocardial Infarction ([place]) Respiratory History: No Pertinent History Endocrine Medical History: Diabetes Type II, Hypothyroidism Musculoskeletal History: Osteoporosis GI Medical History: Gallbladder Disease History: Renal Disease Psycho-Social History: No Pertinent History Male Reproductive Disorders: No Pertinent History Other Medical History: chronic anemia - Past Surgical History Past Surgical History: Yes Neuro Surgical History: No Pertinent History Cardiac: CABG, Cardiac Stent, Valve Replacement Respiratory: No Pertinent History Gastrointestinal: Cholecystectomy Genitourinary: No Pertinent History Musculoskeletal: Orthopedic Surgery Male Surgical History: No Pertinent History Other Surgical History: STENTS PLACE IN BOTH LEGS. right hip tx in Nov with surgical repair with pin - Social History Smoking Status: Never smoker Exposure to second hand smoke: No Alcohol Use: None Drug Use: none Patient Lives Alone: No Significant Family History: no pertinent family hx - Nursing Vital Signs Nursing Vital Signs: Initial Vital Signs Temperature 98.0 F 09/28/19 17:08 Pulse Rate 62 09/28/19 17:08 Respiratory Rate 18 09/28/19 17:08 Blood Pressure 137/59 09/28/19 17:08 O2 Sat by Pulse Oximetry 97 09/28/19 17:08 Pain Scale Pain Intensity 0 - Physical Exam General Appearance: no apparent distress Eye Exam: PERRL/EOMI, eyes nml inspection Ears, Nose, Throat Exam: normal ENT inspection, TMs normal, pharynx normal, moist mucous membranes Neck Exam: normal inspection, non-tender, supple, full range of motion Respiratory Exam: normal breath sounds, lungs clear, airway intact, No respiratory distress Cardiovascular Exam: regular rate/rhythm, murmur (2/6 THAO) Gastrointestinal/Abdomen Exam: soft, normal bowel sounds, No tenderness Rectal Exam: deferred Back Exam: normal inspection Extremity Exam: normal inspection Neurologic Exam: alert, oriented x 3, cooperative, 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 II-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 nml as tested, normal mood/affect, nml cerebellar function, nml station & gait, sensation nml, motor deficits Skin Exam: normal color, warm, dry Lymphatic Exam: No adenopathy SpO2 Interpretation: normal SpO2: 97 O2 Delivery: Room Air - Course Nursing assessment & vital signs reviewed: Yes Ordered Tests: Active Orders 24 hr Category Date Time Status ACCUCHECK [Accucheck] STAT Care 09/28/19 18:29 Active BMP Stat Lab 09/28/19 17:30 Completed Lab/Rad Data: Laboratory Result Diagrams 09/28/19 17:30 Laboratory Results 09/28/19 Range/Units 17:30 Sodium 142 (137-145) mmol/L Potassium 4.3 (3.5-5.1) mmol/L Chloride 103 (98-107) mmol/L Carbon Dioxide 26 (22-30) mmol/L Anion Gap 16.8 H (5-15) MEQ/L BUN 50 H (9-20) mg/dL Creatinine 2.21 H (0.66-1.25) mg/dL Estimated GFR 30.4 ML/MIN Glucose 91 (74-106) mg/dL Calcium 9.2 (8.4-10.2) mg/dL - Progress Progress: unchanged, improved Progress Note: 09/28/19 18:09 Pt ate dinner tray in ER. 09/28/19 18:30 Pt alert and oriented during stay. After dinner, glucose 141. 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 Take your Lantus as usual tonight. Avoid any novolog for the next 12 hours. Eat well. Return to ER as needed. Follow up with your family MD early next week
[2019-09-28 17:55] LABS: ANION GAP 16.8 MEQ/L (5-15); Calcium 9.2 mg/dL (8.4-10.2); Creatinine 1 2.21 mg/dL (0.66-1.25); Potassium 4.3 mmol/L (3.5-5.1)
[2019-09-28 18:30] VITALS: BP 144/68; PULSE 68
[2019-09-28 18:34] VITALS: O2SAT 97
== END 2019-09-28 18:44 | disposition home or self-care (01) ==
LOC: ED 17:03
DX: E11.649 Type 2 diabetes mellitus with hypoglycemia without coma (principal); E16.0 Drug-induced hypoglycemia without coma; T38.3X5A Adverse effect of insulin and oral hypoglycemic [antidiabetic] drugs, initial encounter; E03.9 Hypothyroidism, unspecified; G62.9 Polyneuropathy, unspecified; I25.10 Atherosclerotic heart disease of native coronary artery without angina pectoris; E78.00 Pure hypercholesterolemia, unspecified; M81.0 Age-related osteoporosis without current pathological fracture; N28.9 Disorder of kidney and ureter, unspecified; I10 Essential (primary) hypertension; I25.2 Old myocardial infarction
CPT/HCPCS: 36415; 80048; 82962; 99284

== ENCOUNTER 2019-11-19 18:00 | Emergency (ER) | payer MEDICARE ==
--- NOTE | 2019-11-19 18:03 | ERPHSYRPT ---
- History of Present Illness Time Seen by Provider: 11/19/19 18:02 Source: patient, family Exam Limitations: clinical condition Physician History: An 84-year-old male who has known, significant peripheral vascular disease with ulcerations of his left foot and ankle. Patient was scheduled to see his burglary investigator tomorrow to make arrangements for further evaluation including an angiogram to assess arterial flow to these ulceration sites. Patient has a history of hypertension and insulin-dependent diabetes. He has chronic anemia he has had a history of a CVA in the past. Patient has chronic diabetic foot ulcers and has coronary artery disease. He is on Plavix. Patient's family state that he was more confused today than usual. Patient also states he is very weak. He arrives hypoxic, hypotensive and bradycardic. Patient is a DO NOT RESUSCITATE patient. Timing/Duration: today, worse Severity: severe Associated Symptoms: shortness of breath, weakness Allergies/Adverse Reactions: No Known Drug Allergies Allergy (Verified 11/19/19 18:17) Home Medications: Clopidogrel Bisulfate [Clopidogrel] 75 mg PO DAILY 07/05/18 [History] Famotidine [Pepcid] 40 mg PO BID 07/05/18 [History] Isosorbide Mononitrate 20 mg [monoKET 20 MG] 20 mg PO HS 07/05/18 [History] Levothyroxine Sodium 75 mcg PO DAILY 07/05/18 [History] Melatonin 1 cap PO HS PRN 07/05/18 [History] Metoprolol Succinate 50 mg [Toprol Xl 50 MG] 50 mg PO DAILY 07/05/18 [History] Mirtazapine 15 mg PO DAILY 07/05/18 [History] Ranolazine 500 MG [Ranexa 500 MG] 500 mg PO BID 07/05/18 [History] Rosuvastatin Calcium 5 mg PO DAILY 07/05/18 [History] Allopurinol 100 mg [Zyloprim 100 mg] 100 mg PO DAILY 04/12/19 [History] Ascorbic Acid 500 mg [Vitamin C 500 MG] 500 mg PO DAILY 06/05/19 [History] Cholecalciferol (Vitamin D3) [Vitamin D3] 25 mcg PO DAILY 06/05/19 [History] Cyanocobalamin (Vitamin B-12) [Vitamin B-12] 1,000 mcg PO DAILY 06/05/19 [History] Docusate Sodium 100 mg [Colace 100 MG] 100 mg PO BID 06/05/19 [History] Folic Acid 0.8 mg PO DAILY 06/05/19 [History] Insulin Aspart [Novolog] 0 unit SQ UD 06/05/19 [History] Insulin Detemir [Levemir] 15 unit SQ HS 06/05/19 [History] Iron 65 mg PO BID 06/05/19 [History] Hx Tetanus, Diphtheria Vaccination/Date Given: Yes Hx Influenza Vaccination/Date Given: Yes Hx Pneumococcal Vaccination/Date Given: Yes - Past Medical History Pertinent Past Medical History: Yes Neurological History: Peripheral Neuropathy ENT History: Cataracts Cardiac History: Coronary Artery Disease, High Cholesterol, Hypertension, Myocardial Infarction ([place]) Respiratory History: No Pertinent History Endocrine Medical History: Diabetes Type II, Hypothyroidism Musculoskeletal History: Osteoporosis GI Medical History: Gallbladder Disease History: Renal Disease Psycho-Social History: No Pertinent History Male Reproductive Disorders: No Pertinent History Other Medical History: chronic anemia - Past Surgical History Past Surgical History: Yes Neuro Surgical History: No Pertinent History Cardiac: CABG, Cardiac Stent, Valve Replacement Respiratory: No Pertinent History Gastrointestinal: Cholecystectomy Genitourinary: No Pertinent History Musculoskeletal: Orthopedic Surgery Male Surgical History: No Pertinent History Other Surgical History: STENTS PLACE IN BOTH LEGS. right hip tx in Nov with surgical repair with pin - Social History Smoking Status: Never smoker Exposure to second hand smoke: No Alcohol Use: None Drug Use: none Patient Lives Alone: No Significant Family History: no pertinent family hx - Nursing Vital Signs Nursing Vital Signs: Initial Vital Signs Temperature 97.8 F 11/19/19 18:17 Pulse Rate 44 L 11/19/19 18:17 Respiratory Rate 14 11/19/19 18:17 Blood Pressure 98/56 11/19/19 18:17 O2 Sat by Pulse Oximetry 97 11/19/19 18:17 Pain Scale Pain Intensity 7 - Course Nursing assessment & vital signs reviewed: Yes EKG Interpreted by Me: RATE (45), Sinus Iain, NORMAL AXIS, Other (Atrial premature complex. No acute ST segment elevation. Comparison EKG is 06/29/2019 where there was a sinus arrhythmia heart rate of 66.) Ordered Tests: Active Orders 24 hr Category Date Time Status Retail Experience Specialist STAT Care 11/19/19 18:50 Active EKG-ER Only STAT Care 11/19/19 18:49 Active Peoples [Catheter-[place] [facility]] STAT Care 11/19/19 19:01 Active IV Insertion STAT Care 11/19/19 18:49 Active IV Insertion-2nd Peripheral STAT Care 11/19/19 19:01 Active Oxygen-ED Only Nasal Cannula 5 lpm Care 11/19/19 19:00 Active Pulse Oximetry (ED) STAT Care 11/19/19 18:49 Active CHEST 1 VIEW (PORTABLE) Stat Exams 11/19/19 18:50 Taken BLOOD CULTURE Stat Lab 11/19/19 19:00 Received CBC W DIFF Stat Lab 11/19/19 19:27 Completed CMP Stat Lab 11/19/19 19:27 Completed Lactic Acid Stat Lab 11/19/19 19:00 Completed Lactic Acid Stat Lab 11/19/19 21:21 Received MAGNESIUM Stat Lab 11/19/19 19:27 Completed NT PRO BNP Stat Lab 11/19/19 19:27 Completed PROTIME WITH INR Stat Lab 11/19/19 19:27 Completed TROPONIN Q3H Lab 11/19/19 19:27 Completed TROPONIN Q3H Lab 11/19/19 22:00 Ordered TROPONIN Q3H Lab 11/20/19 01:00 Ordered TROPONIN Q3H Lab 11/20/19 04:00 Ordered TROPONIN Q3H Lab 11/20/19 07:00 Ordered UA W/RFX UR CULTURE Stat Lab 11/19/19 19:27 Completed VBG [VENOUS BLOOD GAS] Stat Lab 11/19/19 19:19 Completed Medication Summary Generic Name Dose Route Start Last Admin Trade Name Freq PRN Reason Stop Dose Admin Sodium Chloride 1,000 mls @ 50 mls/hr 11/19/19 19:00 11/19/19 19:57 Sodium Chloride 0.9% 1000 Ml IV 12/19/19 18:59 999 mls/hr .Q20H KATHYA Infusion Discontinued Medications Generic Name Dose Route Start Last Admin Trade Name Freq PRN Reason Stop Dose Admin Meropenem 1 g/ Sodium Chloride 100 mls @ 200 mls/hr 11/19/19 20:02 11/19/19 20:10 IV 11/19/19 20:31 200 mls/hr STAT ONE Administration Sodium Chloride Confirm 11/19/19 20:05 Sodium Chloride 0.9% 100 Ml Ivpb Administered 11/19/19 20:06 Dose 100 mls @ ud IV .STK-MED ONE Meropenem Confirm 11/19/19 20:05 Merrem 1 Gm Administered 11/19/19 20:06 Dose 1 g IV .STK-MED ONE Morphine Sulfate 2 mg 11/19/19 19:54 11/19/19 19:56 Morphine Sulfate 2 Mg Inj IV 11/19/19 19:55 2 mg STAT ONE Administration Morphine Sulfate Confirm 11/19/19 19:55 Morphine Sulfate 2 Mg Inj Administered 11/19/19 19:56 Dose 2 mg .ROUTE .STK-MED ONE Morphine Sulfate Confirm 11/19/19 21:18 Morphine Sulfate 2 Mg Inj Administered 11/19/19 21:19 Dose 2 mg .ROUTE .STK-MED ONE Ondansetron HCl 4 mg 11/19/19 19:55 11/19/19 19:56 Zofran 4 Mg/2 Ml Vial IV 11/19/19 19:56 4 mg STAT ONE Administration Ondansetron HCl Confirm 11/19/19 19:55 Zofran 4 Mg/2 Ml Vial Administered 11/19/19 19:56 Dose 4 mg .ROUTE .STK-MED ONE Lab/Rad Data: Laboratory Result Diagrams 11/19/19 19:27 11/19/19 19:27 Laboratory Results 11/19/19 11/19/19 11/19/19 Range/Units 19:27 19:27 19:27 WBC (4.0-10.5) K/mm3 RBC (4.1-5.6) M/mm3 Hgb (12.5-18.0) gm/dl Hct (42-50) % MCV (78-100) fl MCH (26-32) pg MCHC (32-36) g/dl RDW (11.5-14.0) % Plt Count (150-450) K/mm3 MPV (7.5-11.0) fl Gran % (36.0-66.0) % Eos # (Auto) (0-0.5) Absolute Lymphs (auto) (1.0-4.6) Absolute Monos (auto) (0.0-1.3) Lymphocytes % (24.0-44.0) % Monocytes % (0.0-12.0) % Eosinophils % (0.00-5.0) % Basophils % (0.0-0.4) % Absolute Granulocytes (1.4-6.9) Basophils # (0-0.4) PT 14.2 H (8.83-12.87) SECONDS INR 1.25 (0.8-3.0) pO2/FiO2 Ratio % VBG pH (7.32-7.42) VBG pCO2 at Pat Temp (42-55) mm/Hg VBG pO2 at Pat Temp (25-40) mm/Hg VBG HCO3 (22-28) meq/L VBG O2 Sat (Radha) (95-100) VBG Base Excess (-2.0-2.0) VBG Hemoglobin VBG Carboxyhemoglobin (0.0-6.9) % T HGB POC Potassium (3.5-5.1) Sodium (137-145) mmol/L Potassium (3.5-5.1) mmol/L Chloride (98-107) mmol/L Carbon Dioxide (22-30) mmol/L Anion Gap (5-15) MEQ/L BUN (9-20) mg/dL Creatinine (0.66-1.25) mg/dL Estimated GFR ML/MIN Glucose (74-106) mg/dL Lactic Acid (0.4-2.0) Calcium (8.4-10.2) mg/dL Magnesium (1.6-2.3) mg/dL Total Bilirubin (0.2-1.3) mg/dL AST (17-59) U/L ALT (0-50) U/L Alkaline Phosphatase (38-126) U/L Troponin I 1.940 H* (0.000-0.034) ng/mL NT-Pro-B Natriuret Pep (0-1800) pg/mL Serum Total Protein (6.3-8.2) g/dL Albumin (3.5-5.0) g/dL Urine Color YELLOW (YELLOW) Urine Appearance CLEAR (CLEAR) Urine pH 5.0 (5-6) Ur Specific [place] 1.017 (1.005-1.025) Urine Protein NEGATIVE (Negative) Urine Ketones NEGATIVE (NEGATIVE) Urine Blood NEGATIVE (0-5) Vasu/ul Urine Nitrite NEGATIVE (NEGATIVE) Urine Bilirubin NEGATIVE (NEGATIVE) Urine Urobilinogen NEGATIVE (0-1) mg/dL Ur Leukocyte Esterase NEGATIVE (NEGATIVE) Urine WBC (Auto) 3-5 (0-5) /HPF Urine RBC (Auto) 0-2 (0-2) /HPF U Hyaline Cast (Auto) 11-25 (0-2) /LPF U Epithel Cells (Auto) NONE (FEW) /HPF Urine Bacteria (Auto) NONE (NEGATIVE) /HPF Urine Mucus (Auto) SLIGHT (NEGATIVE) /HPF Urine Culture Reflexed NO (NO) Urine Glucose NEGATIVE (NEGATIVE) mg/dL 11/19/19 11/19/19 11/19/19 Range/Units 19:27 19:27 19:19 WBC 9.3 (4.0-10.5) K/mm3 RBC 2.46 L (4.1-5.6) M/mm3 Hgb 8.1 L (12.5-18.0) gm/dl Hct 24.8 L (42-50) % MCV 100.8 H (78-100) fl MCH 32.9 H (26-32) pg MCHC 32.7 (32-36) g/dl RDW 14.1 H (11.5-14.0) % Plt Count 115 L (150-450) K/mm3 MPV 10.0 (7.5-11.0) fl Gran % 70.6 H (36.0-66.0) % Eos # (Auto) 0.04 (0-0.5) Absolute Lymphs (auto) 2.18 (1.0-4.6) Absolute Monos (auto) 0.50 (0.0-1.3) Lymphocytes % 23.4 L (24.0-44.0) % Monocytes % 5.4 (0.0-12.0) % Eosinophils % 0.4 (0.00-5.0) % Basophils % 0.2 (0.0-0.4) % Absolute Granulocytes 6.59 (1.4-6.9) Basophils # 0.02 (0-0.4) PT (8.83-12.87) SECONDS INR (0.8-3.0) pO2/FiO2 Ratio 40.0 % VBG pH 7.21 L* (7.32-7.42) VBG pCO2 at Pat Temp 31 L (42-55) mm/Hg VBG pO2 at Pat Temp 24 L (25-40) mm/Hg VBG HCO3 12.4 L* (22-28) meq/L VBG O2 Sat (Radha) 38.8 L (95-100) VBG Base Excess -14.2 L (-2.0-2.0) VBG Hemoglobin 8.3 VBG Carboxyhemoglobin 0.6 (0.0-6.9) % T HGB POC Potassium 5.7 H (3.5-5.1) Sodium 133 L (137-145) mmol/L Potassium 5.5 H (3.5-5.1) mmol/L Chloride 107 (98-107) mmol/L Carbon Dioxide 11 L* (22-30) mmol/L Anion Gap 20.7 H (5-15) MEQ/L BUN 75 H (9-20) mg/dL Creatinine 3.08 H (0.66-1.25) mg/dL Estimated GFR 20.7 ML/MIN Glucose 237 H (74-106) mg/dL Lactic Acid (0.4-2.0) Calcium 8.2 L (8.4-10.2) mg/dL Magnesium 3.0 H (1.6-2.3) mg/dL Total Bilirubin 0.60 (0.2-1.3) mg/dL AST 535 H (17-59) U/L ALT 394 H (0-50) U/L Alkaline Phosphatase 189 H (38-126) U/L Troponin I (0.000-0.034) ng/mL NT-Pro-B Natriuret Pep 63120 H (0-1800) pg/mL Serum Total Protein 5.9 L (6.3-8.2) g/dL Albumin 3.4 L (3.5-5.0) g/dL Urine Color (YELLOW) Urine Appearance (CLEAR) Urine pH (5-6) Ur Specific [place] (1.005-1.025) Urine Protein (Negative) Urine Ketones (NEGATIVE) Urine Blood (0-5) Vasu/ul Urine Nitrite (NEGATIVE) Urine Bilirubin (NEGATIVE) Urine Urobilinogen (0-1) mg/dL Ur Leukocyte Esterase (NEGATIVE) Urine WBC (Auto) (0-5) /HPF Urine RBC (Auto) (0-2) /HPF U Hyaline Cast (Auto) (0-2) /LPF U Epithel Cells (Auto) (FEW) /HPF Urine Bacteria (Auto) (NEGATIVE) /HPF Urine Mucus (Auto) (NEGATIVE) /HPF Urine Culture Reflexed (NO) Urine Glucose (NEGATIVE) mg/dL 11/19/19 Range/Units 19:00 WBC (4.0-10.5) K/mm3 RBC (4.1-5.6) M/mm3 Hgb (12.5-18.0) gm/dl Hct (42-50) % MCV (78-100) fl MCH (26-32) pg MCHC (32-36) g/dl RDW (11.5-14.0) % Plt Count (150-450) K/mm3 MPV (7.5-11.0) fl Gran % (36.0-66.0) % Eos # (Auto) (0-0.5) Absolute Lymphs (auto) (1.0-4.6) Absolute Monos (auto) (0.0-1.3) Lymphocytes % (24.0-44.0) % Monocytes % (0.0-12.0) % Eosinophils % (0.00-5.0) % Basophils % (0.0-0.4) % Absolute Granulocytes (1.4-6.9) Basophils # (0-0.4) PT (8.83-12.87) SECONDS INR (0.8-3.0) pO2/FiO2 Ratio % VBG pH (7.32-7.42) VBG pCO2 at Pat Temp (42-55) mm/Hg VBG pO2 at Pat Temp (25-40) mm/Hg VBG HCO3 (22-28) meq/L VBG O2 Sat (Radha) (95-100) VBG Base Excess (-2.0-2.0) VBG Hemoglobin VBG Carboxyhemoglobin (0.0-6.9) % T HGB POC Potassium (3.5-5.1) Sodium (137-145) mmol/L Potassium (3.5-5.1) mmol/L Chloride (98-107) mmol/L Carbon Dioxide (22-30) mmol/L Anion Gap (5-15) MEQ/L BUN (9-20) mg/dL Creatinine (0.66-1.25) mg/dL Estimated GFR ML/MIN Glucose (74-106) mg/dL Lactic Acid 4.2 H (0.4-2.0) Calcium (8.4-10.2) mg/dL Magnesium (1.6-2.3) mg/dL Total Bilirubin (0.2-1.3) mg/dL AST (17-59) U/L ALT (0-50) U/L Alkaline Phosphatase (38-126) U/L Troponin I (0.000-0.034) ng/mL NT-Pro-B Natriuret Pep (0-1800) pg/mL Serum Total Protein (6.3-8.2) g/dL Albumin (3.5-5.0) g/dL Urine Color (YELLOW) Urine Appearance (CLEAR) Urine pH (5-6) Ur Specific [place] (1.005-1.025) Urine Protein (Negative) Urine Ketones (NEGATIVE) Urine Blood (0-5) Vasu/ul Urine Nitrite (NEGATIVE) Urine Bilirubin (NEGATIVE) Urine Urobilinogen (0-1) mg/dL Ur Leukocyte Esterase (NEGATIVE) Urine WBC (Auto) (0-5) /HPF Urine RBC (Auto) (0-2) /HPF U Hyaline Cast (Auto) (0-2) /LPF U Epithel Cells (Auto) (FEW) /HPF Urine Bacteria (Auto) (NEGATIVE) /HPF Urine Mucus (Auto) (NEGATIVE) /HPF Urine Culture Reflexed (NO) Urine Glucose (NEGATIVE) mg/dL - Progress Progress: re-examined Progress Note: 11/19/19 20:00 Chest x-ray reveals right mid to lower lobe infiltrates. 11/19/19 20:31 11/19/19 20:52 Medical decision making: This patient has multi-organ systems that appear to be in the early stages of failing. He is hypoxic, he is bradycardic, he has renal failure, he has an elevated troponin level, he has liver enzymes that are elevated. He has evidence of sepsis as well. The family has made him a DO NOT RESUSCITATE patient. They do not want him transferred to [facility]. They want to keep him comfortable but treat his pneumonia that is present and give pain control and IV hydration for now. I spoke with Dr. Larose. We will bring him into the hospital for the above treatment plus comfort measures. We will obtain a COVID-19 rapid test first. 11/19/19 21:43 Patient monitor was reading asystole. His systolic blood pressure was in the 70s. I went in to evaluate the patient and he had no spontaneous breath sounds and no spontaneous heart tones. He had no palpable pulse his pupils were fixed and dilated. The patient time of is 2139. Counseled pt/family regarding: lab results, need for follow-up, rad results - Departure Departure Disposition: Clinical Impression: Anemia, Elevated liver enzymes, Congestive heart failure, Renal failure, Sepsis, Hypoxia, Bradycardia, Peripheral vascular disease Condition: Critical Care Time: Yes Critical Care Time(excluding separately billable procedures): Critical 30-74 min s Referrals: EVAN LAROSE MD [Primary Care Provider] - Instructions: Heart Failure
[2019-11-19] MEDS ORDERED: Sodium Chloride 0.9% 1000 ML 1,000 ML ONE (19:04)
[2019-11-19] MEDS: Sodium Chloride 0.9% 1000 ML 1,000 ML IV SCH (19:06)
[2019-11-19 19:18] VITALS: O2SAT 92
[2019-11-19 19:25] LABS: VBG BASE EXCESS -14.2 (-2.0-2.0); VBG CARBOXYHEMOGLOBIN 0.6 % T HGB (0.0-6.9); VBG HCO3- 12.4 meq/L (22-28); VBG HEMOGLOBIN 8.3; VBG O2 SATURATION 38.8 (95-100); VBG POTASSIUM 5.7 (3.5-5.1)
[2019-11-19 19:26] LABS: VBG pH 7.21 (7.32-7.42)
[2019-11-19 19:27] LABS: Absolute Neutrophil Ct (ANC) 6.59 (1.4-6.9); BASOPHIL % 0.2 % (0.0-0.4); Basophil (Absolute #) 0.02 (0-0.4); Eosinophil % 0.4 % (0.00-5.0); Eosinophil (Absolute #) 0.04 (0-0.5); Hematocrit 24.8 % (42-50); Hemoglobin 8.1 gm/dl (12.5-18.0); Lymphocyte (Absolute #) 2.18 (1.0-4.6); Lymphocytes % 23.4 % (24.0-44.0); Mean Cell Volume 100.8 fl (78-100); Mean Corpuscular Hemoglobin 32.9 pg (26-32); Mean Corpuscular Hgb Concent. 32.7 g/dl (32-36); Monocytes % 5.4 % (0.0-12.0); Neutrophil % 70.6 % (36.0-66.0); Platelet Count 115 K/mm3 (150-450); Red Blood Count 2.46 M/mm3 (4.1-5.6); Red Cell Distribution Width 14.1 % (11.5-14.0); White Blood Count 9.3 K/mm3 (4.0-10.5)
[2019-11-19 19:29] LABS: Appearance CLEAR (CLEAR); Bilirubin NEGATIVE (NEGATIVE); Blood NEGATIVE Ery/ul (0-5); Glucose NEGATIVE (NEGATIVE); Ketones NEGATIVE (NEGATIVE); Leukocyte Esterase NEGATIVE (NEGATIVE); Mucus SLIGHT /HPF (NEGATIVE); Nitrite NEGATIVE (NEGATIVE); Protein,Urine Dip NEGATIVE (Negative); RBC 0-2 /HPF (0-2); Specific Gravity 1.017 (1.005-1.025); Urobilinogen NEGATIVE mg/dL (0-1)
[2019-11-19 19:37] LABS: INR 1.25 (0.8-3.0); PROTIME 14.2 SECONDS (8.83-12.87)
[2019-11-19 19:49] LABS: ALBUMIN 3.4 g/dL (3.5-5.0); ANION GAP 20.7 MEQ/L (5-15); BILIRUBIN,TOTAL 0.6 mg/dL (0.2-1.3); Calcium 8.2 mg/dL (8.4-10.2); Creatinine 1 3.08 mg/dL (0.66-1.25); Potassium 5.5 mmol/L (3.5-5.1); Total Protein 5.9 g/dL (6.3-8.2)
[2019-11-19] MEDS ORDERED: MORPHINE SULFATE 2 MG INJ ONE ×2 (19:55→21:18)
[2019-11-19] MEDS ORDERED: Zofran 4 MG/2 ML VIAL ONE (19:55)
[2019-11-19] MEDS: MORPHINE SULFATE 2 MG INJ IV ONE ×2 (19:56→21:21)
[2019-11-19] MEDS: Zofran 4 MG/2 ML VIAL IV ONE (19:56)
[2019-11-19] MEDS ORDERED: Sodium Chloride 0.9% 100 ML IVPB 100 ML IV ONE (20:05)
[2019-11-19] MEDS ORDERED: Merrem 1 GM IV ONE (20:05)
[2019-11-19] MEDS: Merrem 1 GM 1 G in Sodium Chloride 100ML MINI-BAG PLUS 100 ML IV ONE (20:10)
[2019-11-19 21:52] VITALS: BP 73/31; PULSE 31
--- NOTE | 2019-11-20 08:51 | XRAY ---
Indication: Short of breath. Comparison: July 07, 2018. Portable chest demonstrates new right perihilar hazy airspace opacity with stable incidental tiny calcified granulomas. Heart is not enlarged again with cardiac valvular replacement surgery. Bony thorax intact again with mild osteopenia, degenerative changes, and lower cervical fusion surgery.
== END 2019-11-19 21:40 | disposition expired ==
LOC: ED 18:00
DX: D64.9 Anemia, unspecified (principal); R74.8 Abnormal levels of other serum enzymes; I50.9 Heart failure, unspecified; N18.9 Chronic kidney disease, unspecified; A41.9 Sepsis, unspecified organism; I12.9 Hypertensive chronic kidney disease with stage 1 through stage 4 chronic kidney disease, or unspecified chronic kidney disease; R09.02 Hypoxemia; R00.1 Bradycardia, unspecified; R91.8 Other nonspecific abnormal finding of lung field; I73.9 Peripheral vascular disease, unspecified; I25.10 Atherosclerotic heart disease of native coronary artery without angina pectoris; Z86.73 Personal history of transient ischemic attack (TIA), and cerebral infarction without residual deficits; L97.329 Non-pressure chronic ulcer of left ankle with unspecified severity; L97.529 Non-pressure chronic ulcer of other part of left foot with unspecified severity; E11.9 Type 2 diabetes mellitus without complications; I25.2 Old myocardial infarction; R06.02 Shortness of breath; E03.9 Hypothyroidism, unspecified; R53.1 Weakness; M81.0 Age-related osteoporosis without current pathological fracture; Z79.899 Other long term (current) drug therapy; E78.00 Pure hypercholesterolemia, unspecified; Z95.2 Presence of prosthetic heart valve
CPT/HCPCS: 51702; 80053; 81001; 82805; 83605; 83735; 83880; 84484; 85025; 85610; 87040; 93005; 93041; 96360; 96365; 96374; 96375; 96376; 99291; U0003; 36000; 36415; 71045; 94760; 99285; J2270; J2405